=== PATIENT | male | born 1970 | race African-American/Black ===

== ENCOUNTER 2020-08-03 08:40 | Emergency (ER) | payer MEDICARE, SELFPAY ==
--- NOTE | 2020-08-03 09:01 | ED.GENADULT ---
HPI - General Adult General Chief complaint: Back Pain/Injury Stated complaint: sciatic nerve pain Time Seen by Provider: 08/03/20 09:01 Source: patient Mode of arrival: ambulatory Limitations: no limitations History of Present Illness HPI narrative: 50-year-old male patient presents to the [facility] with complaints of right-sided low back pain since late June. Patient states he has had multiple lumbar back surgeries before in the past and does have chronic issues with his sciatic nerve pain. Patient states that he was raking leaves late June and doing a lot of bending down and later on that day he developed some of the pain to the right side of the lower back that radiates down to the right leg. Patient denies any loss of bowel or bladder control and denies any falling. Patient states he is able to ambulate but does have increased pain when doing so. Patient denies any numbness or tingling down the legs at this time. Patient states he has been trying to treat this with [id number] Aleve and Tylenol which has not helped much. Patient states he does see a pain management doctor but has not been able to get in due to the holiday weekend. Patient states he has been given a Medrol dose pack and a steroid shot for this before in the past which has helped. Related Data Home Medications Medication Instructions Recorded Confirmed Fish Oil 08/03/20 amlodipine 08/03/20 ascorbate calcium (vitamin C) 08/03/20 cholecalciferol (vitamin D3) 08/03/20 omeprazole 08/03/20 Allergies Allergy/AdvReac Type Severity Reaction Status Date / Time No Known Allergies Allergy Verified 08/03/20 09:09 Review of Systems Review of Systems: Narrative: CONSTITUTIONAL: Denies fever, chills, or sweats. EYES: Denies visual changes, redness, or discharge. ENT: Denies rhinorrhea, congestion, sore throat, or otalgia. CARDIOVASCULAR: Denies chest pain, palpitations, or edema. RESPIRATORY: Denies cough or dyspnea. GASTROINTESTINAL: Denies abdominal pain, nausea, vomiting, or diarrhea. GENITOURINARY: Denies dysuria or hematuria. SKIN: Denies rash or itching. MUSCULOSKELETAL: Positive right-sided low back pain, denies joint pain, or myalgia. NEUROLOGIC: Denies headache, numbness, or weakness. PSYCHIATRIC: Denies anxiety or depression. PMFSH Surgical History Surgical History (Updated 08/03/20 @ 09:21 by RICHMOND Disla) Previous back surgery lumbar back surgery Social History Social History Gender identity (if verbalized by the patient): Male Comments At the time of my signature I agree with nursing past medical history, surgical, social, and family history. There is no relevant family history pertinent to the presenting complaint. Exam Narrative: Exam Narrative: GENERAL: Well-appearing, well-nourished, and in no acute distress. HEAD: Normocephalic, atraumatic. EYES: PERRLA and EOMI. ENT: Nares clear, no rhinorrhea or epistaxis. Mucous membranes moist. NECK: Supple. No lymphadenopathy CHEST: Clear to auscultation. No respiratory distress. HEART: Regular rate and rhythm. No murmur heard. Normal peripheral pulses. ABDOMEN: Soft, nontender, nondistended, normal active bowel sounds. EXTREMITIES: Normal range of motion. No edema. BACK: Patient is able to ambulated without assistance. Pt is seated on the stretcher in no obvouis distress. No surface trauma noted. muscle tenderness to Palpation to the right lateral lumbar spine area. Patient does have some pain to the center of the right buttock when pressure is applied and does radiate down the right leg when this is done. No spasm or mass. No step-offs or deformity noted to the cervical, thoracic or lumbar spine to firm Palpation at the midline. No CVA tenderness to percussion. No saddle anesthesia. ROM: able to stand erect. Decrease flexion, extension due to pain, normal lateral bending and rotation without limitation or comp
[2020-08-03 09:02] VITALS: BP 135/90; PULSE 93; RESP 16; TEMP 36.4; O2SAT 99
== END 2020-08-03 09:25 | disposition home or self-care (01) ==
PROVIDERS: Emergency Provider Nurse Practitioner Family
DX: M54.31 Sciatica, right side (principal); I10 Essential (primary) hypertension
CPT/HCPCS: 99203; G0463

== ENCOUNTER 2024-05-22 15:00 | Outpatient (RCR) | payer MEDICAID, SELFPAY ==
--- NOTE | 2024-02-29 14:14 | OPREHPOC ---
Outpatient Therapy Plan of Care This is a Multidisciplinary Plan of Care that may contain components documented by all disciplines (PT, OT, and ST.) PT Problem 1 PT Problem #1 Knowledge Deficit PT Goal 1 Goal *indep with HEP Target Visit 10 PT Problem 2 PT Problem #2 Impaired Strength PT Goal 1 Goal increase strength of R LE to improve walking and balance skills 1* single leg standing R x 10 seconds 2* sitting R ankle circles x 20 reps with good control Target Visit 8 PT Problem 3 PT Problem #3 Impaired Functional Mobil PT Goal 1 Goal 1* 2 minute walking test distance of 400' 2* with 2 minute walking test, no R toe drag 3* Robin balance score of 56/56 4* pt transfer sitting/floor with use of UE on mat , modified indep 5* up/down 12 steps with one hand railing, modified indep Target Visit 8
--- NOTE | 2024-02-29 14:14 | PTOPEVAL1 ---
Assessment and note entered by Joan Putnam, PT Evaluation Information Assessment Status Evaluation Diagnosis hemiparesis s/p CVA Onset Jul 2023 Subjective Information has completed in pt and [facility] therapy services; R hand dominant; taking baclofen for tone; R arm had botox injection; prior to CVA, lived alone, now live with sister Edna; indep with bathing, with tub seat and indep with dressing; sister assist with home tasks due to decrease use of L arm--laundry, cooking; have driven around the block only; 6 steps to enter home with bilateral hand rails. 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 Reported Pain Level Pain Score 0: Self Report Assessment PT Clinical Summary Govind has the diagnosis of R hemiparesis s/p CVA in July. He has completed in pt, [facility] therapy services. 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 His sister Edna was present during the eval. He currently is living with her. And is motivated to get stronger and return to work. With the evaluation: he has increased tone in R LE with foot drop with walking; indep with sit/ stand with use of 1 UE; 5 reps sit/stand time of 16 seconds with 1 UE; 2 minute walking test distance of 275'; single leg standing R 2 sec/ L 9 seconds and Robin balance score of 47/56. Skilled PT services are indicated to increase LE strength, balance, gait and mobility skills, to be more indep and return to active lifestyle. Plan of Care Interventions Gait Training,Neuro Re-education,Patient Education,Therapeutic Activities,Therapeutic Exercise PT Services Indicated Yes Treatment Frequency and 2x/wk for 8 visits Duration These treatments will address the objective and functional deficits as defined above. The patient will be advanced safely and appropriately in order for the patient to
--- NOTE | 2024-02-29 14:25 | PCPTNOTE ---
faxed request to medical provider for OT eval/treat; during eval, pt wants to have more therapy for his arm and hand.
--- NOTE | 2024-02-29 14:26 | PCPTNOTE ---
during the evaluation, pt reported he will not be able to attend therapy next week, March 03- due to not have transportation.
--- NOTE | 2024-03-27 10:12 | OTOPEVAL1 ---
Assessment and note entered by Yobany Toledo, JERRY/Scot, CHT Evaluation Information Assessment Status Evaluation Diagnosis Hemiparesis s/p CVA Onset 07/19/2023 Subjective Information Patient is s/p inpatient rehab and HH therapy. He is right handed and reports he takes baclofen for tone and he receives Botox injections to the arm. He reports he is unable to use the right arm for any tasks. Unable to use the arm to wash his face or feed himself. Unable to fold his clothes using the right. He states he functions 1-handed at this time. 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 Currently, he is living with sister, Edna. He is currently independent with bathing, with tub seat and independent with dressing and toileting. Sister assist with home tasks due to decrease use of right arm: laundry, cooking. His goal is to be able to help out in the kitchen by Thanksgiving/[place] time. Reported Pain Level Pain Score 0: Self Report Assessment OT Clinical Summary Patient referred to OT with right sided weakness, tone, and tightness following CVA ~9 months ago. Functionally he is severely limited with right UE use for ADLs. Skilled OT indicated to maximize functional strength, flexibility, and use of his right, dominant UE. Plan of Care Interventions Therapeutic Exercise,Manual Therapy,Neuro Re- education,Therapeutic Activities,Hot Pack/Cold Pack,Electrical Stimulation OT Services Indicated Yes Treatment Frequency and 2x/week for 8 visits Duration These treatments will address the objective and functional deficits as defined above. The patient will be advanced safely and appropriately in order for the patient to progress towards his/her prior level of function. Additional exercises will be introduced and as well as a comprehensive home exercise program upon discharge, if needed, ?to ensure carryover of functional gains achieved in the clinic. This treatment plan has been reviewed and agreement upon by the patient.
--- NOTE | 2024-03-27 10:12 | OPREHPOC ---
Outpatient Therapy Plan of Care This is a Multidisciplinary Plan of Care that may contain components documented by all disciplines (PT, OT, and ST.) PT Problem 1 PT Problem #1 Knowledge Deficit PT Goal 1 Goal *indep with HEP Target Visit 10 PT Problem 2 PT Problem #2 Impaired Strength PT Goal 1 Goal increase strength of R LE to improve walking and balance skills 1* single leg standing R x 10 seconds 2* sitting R ankle circles x 20 reps with good control Target Visit 8 PT Problem 3 PT Problem #3 Impaired Functional Mobil PT Goal 1 Goal 1* 2 minute walking test distance of 400' 2* with 2 minute walking test, no R toe drag 3* Robin balance score of 56/56 4* pt transfer sitting/floor with use of UE on mat , modified indep 5* up/down 12 steps with one hand railing, modified indep Target Visit 8 OT Problem 1 OT Problem #1 Knowledge Deficit OT Goal 1 Goal 1. Patient to be independent with instructed materials. Target Visit 8 OT Problem 2 OT Problem #2 Impaired Strength OT Goal 1 Goal Increase functional strength of the right shoulder as demonstrated by: 1. Patient being able to flex the shoulder to 90 degrees actively. 2. Patient being able to externally rotate the shoulder to touch his hand to the back of his head . 3. Patient being able to extend the shoulder 60 degrees. 4. Patient being able to internally rotate the shoulder to touch his hand to his low back. Target Visit 8 OT Problem 3 OT Problem #3 Impaired Flexibility OT Goal 1 Goal Increase functional flexibility as demonstrated by : 1. Patient able to extend the right elbow actively to -20 deg. of extension. Target Visit 8 OT Problem 4 OT Problem #4 Impaired Coordination
--- NOTE | 2024-04-01 13:08 | PCPTNOTE ---
pt canceled due to illness
--- NOTE | 2024-04-25 10:30 | OTOPPROG ---
Assessment and note entered by Yobany Toledo, JERRY/Scot, CHT Progress Update 04/25/24 Assessment Status Progress Diagnosis Hemiparesis s/p CVA Onset 07/19/2023 Subjective Information Patient reports progress in the right UE since the start of care. He reports he is able to reach and grasp items now. He is unable to carry items just yet. He is able to reach up and turn lights on/ off, now. He has been practicing reaching his face in prep for practicing self feeding, he reports when he grabs a food item his hand crushes it due to the tone. In the kitchen he is trying to use the right arm to open the fridge, but he is currently unable to do so. Assessment OT Clinical Summary Patient referred to OT with right sided weakness, tone, and tightness following CVA. He is progressing with functional ROM, strength, and use of the right UE. He is very motivated and compliant with all materials. Today he progressed to being able to complete more complex fine and gross motor activities. Continued skilled OT indicated to maximize functional strength, flexibility, and use of his right, dominant UE. Plan of Care Interventions Therapeutic Exercise,Manual Therapy,Neuro Re- education,Therapeutic Activities,Hot Pack/Cold Pack,Electrical Stimulation OT Services Indicated Yes Treatment Frequency and 2x/week for 10 visits Duration These treatments will address the objective and functional deficits as defined above. The patient will be advanced safely and appropriately in order for the patient to progress towards his/her prior level of function. Additional exercises will be introduced and as well as a comprehensive home exercise program upon discharge, if needed, ?to ensure carryover of functional gains achieved in the clinic. This treatment plan has been reviewed and agreement upon by the patient.
--- NOTE | 2024-04-25 10:30 | OPREHPOC ---
Outpatient Therapy Plan of Care This is a Multidisciplinary Plan of Care that may contain components documented by all disciplines (PT, OT, and ST.) PT Problem 1 PT Problem #1 Knowledge Deficit PT Goal 1 Goal / Goal Update *indep with HEP Target Visit 10 PT Problem 2 PT Problem #2 Impaired Strength PT Goal 1 Goal / Goal Update increase strength of R LE to improve walking and balance skills 1* single leg standing R x 10 seconds 2* sitting R ankle circles x 20 reps with good control Target Visit 8 PT Problem 3 PT Problem #3 Impaired Functional Mobil PT Goal 1 Goal / Goal Update 1* 2 minute walking test distance of 400' 2* with 2 minute walking test, no R toe drag 3* Robin balance score of 56/56 4* pt transfer sitting/floor with use of UE on mat , modified indep 5* up/down 12 steps with one hand railing, modified indep Target Visit 8 OT Problem 1 OT Problem #1 Knowledge Deficit OT Goal 1 Goal / Goal Update 1. Patient to be independent with instructed materials. ---OT POC UPDATE 04/25/24--- 1. Met, continue as HEP is progressed Target Visit 18 OT Problem 2 OT Problem #2 Impaired Strength OT Goal 1 Goal / Goal Update Increase functional strength of the right shoulder as demonstrated by: 1. Patient being able to flex the shoulder to 90 degrees actively. 2. Patient being able to externally rotate the shoulder to touch his hand to the back of his head . 3. Patient being able to extend the shoulder 60 degrees. 4. Patient being able to internally rotate the shoulder to touch his hand to his low back. ---OT POC UPDATE 04/25/24--- 1. Met, progress to 120 degrees 2. Not met, continue 3. Not met, continue 4. Not met, continue Target Visit 18 OT Problem 3 OT Problem #3 Im
--- NOTE | 2024-05-08 14:24 | OPREHPOC ---
Outpatient Therapy Plan of Care This is a Multidisciplinary Plan of Care that may contain components documented by all disciplines (PT, OT, and ST.) PT Problem 1 PT Problem #1 Knowledge Deficit PT Goal 1 Goal / Goal Update *indep with HEP Target Visit 10 Progress Met PT Problem 2 PT Problem #2 Impaired Strength PT Goal 1 Goal / Goal Update increase strength of R LE to improve walking and balance skills 1* single leg standing R x 10 seconds 2* sitting R ankle circles x 20 reps with good control Target Visit 8 Progress Met PT Problem 3 PT Problem #3 Impaired Functional Mobil PT Goal 1 Goal / Goal Update 1* 2 minute walking test distance of 400' 2* with 2 minute walking test, no R toe drag 3* Robin balance score of 56/56 4* pt transfer sitting/floor with use of UE on mat , modified indep 5* up/down 12 steps with one hand railing, modified indep Target Visit 8 Progress Partially Met OT Problem 1 OT Problem #1 Knowledge Deficit OT Goal 1 Goal / Goal Update 1. Patient to be independent with instructed materials. ---OT POC UPDATE 04/25/24--- 1. Met, continue as HEP is progressed Target Visit 18 OT Problem 2 OT Problem #2 Impaired Strength OT Goal 1 Goal / Goal Update Increase functional strength of the right shoulder as demonstrated by: 1. Patient being able to flex the shoulder to 90 degrees actively. 2. Patient being able to externally rotate the shoulder to touch his hand to the back of his head . 3. Patient being able to extend the shoulder 60 degrees. 4. Patient being able to internally rotate the shoulder to touch his hand to his low back. ---OT POC UPDATE 04/25/24--- 1. Met, progress to 120 degrees 2. Not met, continue 3. Not met, continue
--- NOTE | 2024-05-08 14:25 | PTOPPROG ---
Assessment and note entered by Kwasi Rutherford, PT Evaluation Information Assessment Status Progress Diagnosis Hemiparesis s/p CVA Onset Jul 2023 Subjective Information Reports that he feels he is seeing consistent progress at this time. Leg feels it is getting stronger. He has been working with OT as well and feels that hand is coming along well. Feels he can continue to work on his balance and leg control and would like to continue therapy to address these deficits. Assessment PT Clinical Summary Patient has seen slow but positive progress to this point in therapy, Strength is improved and we saw an improvement in balance measures and walk testing. Still below baseline prior to CVA and shows continued potential to reach listed goals. Patient will benefit from skilled therapy to address deficits for custodial improvement. Plan of Care Interventions Gait Training,Neuro Re-education,Patient/Caregiver Educati,Therapeutic Activities,Therapeutic Exercise PT Services Indicated Yes Treatment Frequency and 2x/week for 8 visits Duration These treatments will address the objective and functional deficits as defined above. The patient will be advanced safely and appropriately in order for the patient to progress towards his/her prior level of function. Additional exercises will be introduced and as well as a comprehensive home exercise program upon discharge, if needed, ?to ensure carryover of functional gains achieved in the clinic. This treatment plan has been reviewed and agreement upon by the patient.
--- NOTE | 2024-05-20 14:19 | PCOTNOTE ---
Patient did not show up for scheduled appointment this date.
--- NOTE | 2024-05-27 15:08 | PCOTNOTE ---
Patient did not show up for scheduled appointment this date. Called and got ahold of the patient's Sister. She is at work and stated he was supposed to call and cancel. Patient's Sister is his ride and was reminded of upcoming appointment on the .
--- NOTE | 2024-05-29 10:31 | PCPTNOTE ---
Pt arrived for his appointment this AM, but then decided he didn't want to be seen today as his sciatica is very severe, and the steroid dose pack he was prescribed hasn't kicked in yet
--- NOTE | 2024-05-29 11:25 | PCOTNOTE ---
Pt. arrived for treatment sessions, left due to illness. Treatment cancelled.
--- NOTE | 2024-06-23 09:39 | PCPTNOTE ---
This treatment is being continued on visit number [id number] Please see documentation on both accounts to view progress. Completed interventions, outcomes, and problems have been marked as Inactive to facilitate the copying of the Care plan routine for recurring accounts.
== END 2024-05-29 23:59 | disposition home or self-care (01) ==
LOC: ANHOT 15:00
PROVIDERS: PCP Physician Assistant; Visit Provider Physician Assistant
DX: G81.90 Hemiplegia, unspecified affecting unspecified side (principal)
CPT/HCPCS: 97110; 97112; 97116; 97161; 97165; 97530

== ENCOUNTER 2024-08-14 15:00 | Outpatient (RCR) | payer MEDICAID, SELFPAY ==
--- NOTE | 2024-06-05 11:15 | PCPTNOTE ---
No call no show. Pt read schedule wrong. YSABELS
--- NOTE | 2024-06-19 15:51 | OPREHPOC ---
Outpatient Therapy Plan of Care This is a Multidisciplinary Plan of Care that may contain components documented by all disciplines (PT, OT, and ST.) PT Problem 1 PT Problem #1 Knowledge Deficit PT Goal 1 Goal / Goal Update *indep with HEP Target Visit 10 Progress Met PT Problem 2 PT Problem #2 Impaired Strength PT Goal 1 Goal / Goal Update increase strength of R LE to improve walking and balance skills 1* single leg standing R x 10 seconds 2* sitting R ankle circles x 20 reps with good control Target Visit 8 Progress Not Met PT Goal 2 Goal / Goal Update 06-19-24 progress goals not met continue towards Target Visit 19 PT Problem 3 PT Problem #3 Impaired Functional Mobil PT Goal 1 Goal / Goal Update 1* 2 minute walking test distance of 400' 2* with 2 minute walking test, no R toe drag 3* Robin balance score of 56/56 4* pt transfer sitting/floor with use of UE on mat , modified indep 5* up/down 12 steps with one hand railing, modified indep Target Visit 8 Progress Not Met PT Goal 2 Goal / Goal Update 06-19-24 progress goal 5 achieved; #3 Robin improved to 51/56 continue towards goals Target Visit 19 OT Problem 1 OT Problem #1 Knowledge Deficit OT Goal 1 Goal / Goal Update 1. Patient to be independent with instructed materials. ---OT POC UPDATE 04/25/24--- 1. Met, continue as HEP is progressed Target Visit 18 OT Problem 2 OT Problem #2 Impaired Strength OT Goal 1 Goal / Goal Update Increase functional strength of the right shoulder as demonstrated by: 1. Patient being able to flex the shoulder to 90 degrees actively. 2. Patient being able to externally rotate the shoulder to touch his hand to the back of his head . 3. Patient being able to extend the shoulder 60 degrees. 4. Patient being able to internally rotate the shoulder to touch his hand to his low back. ---OT POC UPDATE 04/25/24--- 1. Met, progress to 120 degrees 2. Not met, continue 3. Not met, continue 4. Not met, continue Target Visit 18 OT Problem 3 OT Problem #3 Impaired Flexibility OT Goal 1 Goal / Goal Update Increase functional flexibility as demonstrated by : 1. Patient able to extend the right elbow actively to -20 deg. of extension. ---OT POC UPDATE 04/25/24--- 1. Not met, continue Target Visit 18 OT Problem 4 OT Problem #4 Impaired Coordination OT Goal 1 Goal / Goal Update Increase functional coordination of the (R) UE as demonstrated by: 1. Patient able to reach, grab, and release a cone from table and counter height. 2. Patient able to complete the 9-hole peg test with the right hand. ---OT POC UPDATE 04/25/24--- 1. Met, progress to being able to place cone on upper shelf and actively release 2. Not met, continue [facility] Target Visit 18
--- NOTE | 2024-06-19 15:52 | PTOPPROG ---
Assessment and note entered by Joan Putnam, PT Progress report Assessment Status Progress Diagnosis Hemiparesis s/p CVA Onset Jul 2023 Subjective Information getting stronger and balance is better-- able to stand up from toliet and the chair better; am walking about 2 blocks, 2x/wk for exercise; around the house, doing everything myself; still use the shower chair for safety; doing OK the stairs at home, have not had any falls; need to work more on my walking balance, still feel like knee marleen and weak sometimes; Need to have surgery on his neck--trying to hold off until after the holidays. going to have botox injection into R leg Jul 11. Assessment PT Clinical Summary Govind has received a total of 11 PT sessions. He recently has been having back pain and neck pain. Compared to the last progress report: improved with Robin balance score to 51/56- has problems with small base of support, single leg standing and alternate toe tap activities; he has not had any falls; is doing more home activities and increase activity level; 2 minute walking test distance is the same at 375'; decreased R ankle DF causes gait pattern of flat foot pattern with some circumduction of lower leg and foot drag with fatigue. With the leg press for 15 reps: R 80# and L 100#. Education has been provided with updated HEP as he improves and gait training. The goals were partially achieved. Continue PT to further increase LE strength, gait and balance skills, to return to previous activity level. Plan of Care Interventions Gait Training,Neuro Re-education,Patient/Caregiver Education,Therapeutic Activities,Therapeutic Exercise PT Services Indicated Yes Treatment Frequency and 2x/wk for 8 visits Duration These treatments will address the objective and functional deficits as defined above. The patient will be advanced safely and appropriately in order for the patient to progress towards his/her prior level of function. Additional exercises will be introduced and as well as a comprehensive home exercise program upon discharge, if needed, ?to ensure carryover of functional gains achieved in the clinic. This treatment plan has been reviewed and agreement upon by the patient.
--- NOTE | 2024-06-23 09:38 | PCPTNOTE ---
This treatment is being continued from visit number [id number] Please see documentation on both accounts to view progress. Completed interventions, outcomes, and problems have been marked as Inactive to facilitate the copying of the Care plan routine for recurring accounts.
--- NOTE | 2024-06-30 15:54 | OTOPPROG ---
Assessment and note entered by Yobany Toledo, JERRY/Scot, CHT OT Progress Update 06/30/24 Diagnosis Hemiparesis s/p CVA Onset 07/19/2023 Subjective Information Patient reports continued progress in the right UE . Reports his hand is getting stronger. He has been reaching, grasping, and carrying items now. He has been able to open the fridge now. He continues to be unable to use a fork to feed himself with this hand. Shoulder flexion improved from 90 to 110 deg. Elbow flexion decreased from 130 to 120 deg. Elbow extension remained at -20 deg. Forearm pronation is WFL Forearm supination improved from neutral to 20 deg . Wrist flexion remained at 45 deg. Wrist extension improved from 45 to 60 deg. Finger flexion is WFL Finger extension abilities fluctuate due to tone. He continues to have difficulties releasing objects. 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 Assessment OT Clinical Summary Patient referred to OT with right sided weakness, tone, and tightness following CVA. He is progressing with functional ROM, strength, and use of the right UE. He is very motivated and compliant with all materials. Continued skilled OT indicated to maximize functional strength, flexibility, and use of his right, dominant UE. Plan of Care Interventions Therapeutic Exercise,Manual Therapy,Neuro Re- education,Therapeutic Activities,Hot Pack/Cold Pack,Electrical Stimulation OT Services Indicated Yes Treatment Frequency and 2x/week for 8 visits Duration These treatments will address the objective and functional deficits as defined above. The patient will be advanced safely and appropriately in order for the patient to progress towards his/her prior level of function. Additional exercises will be introduced and as well as a comprehensive home exercise program upon discharge, if needed, ?to ensure carryover of functional gains achieved in the clinic. This treatment plan has been reviewed and agreement upon by the patient.
--- NOTE | 2024-06-30 15:54 | OPREHPOC ---
Outpatient Therapy Plan of Care This is a Multidisciplinary Plan of Care that may contain components documented by all disciplines (PT, OT, and ST.) PT Problem 1 PT Problem #1 Knowledge Deficit PT Goal 1 Goal / Goal Update *indep with HEP Target Visit 10 Progress Met PT Problem 2 PT Problem #2 Impaired Strength PT Goal 1 Goal / Goal Update increase strength of R LE to improve walking and balance skills 1* single leg standing R x 10 seconds 2* sitting R ankle circles x 20 reps with good control Target Visit 8 Progress Not Met PT Goal 2 Goal / Goal Update 06-19-24 progress goals not met continue towards Target Visit 19 PT Problem 3 PT Problem #3 Impaired Functional Mobil PT Goal 1 Goal / Goal Update 1* 2 minute walking test distance of 400' 2* with 2 minute walking test, no R toe drag 3* Robin balance score of 56/56 4* pt transfer sitting/floor with use of UE on mat , modified indep 5* up/down 12 steps with one hand railing, modified indep Target Visit 8 Progress Not Met PT Goal 2 Goal / Goal Update 06-19-24 progress goal 5 achieved; #3 Robin improved to 51/56 continue towards goals Target Visit 19 OT Problem 1 OT Problem #1 Knowledge Deficit OT Goal 1 Goal / Goal Update 1. Patient to be independent with instructed materials. ---OT POC UPDATE 04/25/24--- 1. Met, continue as HEP is progressed ---OT POC UPDATE 06/30/24--- 1. Met, continue as HEP is progressed Target Visit 20 OT Problem 2 OT Problem #2 Impaired Strength OT Goal 1 Goal / Goal Update Increase functional strength of the right shoulder as demonstrated by: 1. Patient being able to flex the shoulder to 90 degrees actively. 2. Patient being able to externally rotate the shoulder to touch his hand to the back of his head . 3. Patient being able to extend the shoulder 60 degrees. 4. Patient being able to internally rotate the shoulder to touch his hand to his low back. ---OT POC UPDATE 04/25/24--- 1. Met, progress to 120 degrees 2. Not met, continue 3. Not met, continue 4. Not met, continue ---OT POC UPDATE 06/30/24--- 1. Progressed to 110, continue 2. Not met, continue 3. Not met, continue 4. Not met, continue Target Visit 20 OT Problem 3 OT Problem #3 Impaired Flexibility OT Goal 1 Goal / Goal Update Increase functional flexibility as demonstrated by : 1. Patient able to extend the right elbow actively to -20 deg. of extension. ---OT POC UPDATE 04/25/24--- 1. Not met, continue ---OT POC UPDATE 06/30/24--- 1. Met Target Visit 20 OT Problem 4 OT Problem #4 Impaired Coordination OT Goal 1 Goal / Goal Update Increase functional coordination of the (R) UE as demonstrated by: 1. Patient able to reach, grab, and release a cone from table and counter height. 2. Patient able to complete the 9-hole peg test with the right hand. ---OT POC UPDATE 04/25/24--- 1. Met, progress to being able to place cone on upper shelf and actively release 2. Not met, continue [facility] [place] ---OT POC UPDATE 06/30/24--- 1. Not met 2. Not met Target Visit 20
--- NOTE | 2024-07-17 13:16 | PCOTNOTE ---
Pt. canceled OP OT appointment today due to inability to acquire transportation to appointment
--- NOTE | 2024-07-17 15:17 | PCPTNOTE ---
Pt cancelled due to illness.
--- NOTE | 2024-07-24 12:04 | PCPTNOTE ---
Pt canceled due to absessed tooth pain.
--- NOTE | 2024-07-29 15:52 | PCPTNOTE ---
Pt canceled due to havig 4 teeth pulled earlier today and is in 9/10 pain.
--- NOTE | 2024-08-11 15:58 | OTOPDC ---
Assessment and note entered by Yobany Toledo, OTChase/Scot, CECE OT D/C Report 08/11/24 Diagnosis Hemiparesis s/p CVA Onset 07/19/2023 Subjective Information Patient reports continued progress in the right UE . Reports his hand is getting stronger. He has been reaching, grasping, and carrying items now. He has been able to open the fridge now. He continues to be unable to use a fork to feed himself with this hand. Shoulder flexion improved from 90 to 110 deg. Elbow flexion decreased from 130 to 120 deg. Elbow extension remained at -20 deg. Forearm pronation is WFL Forearm supination improved from neutral to 20 deg Wrist flexion remained at 45 deg. Wrist extension improved from 45 to 60 deg. Finger flexion is WFL Finger extension abilities fluctuate due to tone. He continues to have difficulties releasing objects. 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 Assessment OT Clinical Summary Patient referred to OT with right sided weakness, tone, and tightness following CVA. Patient demonstrates no progress with shoulder, elbow, or wrist ROM. 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 We reviewed ROM and strengthening HEP today and discussed how he can continue to work on his fine motor coordination. At this time we are discharging with a progress plateau. Plan of Care OT Services Indicated No
--- NOTE | 2024-08-14 15:40 | PTOPDC ---
Assessment and note entered by Joan Putnam, PT Assessment Status Discharge Diagnosis Hemiparesis s/p CVA Onset Jul 2023 Subjective Information have been doing the exercises at home; been going out and shopping; doing OK on stairs; is doing everything with legs and walking; am able to drive again; Reported Pain Level Pain Score 0: Self Report Assessment PT Clinical Summary Govind has received a total of 15 PT sessions, from February 28 to today. He has not had any falls. Compared to the last progress report: improved with activity --doing all home and self care tasks , driving and shopping; increase Robin balance score to 55/56; 2 minute walking test distance is less, but he is walking slower, to control R LE and improved placement of R LE; 12 steps with one hand railing modified indep; continues to have decrease motor control of R LE and ankle numbness; indep with HEP; The goals were partially met. Discharge PT. He is to continue with his HEP and increase activity as tolerated. Plan of Care PT Services Indicated No
== END 2024-08-15 10:53 | disposition home or self-care (01) ==
LOC: ANHPT 15:00
PROVIDERS: PCP Physician Assistant; Visit Provider Physician Assistant
DX: I69.351 Hemiplegia and hemiparesis following cerebral infarction affecting right dominant side (principal)
CPT/HCPCS: 97110; 97112; 97140; 97530

== ENCOUNTER 2024-10-15 04:08 | Emergency (ER) | payer MEDICAID, SELFPAY ==
--- NOTE | ~2024-10-15 | CT_ITS ---
Noncontrast CT scan of the lumbar spine CLINICAL HISTORY: Back pain, sciatica TECHNIQUE: Axial noncontrast imaging of the lumbar spine was performed. Sagittal and coronal reformat king images were constructed. Dose reduction technique was used on this scan by utilizing automated ex posure control and iterative reconstruction technique. The dose-length product (DLP) was 1572.80 mGy- cm. FINDINGS: There is no acute fracture or subluxation of the lumbar spine. Vertebral bodies maintain no rmal height and alignment. At L1-L2, there is mild degenerative disc narrowing. There is minimal disc bulge with moderate facet arthropathy. There is mild central canal stenosis. There is moderate bilateral neural foraminal narro wing. At L2-L3, there is moderate degenerative disc narrowing. There is disc bulge and moderate facet arthr opathy, with moderate central canal stenosis. There is advanced right neural foraminal narrowing, and mild to moderate left neural foraminal narrowing. At L3-L4, there is moderate degenerative distended. There is mild disc bulge with moderate facet arth ropathy. There is mild central canal stenosis. There is moderate left neural foraminal narrowing, and moderate to advanced right neural foraminal narrowing. At L4-L5, there is diffuse disc bulge and possible left paracentral disc protrusion or extrusion. The re is mild facet arthropathy. There is moderate to severe spinal canal stenosis. There is advanced bi lateral neural foraminal narrowing. L5-S1, there is no disc bulge or herniation. No definite spinal canal stenosis. There is moderate rig ht neural foraminal narrowing. Paravertebral soft tissues are unremarkable. Impression: No acute abnormality evident. Probable advanced degenerative spondylosis, as above. Consider follow-up nonemergent MR to further ev aluate, as indicated. Reviewed, dictated and finalized at location M. EAR FUEL ENRICHMENT TECHNICIAN Impression: No acute abnormality evident. Probable advanced degenerative spondylosis, as above. Consider follow-up noneme rgent MR to further evaluate, as indicated.
[2024-10-15 04:09] VITALS: BP 147/92; PULSE 89; RESP 20; TEMP 36.8; O2SAT 100
--- NOTE | 2024-10-15 04:29 | ED_ITS ---
HPI - Back Pain/Injury General Chief Complaint: Back Pain/Injury Stated Complaint: Leg pain/hx of sciatica Time Seen by Provider: 10/15/24 04:11 Source: patient and family Mode of arrival: EMS Limitations: no limitations History of Present Illness HPI Narrative: Patient has a history of stroke. He receives botox injections but was at that appointment and advised to go to the ER due to low back pain. He was in the [facility] waiting room for many hours and reports being given Tylenol and Flexeril but ultimately left due to the wait and someone in the waiting room walking around telling everyone he had covid. Has been taking ibuprofen 600mg or 800mg doses. History of sciatica with ride sided pain. He fell at 0400 yesterday which made pain worse. States he fell becaues his right leg gave out since it is still somewhat weak after stroke. Pain radiates to foot. Has had paresthesias throughout the entire R leg. Says he has been incontinent of urine, when asked if it is because he hasn't been able to sense himself go versus in too much pain to get to the bathroom in time, he states both. He has also had difficulty having a bowel movement as sitting down on the toilet hurts. No saddle anesthesia. Has had spinal surery before. Related Data Home Medications ?Medication ?Instructions ?Recorded ?Confirmed ?Last Taken ?Type aspirin 81 mg chewable tablet 81 mg PO DAILY 07/24/23 07/24/23 07/24/23 08:37 History (Aspirin Childrens) atorvastatin 40 mg tablet 40 mg PO HS 07/24/23 07/24/23 07/23/23 21:40 History carvedilol 12.5 mg tablet 12.5 mg PO BIDWM 07/24/23 07/24/23 07/24/23 08:37 History empagliflozin 10 mg tablet 10 mg PO DAILY 07/24/23 07/24/23 07/24/23 08:37 History (Jardiance) fluoxetine 20 mg capsule 20 mg PO DAILY 07/24/23 07/24/23 07/24/23 08:38 History furosemide 20 mg tablet 20 mg PO DAILY 07/24/23 07/24/23 07/24/23 08:38 History insulin aspart U-100 100 unit/mL 1 sliding scale dose subcut 07/24/23 07/24/23 Unknown History subcutaneous solution USEASDIRECTD lidocaine 5 % topical patch 1 patch topical DAILY 07/24/23 07/24/23 Unknown History (Lidoderm) polyethylene glycol 3350 17 gram 17 g PO DAILY PRN Constipation 07/24/23 07/24/23 Unknown History oral powder packet (Miralax) sennosides 8.6 mg-docusate sodium 1 tab-cap PO HS PRN Constipation 07/24/23 07/24/23 Unknown History 50 mg tablet (Senna with Docusate Sodium) spironolactone 25 mg tablet 25 mg PO DAILY 07/24/23 07/24/23 07/24/23 08:37 History Allergies Allergy/AdvReac Type Severity Reaction Status Date / Time No Known Allergies Allergy Verified 08/03/20 09:09 [facility] Past Medical History Medical History (Updated 10/16/24 @ 22:34 by Kelly Cancino MD) Sciatica, right side CVA (cerebral vascular accident) R sided deficits are improving Surgical History Surgical History Previous back surgery lumbar back surgery Social History Social History Smoking status: Former smoker Gender identity (if verbalized by the patient): Male Exam Narrative: GENERAL: Well-appearing, well-nourished, and in no acute distress. HEAD: Normocephalic, atraumatic. EYES: Non injected, non icteric ENT: Nares clear, no rhinorrhea or epistaxis. NECK: Supple. CHEST: Speaking in full sentences. No respiratory distress. HEART: Regular rate and rhythm. . ABDOMEN/ROSA: Obese. Soft, nondistended. Normal rectal tone. No palpable ball of stool in rectal vault. BACK/EXTREMITIES: Normal range of motion. Able to flex and extend at lumbar spine. 5/5 strength with bilateral knee flexion/extension, ankle dorsiflexion/plantarflexion, hip flexion/abduction/adduction. No lower extrem ity edema. Well healed lumbar surgical scar w/o overlying erythema or abscess. No midine TTP, bones w/o step offs or obvious deformiteis. SKIN: Warm, dry, no rash. NEURO: No focal deficits. Alert and oriented x3. Sensation intact throughout bilateral lower extremities. PSYCH: Normal mood and affect. Course Vital Signs Vital signs: Vital Signs Temperature 98.2 F 10/15/24 04:09 Pulse Rate 89 10/15/24 04:09 Respiratory Rate 20 10/15/24 04:09 Blood Pressure 147/92 H 10/15/24 04:09 Pulse Oximetry 100 10/15/24 04:09 Temperature 98.2 F 10/15/24 04:09 Pulse Rate 89 10/15/24 04:09 Respiratory Rate 20 10/15/24 04:09 Blood Pressure 147/92 H 10/15/24 04:09 Pulse Oximetry 100 10/15/24 04:09 MDM - Back Pain/Injury MDM Narrative Medical decision making narrative: Patient presents with low back pain radiating into R leg. History of sciatica on this side. Fell yesterday which made it worse. In the emergency department he is afebrile with vital signs notable for hypertension. Received morphine EN route by EMS. Because of the preceding trauma, will obtain CT imaging. Patient was in significant pain on initial assessment thus unable to complete full physical exam. Given Dilaudid. Back has no deformities, external skin changes, or signs of trauma. Curvature is within normal limits. No tenderness is noted on palpation of the spinous processes which are midline. Patient demonstrates flexion, extension. Sensation to the lower extremities is normal bilaterally. Dorsi/plantar flexion is normal bilaterally. CT was obtained prior to patient voiding. Patient gave urine sample and his postvoid residual was 400mL per RN. This is concerning on its own but his physical exam is without any neurological deficits to suggest epidural compression syndrome. Patient reassessed at approximately 6:35 a.m. and he is feeling improved. Discharged in stable condition but encouraged to follow up with PCP and pain doctor and given strict ED return precautions. Prescribed multimodal pain strategy including steroids as he states these had previously helped tremendously. Evidence of stool and urine on CT; advised fiber diet as I suspect that may be the cause of/contributing to pyura. Differential Diagnosis Differential diagnosis: Likely lumbar radiculopathy, sciatica, strain of lumbar region and other (compression/cauda equina) Lab Data Attestation: I reviewed the patient's lab results. Labs: Lab Results 10/15/24 Range/Units 05:34 Urine Color Yellow (Yellow) Urine Appearance Clear (Clear) Urine pH 7.0 (5.0-9.0) Ur Specific [place] 1.015 (1.001-1.035) Urine Protein Negative (Negative) mg/dL Urine Glucose (UA) Negative (Negative) mg/dL Urine Ketones Negative (Negative) mg/dL Ur Blood (Man) Negative (Negative) Urine Nitrate Negative (Negative) Urine Bilirubin Negative (Negative) Urine Urobilinogen 1.0 (<2.0) mg/dL Leukocyte Esterase Rfl Trace H (Negative) GINA/UL Urine RBC 0-2 (0-2) /hpf Urine WBC 6-10 H (0-3) /hpf Ur Squamous Epith Cells None seen (Few) /hpf Urine Bacteria None seen /hpf Urine Casts 0-2 Imaging Data Radiologist's impression: CT L Spine Stat Rad: No evidence of acutely displaced fracture or dislocation in the lumbar spine. Degenerative changes. Consider MRI if there is further concern. Findings suspicious for right L3-L4 hemilaminectomy changes. Cholecystectomy changes. Rectal vault distension measuring up to 8.7 cm. Consider disimpaction. Distention of the urinary bladder. Consider decompression. Discharge Plan Discharge Clinical Impression: Pyuria, Low back pain with right-sided sciatica Patient Disposition: Home, Self-Care Condition: Stable Instructions: Antibiotic Form, High Fiber Diet (ED), Sciatica (ED), Lower Back Exercises (ED) Additional Instructions: As we discussed, a multimodal pain approach can help balance rest with maintaining movement and activity. Acetaminophen/Tylenol (maximum 4000 mg per day) is safe to take with NSAIDs (ibuprofen/Motrin) for pain relief. Follow-up with primary care physician. Return to the ER if you have increased pain in your back, you develop lower extremity weakness/numbness/paralysis, you have numbness or tingling in your private parts, or you are unable to control your ability to urinate/stool. Patient Language: Mac[place] Prescriptions: New lidocaine 4 % adhesive patch,medicated 1 patch topical DAILY PRN (Reason: pain) Qty: 5 0RF methocarbamol 750 mg tablet 1,500 mg PO HS Qty: 14 0RF ibuprofen 600 mg tablet 600 mg PO TID PRN (Reason: pain) Qty: 30 0RF acetaminophen 500 mg capsule 1,000 mg PO Q6H PRN (Reason: pain) Qty: 30 0RF prednisone 20 mg tablet 40 mg PO DAILY 4 Days Qty: 8 0RF Rx Instructions: Start 10/16/2024; received 1st dose in ER 10/15 No Action atorvastatin 40 mg Tablet 40 mg PO HS carvedilol 12.5 mg Tablet 12.5 mg PO BIDWM Rx Instructions: must administer with a meal/food polyethylene glycol 3350 [Miralax] 17 gram Powder In Packet 17 g PO DAILY PRN (Reason: Constipation) Rx Instructions: Clarify 1st line vs 2nd line sennosides-docusate sodium [Senna with Docusate Sodium] 8.6-50 mg Tablet 1 tab-cap PO HS PRN (Reason: Constipation) Rx Instructions: Clarify 1st line vs 2nd line spironolactone 25 mg Tablet 25 mg PO DAILY insulin aspart U-100 100 unit/mL Solution 1 sliding scale dose SUBCUT USEASDIRECTD lidocaine [Lidoderm] 5 % Adhesive Patch,Medicated 1 patch TOPICAL DAILY Rx Instructions: leave on most painful area for up to 12 hrs aspirin [Aspirin Childrens] 81 mg Tablet,Chewable 81 mg PO DAILY furosemide 20 mg Tablet 20 mg PO DAILY fluoxetine 20 mg Capsule 20 mg PO DAILY Jardiance 10 mg Tablet 10 mg PO DAILY hydrocodone-acetaminophen 5-325 mg Tablet 1 tablet PO Q6H PRN (Reason: Pain Rated 4-10) Qty: 12 0RF melatonin 3 mg Tablet 6 mg PO HS Qty: 30 0RF amlodipine [Norvasc] 5 mg Tablet 10 mg PO DAILY Qty: 30 0RF pantoprazole 40 mg Tablet,Delayed Release (Dr/Ec) 40 mg PO QAM PRN (Reason: heartburn) Qty: 30 0RF losartan 25 mg Tablet 25 mg PO BID Qty: 30 0RF Follow-up/Referrals: Rosa,VAIBHAV James [Primary Care Provider] - Stand Alone Forms: Work/School Release IP Time of Disposition: 06:47
--- OUTSIDE RECORDS SUMMARY | 2024-10-15 05:16 | XMS_ITS | Patient Health Summary ---
Author Organization [facility] Address [address] [place] [address] Care Team Providers Care Supervisor International Reservations Name Role Phone Erika Kimble Primary Care Pr ovider Note from [facility],non-owned Affiliates and Associated Physician Practices is amultiple site organization consisting of ambulatory clinics and hospital sitesin [place], [place], [place] and [place]. This disclosure is being madepursuant to the Care Everywhere program and may not contain all information available regarding this patient. Last updated 18.[facility] Allergies No known active allergies Medications * Be aware that medications may not be up to date on this document. Alwaysverify current medications with the patient. * aspirin (Aspirin) 81 MG chew tablet(Started 08/15/2023) Take 1 (one) tablet by mouth once daily 11 refills by 08/14/2024 * atorvastatin (Lipitor) 40 MG tablet(Started 08/15/2023) Take 1 (one) tablet by mouth at bedtime 11 refills by 08/14/2024 * FLUoxetine (PROzac) 20 MG capsule(Started 09/11/2023) Take 1 (one) capsule by mouth once daily 2 refills by 09/10/2024 * metFORMIN (Glucophage) 500 MG tablet(Started 09/11/2023) Take 1 (one) tablet by mouth 2 times daily with morning and evening meal 2 refills by 09/10/2024 * amLODIPine (Norvasc) 10 MG tablet(Started 10/11/2023) Take 1 (one) tablet by mouth once daily 3 refills by 10/10/2024 * furosemide (Lasix) 20 MG tablet(Started 10/11/2023) Take 1 (one) tablet by mouth once daily 3 refills by 10/10/2024 * spironolactone (Aldactone) 25 MG tablet(Started 10/11/2023) Take 1 (one) tablet by mouth once daily 3 refills by 10/10/2024 * valsartan (Diovan) 40 MG tablet(Started 10/11/2023) Take 1 (one) tablet by mouth 2 times daily 3 refills by 10/10/2024 * baclofen (Lioresal) 10 MG tablet(Started 11/07/2023) Take 0.5 (one-half) tablet by mouth 3 times daily May cause drowsiness. 5 refills by 11/06/2024 * carvedilol (Coreg) 6.25 MG tablet(Started 10/10/2024) TAKE 1 TABLET BY MOUTH TWICE DAILY WITH MORNING MEAL AND WITH EVENING MEAL * clindamycin (Cleocin) 300 MG capsule TAKE 1 CAPSULE BY MOUTH EVERY 6 HOURS * botulinum toxin type A 100 units/1 ml (Botox) 100 UNIT injection(Started 10/14/2024) Inject 5 mL into muscle Every 90 days for 90 days Reasons: Muscle Spasticity 3 refills by 10/14/2025 Ended Medications* carvedilol (Coreg) 12.5 MG tablet(Started 02/20/2024) (Discontinued) Take 1 tablet twice a day by oral route. * botulinum toxin type A 100 units/1 ml (Botox) 100 UNIT injection(Started 07/11/2024)(Discontinued) Inject 5 mL into muscle Every 90 days for 90 days Reasons: Muscle Spasticity 3 refills by 07/11/2025 Active Problems Problem Noted Date Diagnosed Date Depression 07/22/2023 HFrEF (heart failure with reduced ejection fract ion) 07/22/2023 Dysarthria 07/19/2023 Facial droop 07/19/2023 Hypoxia 07/19/2023 Right sided weakness 07/19/2023 Essential hypertension 07/19/2023 Closed dislocation of elbow 11/14/2009 Resolved Problems Problem Noted Date Diagnosed Date Resolved Date Cardiomyopathy, idiopathic 10/26/2023 0 04/01/2024 Social History Tobacco Use Types Packs/Day Years Used Date Smoking Tobacco: Light Smoker Cigarettes Smokeless Tobacco: Never Tobacco Cessation:Ready to Q uit: Not Asked; Counseling Given: Not Answered Alcohol Use Standard Drinks/Week Comments Not Currently 0 (1 standard drink = 0.6 oz pur e alcohol) AUDIT-C Answer Date Recorded Q1: How often do you have a drink containing alcohol? 4 or more times a week 07/19/2023 Q2: How many drinks containi ng alcohol do you have on a typical day when you are drinking? 10 or more Q3: How often do you have si x or more drinks on one occasion? Daily or almost daily 07/19/2023 Overall Financial Resource Strain (CARDIA) Answe r Date Recorded How hard is it for you to pa y for the very basics like food, housing, medical care, and heating? Not hard at all 07/20/2023 PHQ-2 Answer Date Recorded Patient Health Questionnaire-2 Score 1 07/22/2023 [facility] - Occupational Stress Questionnaire Answer Date Recorded Do you feel stress - tense, restless, nervous, or anxious, or unable to sleep at night because your mind is troubled all the time - these days? Very much 07/20/2023 Hunger Vital Sign Answer Date Recorded Within the past 12 months, y ou worried that your food would run out before you got the money to buy more. Never true 07/20/20 23 Within the past 12 months, t he food you bought just didn't last and you didn't have money to get more. Never true 07/20/2023 PRAPARE - Transportation Answer Date Re corded In the past 12 months, has l ack of transportation kept you from medical appointments or from getting medications? No 07/04 In the past 12 months, has l ack of transportation kept you from meetings, work, or from getting things needed for daily living? No 07/20/2023 Housing Stability Vital Sign Answer Kain e Recorded In the last 12 months, was t here a time when you were not able to pay the mortgage or rent on time? Yes 07/20/2023 In the last 12 months, how many places have you lived? 1 07/20/2023 In the last 12 months, was t here a time when you did not have a steady place to sleep or slept in a correction (including now)? No 07/20/2023 Sex and Gender Information Value Date Recorded Sex Assigned at Not on file Gender Identity Not on file Sexual Orientation Not on file Last Filed Vital Signs Vital Sign Reading Time Taken Comments Blood Pressure 179/77 10/14/2024 3:08 PM ELECTRICIAN UNDERGROUND Pulse 69 10/14/2024 3:08 PM ELECTRICIAN UNDERGROUND Temperature 36.8 C (98.2 F) 10/14/2024 11:39 AM ELECTRICIAN UNDERGROUND Respiratory Rate 18 10/14/2024 3:08 PM ELECTRICIAN UNDERGROUND Oxygen Saturation 98% 10/14/2024 3:08 PM ELECTRICIAN UNDERGROUND Inhaled Oxygen Concentration - - Weight 128.4 kg (283 lb 1.1 oz) 025 11:39 AM ELECTRICIAN UNDERGROUND Height 190.5 cm (6' 3 ) 10/14/2024 11:3 9 AM ELECTRICIAN UNDERGROUND Body Mass Index 35.38 10/14/2024 11:39 AM ELECTRICIAN UNDERGROUND Procedures * CT LUMBAR SPINE WO CONTRAST(Performed 10/14/2024) Performed for Fall, initial encounter * CT THORACIC SPINE WO CONTRAST(Performed 10/14/2024) Performed for Fall, initial encounter * CT CERVICAL SPINE WO CONTRAST(Performed 10/14/2024) Performed for Fall, initial encounter * URINALYSIS W/MICROSCOPIC NO CULTURE(Performed 10/14/2024) * MO CHEMODENERV 1 EXTREM 5/> MUS(Performed 10/14/2024) Performed for Muscle spasticity * MO NDL EMG GDN CONJUNCT CHEMODNRVTJ(Performed 10/14/2024) Performed for Muscle spasticity * MO CHEMODENERV 1 EXTREM 5/> MUS(Performed 07/11/2024) Performed for Muscle spasticity * MO NDL EMG GDN CONJUNCT CHEMODNRVTJ(Performed 07/11/2024) Performed for Muscle spasticity * MO CHEMODENERV 1 EXTREM 5/> MUS(Performed 04/01/2024) Performed for Muscle spasticity * MO NDL EMG GDN CONJUNCT CHEMODNRVTJ(Performed 04/01/2024) Performed for Muscle spasticity * XR CERVICAL SPINE 4 OR 5VW(Performed 03/14/2024) Performed for Cervical spinal stenosis * MRI CERVICAL SPINE WWO CONT(Performed 03/12/2024) Performed for Cervical stenosis of spine * CT CHEST W CONTRAST(Performed 03/12/2024) Performed for Lymph node enlargement * CREATININE - POCT INTERFACED(Performed 03/12/2024) * MO NDL EMG GDN CONJUNCT CHEMODNRVTJ(Performed 01/01/2024) Performed for Muscle spasticity * MO CHEMODENERV 1 EXTREM 5/> MUS(Performed 01/01/2024) Performed for Muscle spasticity * CORONARY ANGIOGRAPHY(Performed 10/26/2023) Performed for HFrEF (heart failure with reduced ejection fraction) ([facility]) * CCL LEFT HEART CATH(Performed 10/26/2023) Performed for HFrEF (heart failure with reduced ejection fraction) ([facility]) * BASIC METABOLIC PANEL (CALCIUM TOTAL)(Performed 10/24/2023) * CBC W AUTO DIFFERENTIAL(Performed 10/24/2023) * BASIC METABOLIC PANEL (CALCIUM TOTAL)(Performed 08/15/2023) Performed for Primary hypertension * GLUCOSE - POINT OF CARE(Performed 07/24/2023) * PHOSPHORUS BLOOD(Performed 07/24/2023) * MAGNESIUM BLOOD(Performed 07/24/2023) * CBC W AUTO DIFFERENTIAL(Performed 07/24/2023) * BASIC METABOLIC PANEL (CALCIUM TOTAL)(Performed 07/24/2023) * GLUCOSE - POINT OF CARE(Performed 07/23/2023) * GLUCOSE - POINT OF CARE(Performed 07/23/2023) * GLUCOSE - POINT OF CARE(Performed 07/23/2023) * GLUCOSE - POINT OF CARE(Performed 07/23/2023) * PHOSPHORUS BLOOD(Performed 07/23/2023) * MAGNESIUM BLOOD(Performed 07/23/2023) * CBC W AUTO DIFFERENTIAL(Performed 07/23/2023) * BASIC METABOLIC PANEL (CALCIUM TOTAL)(Performed 07/23/2023) * GLUCOSE - POINT OF CARE(Performed 07/22/2023) * HEPATITIS C AB SCREEN RFLX NAAT QUANT(Performed 07/22/2023) * HIV-1 HIV-2 ANTIBODY + HIV P24 AG PANEL(Performed 07/22/2023) * TSH REFLEX FREE T4(Performed 07/22/2023) * B-TYPE NATRIURETIC PEPTIDE(Performed 07/22/2023) * PHOSPHORUS BLOOD(Performed 07/22/2023) * MAGNESIUM BLOOD(Performed 07/22/2023) * CBC W AUTO DIFFERENTIAL(Performed 07/22/2023) * BASIC METABOLIC PANEL (CALCIUM TOTAL)(Performed 07/22/2023) * GLUCOSE - POINT OF CARE(Performed 07/21/2023) * GLUCOSE - POINT OF CARE(Performed 07/21/2023) * GLUCOSE - POINT OF CARE(Performed 07/21/2023) * IRON + TRANSFERRIN PANEL(Performed 07/21/2023) * FERRITIN(Performed 07/21/2023) * GLUCOSE - POINT OF CARE(Performed 07/21/2023) * PHOSPHORUS BLOOD(Performed 07/21/2023) * MAGNESIUM BLOOD(Performed 07/21/2023) * CBC W AUTO DIFFERENTIAL(Performed 07/21/2023) * BASIC METABOLIC PANEL (CALCIUM TOTAL)(Performed 07/21/2023) * GLUCOSE - POINT OF CARE(Performed 07/20/2023) * ECHO COMPLETE W CONTRAST W BUBBLE STUDY(Performed 07/20/2023) Performed for Ischemic stroke (HCC) * CARDIAC EKG ORDER(Performed 07/20/2023) * CT HEAD WO CONTRAST(Performed 07/20/2023) Performed for Right sided weakness * PHOSPHORUS BLOOD(Performed 07/20/2023) * GLUCOSE - POINT OF CARE(Performed 07/20/2023) * GLUCOSE - POINT OF CARE(Performed 07/20/2023) * PHOSPHORUS BLOOD(Performed 07/19/2023) * MAGNESIUM BLOOD(Performed 07/19/2023) * CBC W AUTO DIFFERENTIAL(Performed 07/19/2023) * BASIC METABOLIC PANEL (CALCIUM TOTAL)(Performed 07/19/2023) * MRI BRAIN WO CONTRAST(Performed 07/19/2023) Performed for Right sided weakness * GLUCOSE - POINT OF CARE(Performed 07/19/2023) * TROPONIN-I HIGH SENSITIVE(Performed 07/19/2023) * TROPONIN-I HIGH SENSITIVE(Performed 07/19/2023) * GLUCOSE - POINT OF CARE(Performed 07/19/2023) * TROPONIN-I HIGH SENSITIVE(Performed 07/19/2023) * HEMOGLOBIN A1C(Performed 07/19/2023) * BLOOD TYPE VERIFICATION(Performed 07/19/2023) * URINE MICROSCOPIC ONLY REFLEX TO CULTURE(Performed 07/19/2023) * LIPID PROFILE(Performed 07/19/2023) * TROPONIN-I HIGH SENSITIVE BASELINE + 1HR(Performed 07/19/2023) * URINALYSIS REFLEX MICROSCOPIC REFLEX CULTURE(Performed 07/19/2023) * URINE DRUG SCREEN IMMUNOASSAY(Performed 07/19/2023) * CULTURE URINE(Performed 07/19/2023) * TYPE + SCREEN PANEL(Performed 07/19/2023) * ALCOHOL ETHYL BLOOD(Performed 07/19/2023) * PT-INR [facility](Performed 07/19/2023) * COMPREHENSIVE METABOLIC PANEL(Performed 07/19/2023) * CBC W AUTO DIFFERENTIAL(Performed 07/19/2023) * PHOSPHORUS BLOOD(Performed 07/19/2023) * MAGNESIUM BLOOD(Performed 07/19/2023) * XR CHEST 1VW PORTABLE(Performed 07/19/2023) Performed for Hypoxia * EKG 12-LEAD(Performed 07/19/2023) Performed for Right sided weakness * GLUCOSE - POINT OF CARE(Performed 07/19/2023) * INR WHOLE BLOOD - POINT OF CARE (IP) STROKE(Performed 07/19/2023) * CT ANGIO BRAIN NECK STROKE(Performed 07/19/2023) Performed for Right sided weakness * CREATININE - POCT INTERFACED(Performed 07/19/2023) * CT BRAIN STROKE(Performed 07/19/2023) Performed for Right sided weakness * XR ELBOW RIGHT 3VW OR MORE(Performed 11/14/2009) Performed for Closed Unspecified Dislocation of Elbow Results * CT Lumbar Spine Wo Contrast (10/14/2024 2:28 PM ELECTRICIAN UNDERGROUND) Anatomical Region Laterality Modality Spine Computed Tomogra phy 10/14/2024 3:12 PM [employer]LECTRICIAN UNDERGROUND Impressions 10/14/2024 4:00 PM [employer]LECTRICIAN UNDERGROUND IMPRESSION: Motion degraded study, worst at the mid cervical spine. 1.No CT evidence of acute fracture in the cervical, thoracic, or lumbar spine. 2.Severe cervical spinal canal stenosis, worst at C5-6. 3.Moderate lumbar spinal canal stenosis. > Dictated by Tomi Cheney D.O. - Diagnostic Nursing Admin. I, Mk Wellington MD have personally reviewed and interpreted this examination/study. > Interpreting Provider: Mk Wellington MD on 10/14/2024 4:00 PM Narrative 10/14/2024 4:00 PM [employer] PROCEDURE: CT CERVICAL SPINE WO CONTRAST, CT THORACIC SPINE WO CONTRAST, CT LUMBAR SPINE WO CONTRAST, DATE/TIME OF EXAM: 10/14/2024 2:37 PM, LOCATION [facility] INDICATION: W19.XXXA: Fall, initial encounter EXAMINATION: 1.CT of the cervical spine without contrast 2.CT of the thoracic spine without contrast 3.CT of the lumbar spine without contrast ADDITIONAL CLINICAL INFORMATION: Ordering Provider Reason For Exam: r/o worsening stenosis, fx, misalignment (accession [id number]), r/o fx, stenosis, misalignment (accession [id number]), r/o fx, misalignment, stenosis, ddd, other (accession [id number]) Technologist Note: Additional: TECHNIQUE: CT of the head and cervical spine was performed without contrast according to standard protocol. Reformatted axial, sagittal, and coronal images of the thoracic and lumbar spine were obtained by the technologist from a concurrently performed body CT and sent to the workstation for review. CT dose reduction technique was used, including Automated Exposure Control. COMPARISON: No prior study is available for comparison at the time of this dictation. FINDINGS: Cervical spine: Motion degraded study, worst at the mid cervical spine. The alignment is normal. Vertebral bodies are normal in height without evidence of acute fracture. Other than middle atlantoaxial joint osteoarthritis, the craniocervical junction appears normal. There is moderate degenerative disc disease. Spinal canal stenosis is present at multiple levels, worst at the of C5-6 with up to severe spinal canal stenosis at this level related to asymmetric left-sided posterior disc bulge and posterior vertebral body osteophyte complex formation. Similar severe spinal canal stenosis is also present at C4-5 and C6-7. There are varying degrees of mild facet osteoarthritis. There are varying degrees of mild uncovertebral joint osteoarthritis with the same degree of neural foraminal stenosis at these levels. . Thoracic spine: The alignment is normal. Flowing anterior vertebral body osteophytes with osseous fusion from T6 through T10 with pseudoarthrosis of T10-11. Mild (less than 20%), chronic height loss of the T11 vertebral body. Vertebral bodies are otherwise normal in height without evidence of acute fracture. There is mild degenerative disc disease. No high-grade spinal canal stenosis is seen. There are varying degrees of moderate facet osteoarthritis. There are varying degrees of neural foraminal stenosis at multiple levels. No soft tissue abnormality is identified. Lumbar spine: The alignment is normal. Vertebral bodies are normal in height without evidence of acute fracture. There is diffuse disc bulge at multiple levels. Moderate spinal canal stenosis is present at L2-3, L3-4 and L4-5 related to diffuse posterior disc bulge and ligamentum flavum hypertrophy at these levels. There are varying degrees of mild to moderate facet osteoarthritis. There are varying degrees of neural foraminal stenosis at multiple levels. No soft tissue abnormality is identified. Left-sided sacralization. Procedure Note Mk Wellington MD - 10/14/2024 PROCEDURE: CT CERVICAL SPINE WO CONTRAST, CT THORACIC SPINE WOCONTRAST, CT LUMBAR SPINE WO CONTRAST, DATE/TIME OF EXAM: 10/14/2024 2:37 PM, LOCATION [facility] INDICATION: W19.XXXA: Fall, initial encounter EXAMINATION: 1.CT of the cervical spine without contrast 2.CT of the thoracic spine without contrast 3.CT of the lumbar spine without contrast ADDITIONAL CLINICAL INFORMATION: Ordering Provider Reason For Exam: r/o worsening stenosis, fx, misalignment (accession [id number]), r/o fx, stenosis, misalignment (accession [id number]), r/o fx, misalignment, stenosis, ddd, other (accession [id number]) Technologist Note: Additional: TECHNIQUE: CT of the head and cervical spine was performed withoutcontrast according to standard protocol. Reformatted axial, sagittal, and coronal images of the thoracic and lumbar spine were obtained by thetechnologist from a concurrently performed body CT and sent to the workstation for review. CT dose reduction technique was used, including AutomatedExposure Control. COMPARISON: No prior study is available for comparison at the time ofthis dictation. FINDINGS: Cervical spine: Motion degraded study, worst at the mid cervical spine. The alignment is normal. Vertebral bodies are normal in height without evidence of acute fracture. Other than middle atlantoaxial joint osteoarthritis, the craniocervical junction appears normal. There is moderate degenerative disc disease. Spinal canal stenosis is present at multiple levels, worst at the of C5-6 with up to severe spinal canal stenosis at this level related to asymmetric left-sided posterior disc bulge and posterior vertebral body osteophyte complex formation. Similar severe spinal canal stenosis is also present at C4-5 and C6-7. There are varying degrees of mild facet osteoarthritis. There are varying degreesof mild uncovertebral joint osteoarthritis with the same degree of neural foraminal stenosis at these levels. . Thoracic spine: The alignment is normal. Flowing anterior vertebral body osteophyteswith osseous fusion from T6 through T10 with pseudoarthrosis of T10-11. Mild (less than 20%), chronic height loss of the T11 vertebral body.Vertebral bodies are otherwise normal in height without evidence of acutefracture. There is mild degenerative disc disease. No high-grade spinal canal stenosis is seen. There are varying degrees of moderate facet osteoarthritis. There are varying degrees of neural foraminal stenosisat multiple levels. No soft tissue abnormality is identified. Lumbar spine: The alignment is normal. Vertebral bodies are normal in height without evidence of acute fracture. There is diffuse disc bulge at multiplelevels. Moderate spinal canal stenosis is present at L2-3, L3-4 and L4-5 relatedto diffuse posterior disc bulge and ligamentum flavum hypertrophy at these levels. There are varying degrees of mild to moderate facet osteoarthritis. There are varying degrees of neural foraminal stenosisat multiple levels. No soft tissue abnormality is identified. Left-sided sacralization. IMPRESSION: Motion degraded study, worst at the mid cervical spine. 1.No CT evidence of acute fracture in the cervical, thoracic, or lumbar spine. 2.Severe cervical spinal canal stenosis, worst at C5-6. 3.Moderate lumbar spinal canal stenosis. > Dictated by Tomi Cheney D.O. - Diagnostic Nursing Admin. Mk French MD have personally reviewed and interpreted this examination/study. > Interpreting Provider: Mk Wellington MD on 10/14/2024 4:00 PM Domonique Matthews TRAINING INSTRUCTOR-ASSEMBLER [facility] CT ORDERABLE S * CT Thoracic Spine Wo Contrast (10/14/2024 2:28 PM ELECTRICIAN UNDERGROUND) Anatomical Region Laterality Modality Spine Computed Tomogra phy 10/14/2024 3:12 PM [employer]LECTRICIAN UNDERGROUND Impressions 10/14/2024 4:00 PM [employer]LECTRICIAN UNDERGROUND IMPRESSION: Motion degraded study, worst at the mid cervical spine. 1.No CT evidence of acute fracture in the cervical, thoracic, or lumbar spine. 2.Severe cervical spinal canal stenosis, worst at C5-6. 3.Moderate lumbar spinal canal stenosis. > Dictated by Tomi Cheney D.O. - Diagnostic Nursing Admin. Mk French MD have personally reviewed and interpreted this examination/study. > Interpreting Provider: Mk Wellington MD on 10/14/2024 4:00 PM Narrative 10/14/2024 4:00 PM [employer] PROCEDURE: CT CERVICAL SPINE WO CONTRAST, CT THORACIC SPINE WO CONTRAST, CT LUMBAR SPINE WO CONTRAST, DATE/TIME OF EXAM: 10/14/2024 2:37 PM, LOCATION [facility] INDICATION: W19.XXXA: Fall, initial encounter EXAMINATION: 1.CT of the cervical spine without contrast 2.CT of the thoracic spine without contrast 3.CT of the lumbar spine without contrast ADDITIONAL CLINICAL INFORMATION: Ordering Provider Reason For Exam: r/o worsening stenosis, fx, misalignment (accession [id number]), r/o fx, stenosis, misalignment (accession [id number]), r/o fx, misalignment, stenosis, ddd, other (accession [id number]) Technologist Note: Additional: TECHNIQUE: CT of the head and cervical spine was performed without contrast according to standard protocol. Reformatted axial, sagittal, and coronal images of the thoracic and lumbar spine were obtained by the technologist from a concurrently performed body CT and sent to the workstation for review. CT dose reduction technique was used, including Automated Exposure Control. COMPARISON: No prior study is available for comparison at the time of this dictation. FINDINGS: Cervical spine: Motion degraded study, worst at the mid cervical spine. The alignment is normal. Vertebral bodies are normal in height without evidence of acute fracture. Other than middle atlantoaxial joint osteoarthritis, the craniocervical junction appears normal. There is moderate degenerative disc disease. Spinal canal stenosis is present at multiple levels, worst at the of C5-6 with up to severe spinal canal stenosis at this level related to asymmetric left-sided posterior disc bulge and posterior vertebral body osteophyte complex formation. Similar severe spinal canal stenosis is also present at C4-5 and C6-7. There are varying degrees of mild facet osteoarthritis. There are varying degrees of mild uncovertebral joint osteoarthritis with the same degree of neural foraminal stenosis at these levels. . Thoracic spine: The alignment is normal. Flowing anterior vertebral body osteophytes with osseous fusion from T6 through T10 with pseudoarthrosis of T10-11. Mild (less than 20%), chronic height loss of the T11 vertebral body. Vertebral bodies are otherwise normal in height without evidence of acute fracture. There is mild degenerative disc disease. No high-grade spinal canal stenosis is seen. There are varying degrees of moderate facet osteoarthritis. There are varying degrees of neural foraminal stenosis at multiple levels. No soft tissue abnormality is identified. Lumbar spine: The alignment is normal. Vertebral bodies are normal in height without evidence of acute fracture. There is diffuse disc bulge at multiple levels. Moderate spinal canal stenosis is present at L2-3, L3-4 and L4-5 related to diffuse posterior disc bulge and ligamentum flavum hypertrophy at these levels. There are varying degrees of mild to moderate facet osteoarthritis. There are varying degrees of neural foraminal stenosis at multiple levels. No soft tissue abnormality is identified. Left-sided sacralization. Procedure Note Mk Wellington MD - 10/14/2024 PROCEDURE: CT CERVICAL SPINE WO CONTRAST, CT THORACIC SPINE WOCONTRAST, CT LUMBAR SPINE WO CONTRAST, DATE/TIME OF EXAM: 10/14/2024 2:37 PM, LOCATION [facility] INDICATION: W19.XXXA: Fall, initial encounter EXAMINATION: 1.CT of the cervical spine without contrast 2.CT of the thoracic spine without contrast 3.CT of the lumbar spine without contrast ADDITIONAL CLINICAL INFORMATION: Ordering Provider Reason For Exam: r/o worsening stenosis, fx, misalignment (accession [id number]), r/o fx, stenosis, misalignment (accession [id number]), r/o fx, misalignment, stenosis, ddd, other (accession [id number]) Technologist Note: Additional: TECHNIQUE: CT of the head and cervical spine was performed withoutcontrast according to standard protocol. Reformatted axial, sagittal, and coronal images of the thoracic and lumbar spine were obtained by thetechnologist from a concurrently performed body CT and sent to the workstation for review. CT dose reduction technique was used, including AutomatedExposure Control. COMPARISON: No prior study is available for comparison at the time ofthis dictation. FINDINGS: Cervical spine: Motion degraded study, worst at the mid cervical spine. The alignment is normal. Vertebral bodies are normal in height without evidence of acute fracture. Other than middle atlantoaxial joint osteoarthritis, the craniocervical junction appears normal. There is moderate degenerative disc disease. Spinal canal stenosis is present at multiple levels, worst at the of C5-6 with up to severe spinal canal stenosis at this level related to asymmetric left-sided posterior disc bulge and posterior vertebral body osteophyte complex formation. Similar severe spinal canal stenosis is also present at C4-5 and C6-7. There are varying degrees of mild facet osteoarthritis. There are varying degreesof mild uncovertebral joint osteoarthritis with the same degree of neural foraminal stenosis at these levels. . Thoracic spine: The alignment is normal. Flowing anterior vertebral body osteophyteswith osseous fusion from T6 through T10 with pseudoarthrosis of T10-11. Mild (less than 20%), chronic height loss of the T11 vertebral body.Vertebral bodies are otherwise normal in height without evidence of acutefracture. There is mild degenerative disc disease. No high-grade spinal canal stenosis is seen. There are varying degrees of moderate facet osteoarthritis. There are varying degrees of neural foraminal stenosisat multiple levels. No soft tissue abnormality is identified. Lumbar spine: The alignment is normal. Vertebral bodies are normal in height without evidence of acute fracture. There is diffuse disc bulge at multiplelevels. Moderate spinal canal stenosis is present at L2-3, L3-4 and L4-5 relatedto diffuse posterior disc bulge and ligamentum flavum hypertrophy at these levels. There are varying degrees of mild to moderate facet osteoarthritis. There are varying degrees of neural foraminal stenosisat multiple levels. No soft tissue abnormality is identified. Left-sided sacralization. IMPRESSION: Motion degraded study, worst at the mid cervical spine. 1.No CT evidence of acute fracture in the cervical, thoracic, or lumbar spine. 2.Severe cervical spinal canal stenosis, worst at C5-6. 3.Moderate lumbar spinal canal stenosis. > Dictated by Tomi Cheney D.O. - Diagnostic Nursing Admin. I, Mk Wellington MD have personally reviewed and interpreted this examination/study. > Interpreting Provider: Mk Wellington MD on 10/14/2024 4:00 PM Domonique Matthews TRAINING INSTRUCTOR-ASSEMBLER [facility] CT ORDERABLE S * CT Cervical Spine Wo Contrast (10/14/2024 2:28 PM [employer]ER[employer]) Anatomical Region Laterality Modality Spine Computed Tomogra phy 10/14/2024 3:12 PM [employer] Impressions 10/14/2024 4:00 PM [employer] IMPRESSION: Motion degraded study, worst at the mid cervical spine. 1.No CT evidence of acute fracture in the cervical, thoracic, or lumbar spine. 2.Severe cervical spinal canal stenosis, worst at C5-6. 3.Moderate lumbar spinal canal stenosis. > Dictated by Tomi Cheney D.O. - Diagnostic Nursing Admin. I, Mk Wellington MD have personally reviewed and interpreted this examination/study. > Interpreting Provider: Mk Wellington MD on 10/14/2024 4:00 PM Narrative 10/14/2024 4:00 PM [employer] PROCEDURE: CT CERVICAL SPINE WO CONTRAST, CT THORACIC SPINE WO CONTRAST, CT LUMBAR SPINE WO CONTRAST, DATE/TIME OF EXAM: 10/14/2024 2:37 PM, LOCATION [facility] INDICATION: W19.XXXA: Fall, initial encounter EXAMINATION: 1.CT of the cervical spine without contrast 2.CT of the thoracic spine without contrast 3.CT of the lumbar spine without contrast ADDITIONAL CLINICAL INFORMATION: Ordering Provider Reason For Exam: r/o worsening stenosis, fx, misalignment (accession [id number]), r/o fx, stenosis, misalignment (accession [id number]), r/o fx, misalignment, stenosis, ddd, other (accession [id number]) Technologist Note: Additional: TECHNIQUE: CT of the head and cervical spine was performed without contrast according to standard protocol. Reformatted axial, sagittal, and coronal images of the thoracic and lumbar spine were obtained by the technologist from a concurrently performed body CT and sent to the workstation for review. CT dose reduction technique was used, including Automated Exposure Control. COMPARISON: No prior study is available for comparison at the time of this dictation. FINDINGS: Cervical spine: Motion degraded study, worst at the mid cervical spine. The alignment is normal. Vertebral bodies are normal in height without evidence of acute fracture. Other than middle atlantoaxial joint osteoarthritis, the craniocervical junction appears normal. There is moderate degenerative disc disease. Spinal canal stenosis is present at multiple levels, worst at the of C5-6 with up to severe spinal canal stenosis at this level related to asymmetric left-sided posterior disc bulge and posterior vertebral body osteophyte complex formation. Similar severe spinal canal stenosis is also present at C4-5 and C6-7. There are varying degrees of mild facet osteoarthritis. There are varying degrees of mild uncovertebral joint osteoarthritis with the same degree of neural foraminal stenosis at these levels. . Thoracic spine: The alignment is normal. Flowing anterior vertebral body osteophytes with osseous fusion from T6 through T10 with pseudoarthrosis of T10-11. Mild (less than 20%), chronic height loss of the T11 vertebral body. Vertebral bodies are otherwise normal in height without evidence of acute fracture. There is mild degenerative disc disease. No high-grade spinal canal stenosis is seen. There are varying degrees of moderate facet osteoarthritis. There are varying degrees of neural foraminal stenosis at multiple levels. No soft tissue abnormality is identified. Lumbar spine: The alignment is normal. Vertebral bodies are normal in height without evidence of acute fracture. There is diffuse disc bulge at multiple levels. Moderate spinal canal stenosis is present at L2-3, L3-4 and L4-5 related to diffuse posterior disc bulge and ligamentum flavum hypertrophy at these levels. There are varying degrees of mild to moderate facet osteoarthritis. There are varying degrees of neural foraminal stenosis at multiple levels. No soft tissue abnormality is identified. Left-sided sacralization. Procedure Note Mk Wellington MD - 10/14/2024 PROCEDURE: CT CERVICAL SPINE WO CONTRAST, CT THORACIC SPINE WOCONTRAST, CT LUMBAR SPINE WO CONTRAST, DATE/TIME OF EXAM: 10/14/2024 2:37 PM, LOCATION [facility] INDICATION: W19.XXXA: Fall, initial encounter EXAMINATION: 1.CT of the cervical spine without contrast 2.CT of the thoracic spine without contrast 3.CT of the lumbar spine without contrast ADDITIONAL CLINICAL INFORMATION: Ordering Provider Reason For Exam: r/o worsening stenosis, fx, misalignment (accession [id number]), r/o fx, stenosis, misalignment (accession [id number]), r/o fx, misalignment, stenosis, ddd, other (accession [id number]) Technologist Note: Additional: TECHNIQUE: CT of the head and cervical spine was performed withoutcontrast according to standard protocol. Reformatted axial, sagittal, and coronal images of the thoracic and lumbar spine were obtained by thetechnologist from a concurrently performed body CT and sent to the workstation for review. CT dose reduction technique was used, including AutomatedExposure Control. COMPARISON: No prior study is available for comparison at the time ofthis dictation. FINDINGS: Cervical spine: Motion degraded study, worst at the mid cervical spine. The alignment is normal. Vertebral bodies are normal in height without evidence of acute fracture. Other than middle atlantoaxial joint osteoarthritis, the craniocervical junction appears normal. There is moderate degenerative disc disease. Spinal canal stenosis is present at multiple levels, worst at the of C5-6 with up to severe spinal canal stenosis at this level related to asymmetric left-sided posterior disc bulge and posterior vertebral body osteophyte complex formation. Similar severe spinal canal stenosis is also present at C4-5 and C6-7. There are varying degrees of mild facet osteoarthritis. There are varying degreesof mild uncovertebral joint osteoarthritis with the same degree of neural foraminal stenosis at these levels. . Thoracic spine: The alignment is normal. Flowing anterior vertebral body osteophyteswith osseous fusion from T6 through T10 with pseudoarthrosis of T10-11. Mild (less than 20%), chronic height loss of the T11 vertebral body.Vertebral bodies are otherwise normal in height without evidence of acutefracture. There is mild degenerative disc disease. No high-grade spinal canal stenosis is seen. There are varying degrees of moderate facet osteoarthritis. There are varying degrees of neural foraminal stenosisat multiple levels. No soft tissue abnormality is identified. Lumbar spine: The alignment is normal. Vertebral bodies are normal in height without evidence of acute fracture. There is diffuse disc bulge at multiplelevels. Moderate spinal canal stenosis is present at L2-3, L3-4 and L4-5 relatedto diffuse posterior disc bulge and ligamentum flavum hypertrophy at these levels. There are varying degrees of mild to moderate facet osteoarthritis. There are varying degrees of neural foraminal stenosisat multiple levels. No soft tissue abnormality is identified. Left-sided sacralization. IMPRESSION: Motion degraded study, worst at the mid cervical spine. 1.No CT evidence of acute fracture in the cervical, thoracic, or lumbar spine. 2.Severe cervical spinal canal stenosis, worst at C5-6. 3.Moderate lumbar spinal canal stenosis. > Dictated by Tomi Cheney D.O. - Diagnostic Nursing Admin. I, Mk Wellington MD have personally reviewed and interpreted this examination/study. > Interpreting Provider: Mk Wellington MD on 10/14/2024 4:00 PM Domonique Matthews TRAINING INSTRUCTOR-ASSEMBLER [facility] CT ORDERABLE S * (ABNORMAL) URINALYSIS W/MICROSCOPIC NO CULTURE (10/14/2024 1:50 PM [employer] UNDER[employer]) Color UA Yellow Straw, Yellow 10/14/2024 2:17 PM [facility] Clarity UA Clear Clear 10/14/2024 2:17 PM [facility] Specific [place] UA 1.011 1.005 - 1.030 10/14/2024 2:17 PM [facility] pH UA 6.0 5.0 - 8.0 pH 10/14/2024 2:17 PM [facility] Protein UA Negative Negative 10/14/2024 2:17 PM [facility] Glucose UA Negative Negative 10/14/2024 2:17 PM [facility] Ketone UA Negative Negative 10/14/2024 2:17 PM [facility] Bilirubin UA Negative Negative 10/14/2024 2:17 PM [facility] Blood UA Negative Negative 10/14/2024 2:17 PM [facility] Nitrite UA Negative Negative 10/14/2024 2:17 PM [facility] Leukocyte Esterase Trace(A) Negative 10/14/2024 2:17 PM [facility] Urobilinogen UA Negative Negative mg/dL 10/14/2024 2:17 PM [facility] RBC UA 3-5 None Seen, 0-2, 3-5 /HPF 10/14/2024 2:17 PM [facility] WBC UA 0-5 None Seen, 0-5 /HPF 10/14/2024 2:17 PM [facility] Squamous Epithelial Cells UA None Seen None Seen, 0-2, 3-5 /HPF 10/14/2024 2:17 PM [facility] Urine URINE SPECIMEN OBTAINED BY CLEAN CATCH PROCEDURE / Unknown Collection / Unknown 10/14/2024 1:50 PM [employer] 10/14/2024 1:59 PM [facility] - 10/14/2024 2:17 PM [employer] UNDER[employer] Emre Moore MD LAB - URINALYSIS ORD ERABLES [facility] [address] [place] [id number], [facility] [phone] * MO NDL EMG GDN CONJUNCT CHEMODNRVTJ, MO CHEMODENERV 1 EXTREM 5/> MUS (10/14/2024 12:18 PM [employer] UNDER[employer]) Narrative Sukh Michaud MD - 10/14/2024 12:18 PM [employer] Sukh Michaud MD 10/14/2024 12:19 PM See procedure note for documentation. Sukh Michaud MD PROCEDURE/MINOR SURG ICAL ORDERABLES * MO NDL EMG GDN CONJUNCT CHEMODNRVTJ, MO CHEMODENERV 1 EXTREM 5/> MUS (07/11/2024 3:33 PM [employer] UNDER[employer]) Narrative Sukh Michaud MD - 07/11/2024 3:33 PM [employer] UNDER[employer] Sukh Michaud MD 07/11/2024 3:34 PM See procedure note for documentation. Sukh Michaud MD PROCEDURE/MINOR SURG ICAL ORDERABLES * MO NDL EMG GDN CONJUNCT CHEMODNRVTJ, MO CHEMODENERV 1 EXTREM 5/> MUS (04/01/2024 10:59 AM CDT) Narrative Sukh Michaud MD - 04/01/2024 10:59 AM CDT Sukh Michaud MD 04/01/2024 11:00 AM See procedure note for documentation. Sukh Michaud MD PROCEDURE/MINOR SURG ICAL ORDERABLES * XR CERVICAL SPINE 4 OR 5VW (03/14/2024 9:47 AM CDT) Anatomical Region Laterality Modality Spine Radiographic Safia ging 03/14/2024 4:54 PM CDT Impressions 03/14/2024 5:00 PM CDT IMPRESSION: Multilevel degenerative changes. No instability with flexion or extension. > Interpreting Provider: Maryam Vergara MD on 03/14/2024 5:00 PM Narrative 03/14/2024 5:00 PM CDT PROCEDURE: XR CERVICAL SPINE 4 OR 5VW DATE/TIME OF EXAM: 03/14/2024 9:47 AM CLINICAL INFORMATION: None relevant/not provided if blank. Indication: M48.02: Cervical spinal stenosis Additional History: COMPARISON: None. FINDINGS: There is incomplete visualization of C6 in lateral projection and nonvisualization of C7 in lateral projection. Alignment is normal. Normal alignment is maintained with flexion and extension. Predental interval is normal. There is no fracture or compression deformity. Disc spaces are preserved. There are endplate osteophytes and calcification of anterior longitudinal ligament. There is mild facet arthropathy. Prevertebral soft tissues are normal. Procedure Note Maryam Vergara MD - 03/14/2024 PROCEDURE: XR CERVICAL SPINE 4 OR 5VW DATE/TIME OF EXAM: 03/14/2024 9:47 AM CLINICAL INFORMATION: None relevant/not provided if blank. Indication: M48.02: Cervical spinal stenosis Additional History: COMPARISON: None. FINDINGS: There is incomplete visualization of C6 in lateral projection and nonvisualization of C7 in lateral projection. Alignment is normal. Normal alignment is maintained with flexion and extension. Predental interval is normal. There is no fracture or compression deformity. Disc spaces are preserved. There are endplate osteophytes and calcification of anterior longitudinal ligament. Thereis mild facet arthropathy. Prevertebral soft tissues are normal. IMPRESSION: Multilevel degenerative changes. No instability with flexion or extension. > Interpreting Provider: Maryam Vergara MD on 03/14/2024 5:00 PM Edd Sheffield MD DIAGNOSTIC IMAGING O RDERABLES * MRI CERVICAL SPINE WWO CONT (03/12/2024 3:59 PM CDT) Anatomical Region Laterality Modality Spine Magnetic Resonan ce 03/19/2024 11:2 8 AM CDT Impressions 03/19/2024 11:36 AM CDT IMPRESSION: 1. Mild to moderate multilevel degenerative disc and joint disease in the cervical spine, together with congenital shortening of pedicles, causing up to severe central canal and moderate neuroforamina stenosis as detailed above, most pronounced at C5-C6. > Interpreting Provider: Magnolia Mei MD on 03/19/2024 11:36 AM Narrative 03/19/2024 11:36 AM CDT PROCEDURE: MRI CERVICAL SPINE WWO CONT, DATE/TIME OF EXAM: 03/12/2024 4:11 PM, LOCATION [facility] INDICATION: M48.02: Cervical stenosis of spine ADDITIONAL CLINICAL INFORMATION: Ordering Provider Reason For Exam: Technologist Note: Additional: EXAMINATION: Magnetic resonance imaging (MRI) of the cervical spine without and with contrast TECHNIQUE: MRI of the cervical spine was performed prior to and following the uneventful administration of 10 mL Gadavist intravenous contrast according to standard protocol. FINDINGS: The alignment is normal. Vertebral bodies are normal in height without evidence of compression fractures. Other than moderate degenerative endplate changes at multiple levels, the bone marrow signal is normal. Other than moderate middle atlantoaxial joint osteoarthritis, the craniocervical junction appears normal. The spinal cord appears normal, although evaluation of the spinal cord is somewhat degraded by motion artifacts. No abnormal enhancement is identified. Multilevel degenerative disc and joint disease in the cervical spine as detailed below. 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 No soft tissue abnormality is identified. Normal flow voids are identified in the vertebral arteries. C2-3: There is no disc bulge. There is no central canal stenosis. There is mild bilateral facet osteoarthritis. There is mild bilateral uncovertebral joint osteoarthritis. There is no neural foraminal stenosis. C3-4: There is mild disc bulge. There is mild central canal stenosis. There is mild bilateral facet osteoarthritis. There is mild bilateral uncovertebral joint osteoarthritis. There is no neural foraminal stenosis. C4-5: There is mild disc bulge. There is mild to moderate central canal stenosis. There is mild bilateral facet osteoarthritis. There is mild bilateral uncovertebral joint osteoarthritis. There is no neural foraminal stenosis. C5-6: There is mild disc bulge and a broad-based left paracentral disc protrusion. There is severe central canal stenosis. There is moderate right and mild left facet osteoarthritis. There is mild right and moderate left uncovertebral joint osteoarthritis. There is mild right and moderate left neural foraminal stenosis. C6-7: There is mild disc bulge. There is moderate central canal stenosis. There is mild bilateral facet osteoarthritis. There is moderate bilateral uncovertebral joint osteoarthritis. There is mild left neural foraminal stenosis. C7-T1: There is no disc bulge. There is no central canal stenosis. There is no facet osteoarthritis. There is no uncovertebral joint osteoarthritis. There is no neural foraminal stenosis. Procedure Note Magnolia Mei MD - 03/19/2024 PROCEDURE: MRI CERVICAL SPINE WWO CONT, DATE/TIME OF EXAM: :11 PM, LOCATION [facility] INDICATION: M48.02: Cervical stenosis of spine ADDITIONAL CLINICAL INFORMATION: Ordering Provider Reason For Exam: Technologist Note: Additional: EXAMINATION: Magnetic resonance imaging (MRI) of the cervical spinewithout and with contrast TECHNIQUE: MRI of the cervical spine was performed prior to andfollowing the uneventful administration of 10 mL Gadavist intravenous contrast according to standard protocol. FINDINGS: The alignment is normal. Vertebral bodies are normal in height without evidence of compression fractures. Other than moderate degenerative endplate changes at multiple levels, the bone marrow signal is normal. Other than moderate middle atlantoaxial joint osteoarthritis, the craniocervical junction appears normal. The spinal cord appears normal, although evaluation of the spinal cord is somewhat degraded by motion artifacts. No abnormal enhancement is identified. Multileveldegenerative disc and joint disease in the cervical spine as detailed below.Congenital shortening of the pedicles contributes to cause central canal stenosis. No soft tissue abnormality is identified. Normal flow voids areidentified in the vertebral arteries. C2-3: There is no disc bulge. There is no central canal stenosis. Thereis mild bilateral facet osteoarthritis. There is mild bilateraluncovertebral joint osteoarthritis. There is no neural foraminal stenosis. C3-4: There is mild disc bulge. There is mild central canal stenosis.There is mild bilateral facet osteoarthritis. There is mild bilateral uncovertebral joint osteoarthritis. There is no neural foraminalstenosis. C4-5: There is mild disc bulge. There is mild to moderate central canal stenosis. There is mild bilateral facet osteoarthritis. There is mild bilateral uncovertebral joint osteoarthritis. There is no neuralforaminal stenosis. C5-6: There is mild disc bulge and a broad-based left paracentral disc protrusion. There is severe central canal stenosis. There is moderateright and mild left facet osteoarthritis. There is mild right and moderateleft uncovertebral joint osteoarthritis. There is mild right and moderateleft neural foraminal stenosis. C6-7: There is mild disc bulge. There is moderate central canalstenosis. There is mild bilateral facet osteoarthritis. There is moderatebilateral uncovertebral joint osteoarthritis. There is mild left neural foraminal stenosis. C7-T1: There is no disc bulge. There is no central canal stenosis. Thereis no facet osteoarthritis. There is no uncovertebral joint osteoarthritis. There is no neural foraminal stenosis. IMPRESSION: 1. Mild to moderate multilevel degenerative disc and joint disease inthe cervical spine, together with congenital shortening of pedicles, causingup to severe central canal and moderate neuroforamina stenosis as detailed above, most pronounced at C5-C6. > Interpreting Provider: Magnolia Mei MD on 03/19/2024 11:36 AM Sue Maloneyagapito THORNTON-Marco A MR ORDERABLES * CT CHEST W CONTRAST (03/12/2024 3:29 PM CDT) Anatomical Region Laterality Modality Chest Computed Tomogra phy 03/13/2024 8:45 AM CDT Impressions 03/13/2024 12:15 PM CDT Impression: 1.Unchanged enlarged mediastinal lymph nodes. > Dictated by Rohith Montoya MD, MD (residential green building designer). I, Jed Mcdowell MD have personally reviewed and interpreted this examination/study. > Interpreting Provider: Jed Mcdowell MD on 03/13/2024 12:15 PM Narrative 03/13/2024 12:15 PM CDT PROCEDURE: CT CHEST W CONTRAST, DATE/TIME OF EXAM: 03/12/2024 3:31 PM, LOCATION [facility] INDICATION: R59.9: Lymph node enlargement COMPARISON: CT angio brain neck stroke 07/19/2023 TECHNIQUE: CT of the chest was performed following the uneventful administration of 100 mL of Isovue 370 intravenous contrast according to standard protocol. Findings: Lower Neck and Axillae: Thyroid gland is normal in attenuation. No axillary or supraclavicular lymphadenopathy. Heart and Pericardium: The cardiac chambers are normal in size. No pericardial fluid or thickening is present. Mediastinum and Stephanie: There is an enlarged right paratracheal lymph node measuring 1.4 cm short axis (series 3 image 41), unchanged compared to prior CT neck 07/19/2023. There is an enlarged subcarinal node measuring approximately 15 x 15 mm (series 3 image 53). Additional subcentimeter periaortic node measuring approximately 8 x 15 mm (series 3 image 44) Lungs: No pulmonary parenchymal or airway process is present. No suspicious pulmonary nodules are identified. No pleural fluid or pneumothorax is present. Minimal biapical emphysematous changes. Thoracic Vasculature: No vascular abnormality is present. Bones and Chest Wall: Bone windows demonstrate no suspicious lytic or blastic lesions. Degenerative changes seen throughout the thoracic spine. There is flowing anterior osteophyte sites over contiguous thoracic vertebrae suggestive of diffuse idiopathic skeletal hyperostosis. Upper Abdomen: The visible portions of the upper abdominal organs are normal. Gallbladder is absent. Procedure Note Jed Mcdowell MD - 03/13/2024 PROCEDURE: CT CHEST W CONTRAST, DATE/TIME OF EXAM: 03/12/2024 3:31 PM, LOCATION [facility] INDICATION: R59.9: Lymph node enlargement COMPARISON: CT angio brain neck stroke 07/19/2023 TECHNIQUE: CT of the chest was performed following the uneventful administration of 100 mL of Isovue 370 intravenous contrast according to standard protocol. Findings: Lower Neck and Axillae: Thyroid gland is normal in attenuation. No axillary or supraclavicular lymphadenopathy. Heart and Pericardium: The cardiac chambers are normal in size. No pericardial fluid orthickening is present. Mediastinum and Stephanie: There is an enlarged right paratracheal lymph node measuring 1.4 cmshort axis (series 3 image 41), unchanged compared to prior CT neck07/19/2023. There is an enlarged subcarinal node measuring approximately 15 x 15 mm (series 3 image 53). Additional subcentimeter periaortic node measuring approximately 8 x 15 mm (series 3 image 44) Lungs: No pulmonary parenchymal or airway process is present. No suspicious pulmonary nodules are identified. No pleural fluid or pneumothorax is present. Minimal biapical emphysematous changes. Thoracic Vasculature: No vascular abnormality is present. Bones and Chest Wall: Bone windows demonstrate no suspicious lytic or blastic lesions. Degenerative changes seen throughout the thoracic spine. There isflowing anterior osteophyte sites over contiguous thoracic vertebrae suggestiveof diffuse idiopathic skeletal hyperostosis. Upper Abdomen: The visible portions of the upper abdominal organs are normal.Gallbladder is absent. Impression: 1.Unchanged enlarged mediastinal lymph nodes. > Dictated by Rohith Montoya MD, MD (residential green building designer). I, Jed Mcdowell MD have personally reviewed and interpreted this examination/study. > Interpreting Provider: Jed Mcdowell MD on 03/13/2024 12:15 PM Sue Garcia PA-C CT ORDERABLES * (ABNORMAL) CREATININE - POCT INTERFACED (03/12/2024 3:17 PM CDT) Only the most recent of2 resultswithin the time period is included. Creatinine POCT 1.00 0.30 - 1.30 mg/dL 03/12/2024 3:23 PM CDT [facility] eGFR 89(L) >=90 mL/min/1.7 3 m2 03/12/2024 3:23 PM CDT [facility] Blood BLOOD SPECIMEN / Unknown 03/12/2024 3:17 PM CDT 03/12/2024 3:23 PM CDT Sue Garcia PA-C LAB - POINT OF CA RE ORDERABLES [facility] [address] [place] [address], [facility] [phone] * [place] CHEMODENERV 1 EXTREM 5/> MUS, [place] NDL EMG GDN CONJUNCT CHEMODNRVTJ (01/01/2024 10:27 AM CDT) Narrative Sukh Michaud MD - 01/01/2024 10:27 AM CDT Sukh Michaud MD 01/01/2024 10:27 AM See procedure note for documentation. Sukh Michaud MD PROCEDURE/MINOR SURG ICAL ORDERABLES * CCL LEFT HEART CATH, CORONARY ANGIOGRAPHY (10/26/2023 12:36 PM ELECTRICIAN UNDERGROUND) Anatomical Region Laterality Modality X-Ray Angiograph y Narrative 10/26/2023 1:17 PM ELECTRICIAN UNDERGROUND Nonobstructive coronary arteries LVEDP: 13 mmHg. Right radial artery access; hemostasis by TR band. Reason for Procedure 53 year old male with a PMH significant for hypertension, dyslipidemia, CVA 07/2023 and type 2 diabetes mellitus. He had an echo 07/2023 with ejection fraction 38%. Likely due to ETOH and untreated hypertension. He presents today for Left Heart Catheterization for ischemic evaluation of cardiomyopathy. Procedure Details Estimated Blood Loss: 10 mL Coronary Findings Diagnostic Dominance: Right Left Main: The vessel was visualized by selective angiography and is moderate in size. The vessel exhibits minimal luminal irregularities. Left Anterior Descending: The vessel was visualized by selective angiography and is moderate in size. The vessel exhibits minimal luminal irregularities. Ramus Intermedius: The vessel was visualized by selective angiography and is moderate in size. The vessel exhibits minimal luminal irregularities. Left Circumflex: The vessel was visualized by selective angiography and is moderate in size. The vessel exhibits minimal luminal irregularities. Right Coronary Artery: The vessel was visualized by selective angiography and is moderate in size. The vessel exhibits minimal luminal irregularities. Intervention No interventions have been documented. Left Ventricle LVEDP: 13 mmHg. Recommendations - Follow maximal guideline directed medical therapy for dilated cardiomyopathy. - Consult cardiac rehab. - Plan for lifestyle intervention with diet, exercise, and weight loss. Janessa THORNTON CV CARDIAC CATH CUPI D PROCS * CBC WITH DIFFERENTIAL (10/24/2023 8:00 AM ELECTRICIAN UNDERGROUND) Only the most recent of7 resultswithin the time period is included. WBC 6.9 3.4 - 10.8 x10E3/uL [facility] INSURANCE BILL RBC 4.93 4.14 - 5.80 x10E6/uL [facility] INSURANCE BILL Hemoglobin 13.8 13.0 - 17.7 g/dL [facility] INSURANCE BILL Hematocrit 42.7 37.5 - 51.0 % [facility] INSURANCE BILL MCV 87 79 - 97 fL [facility] INSURANCE BILL MCH 28.0 26.6 - 33.0 pg [facility] INSURANCE BILL MCHC 32.3 31.5 - 35.7 g/dL [facility] INSURANCE BILL RDW 12.3 11.6 - 15.4 % [facility] INSURANCE BILL Platelet Count 206 150 - 450 x10E3/uL [facility] INSURANCE BILL Granulocytes % 69 Not Estab. % [facility] INSURANCE BILL Lymphocytes % 24 Not Estab. % [facility] INSURANCE BILL Monocytes % 4 Not Estab. % [facility] INSURANCE BILL Eosinophils % 3 Not Estab. % [facility] INSURANCE BILL Basophils % 0 Not Estab. % [facility] INSURANCE BILL Immature Cells NOT AVAILABLE [facility] INSURANCE BILL Comment:Result cannot be obt ained for this observation. Granulocytes Absolute 4.6 1.4 - 7.0 x10E3/uL [facility] INSURANCE BILL Lymphocytes Absolute 1.7 0.7 - 3.1 x10E3/uL [facility] INSURANCE BILL Monocytes Absolute 0.3 0.1 - 0.9 x10E3/uL [facility] INSURANCE BILL Eosinophils Absolute 0.2 0.0 - 0.4 x10E3/uL [facility] INSURANCE BILL Basophils Absolute 0.0 0.0 - 0.2 x10E3/uL [facility] INSURANCE BILL Immature Granulocytes 0 Not Estab. % [facility] INSURANCE BILL Immature Granulocytes Absolute 0.0 0.0 - 0.1 x10E3/uL [facility] INSURANCE BILL nRBC NOT AVAILABLE [facility] INSURANCE BILL Comment:Result cannot be obt ained for this observation. Comment Hematology NOT AVAILABLE [facility] INSURANCE BILL Comment: FASTING Result cannot be obtained for this observation. 10/24/2023 8:00 AM ELECTRICIAN UNDERGROUND 10/24/2023 Narrative [facility] INSURANCE BILL - 10/25/2023 3:08 AM ELECTRICIAN UNDERGROUND A courtesy copy of this report has been sent to [phone] Resulting Agency Comment Lab Testing performed at: [facility] [address] [facility] [id number] Janessa THORNTON LAB - HEMATOLOGY ORD ERABLES [facility] INSURANCE BILL [address] [place] [address] * (ABNORMAL) BASIC METABOLIC PANEL (CALCIUM TOTAL) (10/24/2023 8:00 AM ELECTRICIAN UNDERGROUND) Only the most recent of7 resultswithin the time period is included. Glucose 135(H) 70 - 99 mg/dL [facility] INSURANCE BILL BUN 13 6 - 24 mg/dL [facility] INSURANCE BILL Creatinine 0.94 0.76 - 1.27 mg/dL [facility] INSURANCE BILL eGFR by CKD-EPI 96 >59 mL/min/1.7 3 [facility] INSURANCE BILL BUN/Creatinine Ratio 14 9 - 20 [facility] INSURANCE BILL Sodium 137 134 - 144 mmol/L [facility] INSURANCE BILL Potassium 4.5 3.5 - 5.2 mmol/L [facility] INSURANCE BILL Chloride 100 96 - 106 mmol/L [facility] INSURANCE BILL CO2 24 20 - 29 mmol/L [facility] INSURANCE BILL Calcium 9.3 8.7 - 10.2 mg/dL [facility] INSURANCE BILL Comment:FASTING 10/24/2023 8:00 AM ELECTRICIAN UNDERGROUND 10/24/2023 Narrative [facility] INSURANCE BILL - 10/25/2023 3:08 AM ELECTRICIAN UNDERGROUND A courtesy copy of this report has been sent to [phone] Resulting Agency Comment Lab Testing performed at: [facility] [address] [facility] [id number] Janessa THORNTON LAB - CHEMISTRY ORDMaria Luz SUN [facility] INSURANCE BILL [address] [place] [address] * GLUCOSE - POINT OF CARE (07/24/2023 8:05 AM ELECTRICIAN UNDERGROUND) Only the most recent of16 resultswithin the time period is included. Glucose WB/POC 108 70 - 115 mg/dL 07/24/2023 8:09 AM ELECTRICIAN UNDERGROUND [facility] Specimen Type Cap Fingerstick 2022 8:09 AM ELECTRICIAN UNDERGROUND [facility] Blood BLOOD SPECIMEN / Unknown 07/24/2023 8:05 AM ELECTRICIAN UNDERGROUND 07/24/2023 8:09 AM ELECTRICIAN UNDERGROUND Johann Fernando MD LAB - POINT OF CARE ORDERABLES Performing Organization Address City/[facility]/ZIP Co de Phone Number [address] [address], [facility] [phone] * PHOSPHORUS BLOOD (07/24/2023 1:49 AM ELECTRICIAN UNDERGROUND) Only the most recent of7 resultswithin the time period is included. Phosphorus 3.9 2.8 - 5.1 mg/dL 07/24/2023 2:39 AM ELECTRICIAN UNDERGROUND [facility] Blood BLOOD SPECIMEN / Unknown Lab Venipuncture / Unknown 07/24/2023 1:49 AM ELECTRICIAN UNDERGROUND 07/24/2023 2:02 AM ELECTRICIAN UNDERGROUND Andreas Patel MD LAB - CHEMISTRY ORD ERABLES [address] [address], [facility] [phone] * MAGNESIUM BLOOD (07/24/2023 1:49 AM ELECTRICIAN UNDERGROUND) Only the most recent of6 resultswithin the time period is included. [facility] Magnesium 1.8 1.6 - 2.6 mg/dL 07/24/2023 2:39 AM ELECTRICIAN UNDERGROUND [facility] Blood BLOOD SPECIMEN / Unknown Lab Venipuncture / Unknown 07/24/2023 1:49 AM ELECTRICIAN UNDERGROUND 07/24/2023 2:02 AM ELECTRICIAN UNDERGROUND Andreas Patel MD LAB - CHEMISTRY ORD BHARATI Performing Organization Address [facility]/ZIP Co de Phone Number [address] [address], [facility] [phone] * HEPATITIS C AB SCREEN RFLX NAAT QUANT (07/22/2023 7:10 AM ELECTRICIAN UNDERGROUND) [facility] Hepatitis C Antibody Non-react jonelle Non-reac tive 07/22/2023 8:31 AM ELECTRICIAN UNDERGROUND [facility] Comment:Hepatitis C Antibody screen indicates no serologic evidence of past or current infection with Hepatitis C Virus. Patients with unexplained liver disease who are immunocompromised or suspected of having acute Hepatitis C infection may benefit from Nucleic Acid Test (BARRY) for Hepatitis C Viral RNA to confirm Hepatitis C status. Blood BLOOD SPECIMEN / Unknown Lab Venipuncture / Unknown 07/22/2023 7:10 AM ELECTRICIAN UNDERGROUND 07/22/2023 7:51 AM ELECTRICIAN UNDERGROUND Landry Rivera MD LAB - CHEMISTRY ORDE DINO Performing Organization Address City/[facility]/ZIP Co de Phone Number [address] [address], [place] [phone] * HIV-1 HIV-2 ANTIBODY + HIV P24 AG PANEL (07/22/2023 7:10 AM ELECTRICIAN UNDERGROUND) [facility] HIV Antigen/Antibod y 1 & 2 Non-reacti ve Non-react jonelle 07/22/2023 8:31 AM ELECTRICIAN UNDERGROUND [facility] Comment:No Laboratory eviden ce of HIV infection. Blood BLOOD SPECIMEN / Unknown Lab Venipuncture / Unknown 07/22/2023 7:10 AM ELECTRICIAN UNDERGROUND 07/22/2023 7:51 AM ELECTRICIAN UNDERGROUND Landry Rivera MD LAB - CHEMISTRY RAMEZ SUN Performing Organization Address City/[facility]/ZIP Co de Phone Number [address] [address], [facility] [phone] * TSH REFLEX FREE T4 (07/22/2023 7:10 AM ELECTRICIAN UNDERGROUND) TSH 1.805 0.350 - 4.940 uIU/mL 07/22/2023 8:41 AM ELECTRICIAN UNDERGROUND [facility] Blood BLOOD SPECIMEN / Unknown Lab Venipuncture / Unknown 07/22/2023 7:10 AM ELECTRICIAN UNDERGROUND 07/22/2023 7:55 AM ELECTRICIAN UNDERGROUND Landry Rivera MD LAB - CHEMISTRY RAMEZ SUN Performing Organization Address [facility] Co de Phone Number [address] [address], [facility] [phone] * B-TYPE NATRIURETIC PEPTIDE (07/22/2023 7:10 AM ELECTRICIAN UNDERGROUND) BNP 11 <100 pg/mL 07/22/2023 8:27 AM ELECTRICIAN UNDERGROUND [facility] Comment: A decision threshold of 100 pg/mL has been demonstrated to provide the maximal combination of sensitivity, specificity and predictive value for the diagnosis of congestive heart failure (CHF). Virtually all patients with no evidence of CHF have BNP values less than 100 pg/mL. A BNP value greater than 100 pg/mL is consistent with the diagnosis of CHF in the appropriate clinical setting. In a study of 693 patients (male and female) with diagnosed CHF, the following values were determined based on the NYHA functional classification system: NYHA Functional Class Mean Valule (pg/mL) % >100 pg/mL I 320 58.1 II 432 73.0 III 656 79.0 IV 1635 98.3 Blood BLOOD SPECIMEN / Unknown Lab Venipuncture / Unknown 07/22/2023 7:10 AM ELECTRICIAN UNDERGROUND 07/22/2023 7:55 AM ELECTRICIAN UNDERGROUND Landry Rivera MD LAB - CHEMISTRY ORDMaria Luz SUN Performing Organization Address City/[facility]/ZIP Co de Phone Number [facility] [address] [place] [address], [place] [phone] * IRON + TRANSFERRIN PANEL (07/21/2023 10:11 AM ELECTRICIAN UNDERGROUND) Iron 60 50 - 175 ug/dL 07/21/2023 11:36 AM [facility] Transferrin 207 174 - 382 mg/dL 07/21/2023 11:36 AM [facility] Transferrin Saturation % 23 16 - 50 % 07/21/2023 11:36 AM [facility] TIBC Calculated 259 240 - 450 ug/dL 07/21/2023 11:36 AM [facility] Blood BLOOD SPECIMEN / Unknown Lab Venipuncture / Unknown 07/21/2023 10:11 AM ELECTRICIAN UNDERGROUND 07/21/2023 10:54 AM ELECTRICIAN UNDERGROUND Andreas Patel MD LAB - CHEMISTRY ORD BHARATI Performing Organization Address City/[facility]/ZIP Co de Phone Number [facility] [address] [place] [phone], [place] [phone] * FERRITIN (07/21/2023 10:11 AM ELECTRICIAN UNDERGROUND) Pathologist [facility] Ferritin 204 22 - 275 ng/mL 07/21/2023 11:53 AM [facility] Blood BLOOD SPECIMEN / Unknown Lab Venipuncture / Unknown 07/21/2023 10:11 AM ELECTRICIAN UNDERGROUND 07/21/2023 10:54 AM ELECTRICIAN UNDERGROUND Andreas Patel MD LAB - CHEMISTRY ORD ERABLES [facility] [address] [place] [address], [place] [phone] * ECHO COMPLETE W CONTRAST W BUBBLE STUDY (07/20/2023 3:32 PM ELECTRICIAN UNDERGROUND) BSA 2.0363407 m2 [facility] FUJ I PACS LV biplane EF 38 52 - 72 % [facility] CV FUJI PACS LV A2C EF 13 48 - 76 % [facility] CV FUJ I PACS LV A4C EF 60 46 - 74 % [facility] CV FUJ I PACS LV stroke vol BP 42.5 mL SSM CV FUJI PACS LV stroke vol BP index 16.8 mL/m2 [facility] CV FUJI PACS LVOT stroke vol 96.83 mL SSM CV FUJI PACS LVOT stroke vol index 38.22 mL/m2 [facility] CV FUJI PACS LV stroke vol 2D teich 47.264 ml SSM CV FUJI PACS LV Stroke Index 2D Teich 18.65 mL/m2 [facility] CV FUJI PACS LV stroke vol index A4C MOD 91.844 ml/m2 [facility] CV FUJI PACS LVIDd 4.25 4.2 - 5.8 cm SSM CV FUJI PACS LVIDs 2.95 2.5 - 4.0 cm SSM CV FUJI PACS IVSd 2D 1.158 0.6 - 1 cm SSM CV FUJI PACS LVPWd 1.29 0.6 - 1 cm SSM CV FUJI PACS Fractional Shortening 2D 31 28 - 44 % [facility] CV FUJI PACS LV ESV BP 68.703 21 - 61 mL SSM CV FUJI PACS LV ESV index BP 27.1 11 - 31 mL/m2 [facility] CV FUJI PACS LV ESV A2C 60.312 15 - 75 mL SSM CV FUJI PACS LV ESV index A2C 23.80 9 - 37 mL/m2 [facility]SM CV FUJI PACS LV EDV BP 111.18 62 - 150 mL SSM CV FUJI PACS LV ESV A4C 76.696 22 - 78 mL SSM CV FUJI PACS LV ESV index A4C 30.27 12 - 40 mL/m2 SSM CV FUJI PACS LV EDV index BP 43.9 34 - 74 mL/m2 SSM CV FUJI PACS LV EDV A2C 88.107 59 - 175 mL SSM CV FUJI PACS LV EDV index A2C 34.77 31 - 87 mL/m2 SSM CV FUJI PACS LV EDV A4C 152.157 mL SSM CV FU JI PACS LV ESV 2D 33.541 21 - 61 mL SSM CV FUJI PACS LV EDV index A4C 60.05 37 - 93 mL/m2 SSM CV FUJI PACS LV ESV index 2D 13.24 11 - 31 mL/m2 SSM CV FUJI PACS LV EDV 2D 80.805 62 - 150 mL SSM CV FUJI PACS LV EDV index 2D 31.89 34 - 74 mL/m2 SSM CV FUJI PACS LVOT diam 2.4 cm SSM CV FUJ I PACS LVOT area 4.55 cm2 SSM CV FUJ I PACS LV RWT 0.608 SSM CV FUJ I PACS LV Valencia A2C 8.103 cm SSM CV F UJI PACS LV Valencia A4C 8.776 cm SSM CV F UJI PACS IVS/LVPW 0.896 SSM CV FUJ I PACS LV mass 2D 142.659 96 - 200 g SSM CV FUJI PACS LV mass index 2D 56.30 50 - 102 g/m2 SSM CV FUJI PACS MV E pk tana 62.082 cm/s SSM CV F UJI PACS MV avg E/e' ratio 12.04 SS M CV FUJI PACS MV A pk tana 88.914 cm/s SSM CV F UJI PACS MV E A ratio 0.70 SSM CV FUJI PACS MV E' lateral tana 6.405 cm/s SS M CV FUJI PACS MV DT 268 ms SSM CV [facility] I PACS MV E' septal tana 4.315 cm/s SSM CV FUJI PACS MV A duration 114 ms SSM CV FUJI PACS MV E/e' septal 14.389 SSM C V FUJI PACS MV E/e' lateral 9.693 SSM CV FUJI PACS LA vol BP 43.36 mL SSM CV FUJ I PACS TR pk tana 216.4 cm/s SSM CV [facility] I PACS LVOT pk tana 1.02 m/s SSM CV F UJI PACS LVOT mn tana 0.72 m/s SSM CV F UJI PACS LVOT mn grad 2.3 mmHg SSM CV FUJI PACS LVOT Cardiac Output 19.76 l/min SSM CV FUJI PACS LVOT Cardiac Index 7.80 l/min/m2 SSM CV FUJI PACS Qp:Qs 0.50 SSM CV FUJ I PACS LA vol index 17.1 16 - 34 mL/m2 SSM CV FUJI PACS LA size 4.321 3.0 - 4.0 cm SSM CV FUJI PACS LA vol BP A-L 45.65 mL SSM CV FUJI PACS RV-valencia basal diam 3.1 2.5 - 4.1 cm SSM CV FUJI PACS RV-valencia longitudinal diam 5.6 5.9 - 8.3 cm SSM CV FUJI PACS RVIDd 3.9 cm SSM CV FUJ I PACS RVOT diam Doppler 2.355 cm SS M CV FUJI PACS RVOT area Doppler 4.36 10 - 24 cm2 SSM CV FUJI PACS RVOT stroke vol 48.48 cm3 SSM CV FUJI PACS RVOT VTI 11.125 cm SSM CV FUJ I PACS TV S' tana 8.654 cm/s SSM CV FUJ I PACS TAPSE 1.774 1.7 cm SSM CV FUJ I PACS RVOT pk tana 0.67 m/s SSM CV F UJI PACS RA area 12.972 cm2 SSM CV FUJ I PACS AV mn grad 3 mmHg SSM CV FU JI PACS AV pk grad 7 mmHg SSM CV FU JI PACS AV mn tana 0.85 m/s SSM CV FUJ I PACS AV pk tana 1.29 m/s SSM CV FUJ I PACS AV VTI 22.296 cm SSM CV FUJ I PACS LVOT pk grad 4.189 mmHg SSM CV FUJI PACS LVOT VTI 21.276 cm SSM CV FUJ I PACS AV area cont VTI 4.3 cm2 SSM CV FUJI PACS AV area pk tana 3.6 cm2 SSM C V FUJI PACS AV Doppler tana index pk tana 0.792 SSM CV FUJI PACS Dimensionless Index 0.954 SSM CV FUJI PACS MV mn grad 1 mmHg SSM CV FU JI PACS MV pk grad 4 mmHg SSM CV FU JI PACS MV mn tana 0.54 m/s SSM CV FUJ I PACS MV pk tana 102.688 cm/s SSM CV FUJ I PACS MV area cont eq 5.15 cm2 SSM CV FUJI PACS MV VTI 18.818 cm SSM CV FUJ I PACS MV decel slope 231.256 cm/s2 SSM C V FUJI PACS TR pk grad 19 mmHg SSM CV FU JI PACS RVOT mn grad 1 mmHg SSM CV FUJI PACS RVOT pk grad 2 mmHg SSM CV FUJI PACS PV area cont eq 4.0 cm2 SSM CV FUJI PACS PV mn grad 1 mmHg SSM CV FU JI PACS PV pk tana 79.308 cm/s SSM CV FUJ I PACS PV pk grad 3 mmHg SSM CV FU JI PACS PV VTI 12.09 cm SSM CV FUJ I PACS PV mn tana 49.83 cm/s SSM CV FUJ I PACS Ascending aorta 4.00 cm SSM CV FUJI PACS IVC size 1.3 cm SSM CV FUJ I PACS RV stroke vol 48.45 mL SSM CV FUJI PACS LA ESV A4C MOD Index 16 ml/m2 SSM CV FUJI PACS LA ESV A2C MOD Index 17 ml/m2 SSM CV FUJI PACS [id number] 7.26 cm SSM CV FUJ I PACS [id number] 6.831 cm SSM CV FUJ I PACS Prox Asc Ao Diameter Index 1.577 cm SSM CV FUJI PACS LVIDs index 1.16 1.3 - 2.1 cm/m2 SSM CV FUJI PACS LV LVIDd index 1.68 2.2 - 3.0 cm/m2 SSM CV FUJI PACS Sinus of Valsalva 3.70 cm SS M CV FUJI PACS Sinus of valsalva index 1.46 cm/m2 SSM CV FUJI PACS LV EDV A/L A4C 159.049 mL SSM C V FUJI PACS LV EDV index A/L A4C 62.77 mL/m2 SSM CV FUJI PACS LV Area Valencia A4C 40.522 cm2 SSM CV FUJI PACS RVSP 22.0 mmHg SSM CV FUJ I PACS RAP 3.0 mmHg SSM CV FUJ I PACS Anatomical Region Laterality Modality Ultrasound Narrative 07/20/2023 8:29 PM ELECTRICIAN UNDERGROUND Left Ventricle: Left ventricle is mildly dilated. Normal wall thickness. Moderately reduced systolic function. EF by 2D Watson biplane is 38%. Regional wall motion abnormalities present. Grade I diastolic dysfunction with normal left atrial pressure. Right Ventricle: Right ventricle size is normal. Normal systolic function. Left Atrium: No right to left intracardiac or extracardiac shunt present viewable with agitated saline and color Doppler. Tricuspid Valve: Trace regurgitation. The pulmonary artery systolic pressure is normal (under 35 mmHg). Estimated RVSP is 22.0 mmHg. Aorta: Normal sized sinus of Valsalva (aortic root). Mildly enlarged ascending aorta. Sinus of Valsalva is 3.70 cm. Ascending Aorta is 4.00 cm. Sinus of Valsalva indexed to BSA is 1.46 cm/m2. Left Ventricle Left ventricle is mildly dilated. Normal wall thickness. Moderately reduced systolic function. EF by 2D Watson biplane is 38%. Regional wall motion abnormalities present. Grade I diastolic dysfunction with normal left atrial pressure. Right Ventricle Right ventricle size is normal. Normal systolic function. Left Atrium Left atrium size is normal. Left atrium volume index is 17.1 mL/m2. No right to left intracardiac or extracardiac shunt present viewable with agitated saline and color Doppler. Right Atrium Right atrium size is normal. IVC/SVC IVC diameter is less than or equal to 21 mm and decreases greater than 50% during inspiration; therefore the estimated right atrial pressure is normal (~3 mmHg). Mitral Valve Valve structure is normal. No restricted motion. Trace regurgitation. No stenosis. Tricuspid Valve Not well visualized. No restricted motion. Trace regurgitation. The pulmonary artery systolic pressure is normal (under 35 mmHg). Estimated RVSP is 22.0 mmHg. No stenosis. Aortic Valve Valve structure is trileaflet. No restricted motion. No regurgitation. No stenosis. AV mean gradient is 3 mmHg. AV peak velocity is 1.29 m/s. AV area by continuity VTI is 4.3 cm2. Pulmonic Valve Not well visualized, but appears grossly normal. Trace regurgitation. No stenosis. Ascending Aorta Normal sized sinus of Valsalva (aortic root). Mildly enlarged ascending aorta. Sinus of Valsalva is 3.70 cm. Ascending Aorta is 4.00 cm. Sinus of Valsalva indexed to BSA is 1.46 cm/m2. Pericardium No pericardial effusion. Study Details Study quality was adequate. A complete color Doppler, spectral Doppler and M- mode echocardiogram was performed. The apical, parasternal and subcostal views were obtained. Definity and saline ultrasound enhancing agent used. Patient exhibited sinus rhythm. Technical difficulties due to uncooperative patient, patient's body habitus, patient supine position and patient positioning. Wall Scoring Baseline Score Index: 2.12 The following segments are akinetic: mid anterolateral and apical lateral. The following segments are hypokinetic: basal anterior, basal anteroseptal, basal inferoseptal, basal inferior, basal inferolateral, basal anterolateral, mid anterior, mid anteroseptal, mid inferoseptal, mid inferior, mid inferolateral, apical anterior, apical septal, apical inferior and apex. Procedure Note Ena Cevallos MD - 07/20/2023 Left Ventricle: Left ventricle is mildly dilated. Normal wallthickness. Moderately reduced systolic function. EF by 2D Watson biplaneis 38%. Regional wall motion abnormalities present. Grade I diastolicdysfunction with normal left atrial pressure. Right Ventricle: Right ventricle size is normal. Normal systolicfunction. Left Atrium: No right to left intracardiac or extracardiac shuntpresent viewable with agitated saline and color Doppler. Tricuspid Valve: Trace regurgitation. The pulmonary artery systolicpressure is normal (under 35 mmHg). Estimated RVSP is 22.0 mmHg. Aorta: Normal sized sinus of Valsalva (aortic root). Mildly enlargedascending aorta. Sinus of Valsalva is 3.70 cm. Ascending Aorta is 4.00 cm.Sinus of Valsalva indexed to BSA is 1.46 cm/m2. Jarocho Escobedo MD ECHO CUPID * CARDIAC EKG ORDER (07/20/2023 2:47 PM ELECTRICIAN UNDERGROUND) Narrative 07/20/2023 2:47 PM ELECTRICIAN UNDERGROUND Ordered by an unspecified provider. Scanned Document CARDIAC SERVICES ORD ERABLES * CT HEAD WO CONTRAST (07/20/2023 1:27 PM ELECTRICIAN UNDERGROUND) Anatomical Region Laterality Modality Head Computed Tomogra phy 07/20/2023 2:53 PM ELECTRICIAN UNDERGROUND Impressions 07/20/2023 3:00 PM ELECTRICIAN UNDERGROUND IMPRESSION: No evidence of acute intracranial hemorrhage. Findings consistent with a small, acute infarct in the posterior limb of the left internal capsule appears stable relative previous brain MR. Clinical correlation recommended. Findings consistent with small vessel disease. > Interpreting Provider: Jarett Nicholson MD on 07/20/2023 3:00 PM Narrative 07/20/2023 3:00 PM ELECTRICIAN UNDERGROUND PROCEDURE: CT HEAD WO CONTRAST DATE/TIME OF EXAM: 07/20/2023 1:28 PM CLINICAL INFORMATION: None relevant/not provided if blank. Indication: R53.1: Right sided weakness Additional History: COMPARISON: MRI brain 19 July 2023. TECHNIQUE: Noncontrast CT brain was performed utilizing standard protocol. CT dose reduction technique was used, including Automated Exposure Control. FINDINGS: There is no evidence of acute intracranial hemorrhage, mass effect, or midline shift. The ventricles and sulci are normal in size. Lee-white matter differentiation is preserved. There is an oval area of decreased attenuation consistent with an acute infarct in the posterior limb of the left internal capsule measuring approximately 17 mm in AP, 5 mm in transverse, and 9 mm in craniocaudal dimensions. Patchy decreased attenuation is present within the white matter of the cerebral hemispheres likely related to small vessel disease in a patient of this age. There is mild enlargement of the sella turcica with pituitary parenchyma and its inferior aspect consistent with a partially empty sella. Bone window images are negative for depressed skull fracture. Minimal mucous membrane thickening is present in both ethmoid sinuses. Minimal mucous membrane thickening/fluid is present in the inferior mastoid air cells. There is some soft tissue thickening in the posterior nasopharynx consistent with prominent adenoids. When today's study is compared to the MR brain of 19 July 2023, there has been no definite interval change. Procedure Note Jarett Nicholson MD - 07/20/2023 PROCEDURE: CT HEAD WO CONTRAST DATE/TIME OF EXAM: 07/20/2023 1:28 PM CLINICAL INFORMATION: None relevant/not provided if blank. Indication: R53.1: Right sided weakness Additional History: COMPARISON: MRI brain 19 July 2023. TECHNIQUE: Noncontrast CT brain was performed utilizing standard protocol. CT dose reduction technique was used, including Automated ExposureControl. FINDINGS: There is no evidence of acute intracranial hemorrhage, mass effect, or midline shift. The ventricles and sulci are normal in size. Lee-white matter differentiation is preserved. There is an oval area of decreased attenuation consistent with an acute infarct in the posterior limb of the left internal capsule measuring approximately 17 mm in AP, 5mm in transverse, and 9 mm in craniocaudal dimensions. Patchy decreased attenuation is present within the white matter of the cerebralhemispheres likely related to small vessel disease in a patient of this age. Thereis mild enlargement of the sella turcica with pituitary parenchyma and its inferior aspect consistent with a partially empty sella. Bone window images are negative for depressed skull fracture. Minimal mucous membrane thickening is present in both ethmoid sinuses. Minimal mucous membrane thickening/fluid is present in the inferior mastoid air cells. There is some soft tissue thickening in the posterior nasopharynx consistent with prominent adenoids. When today's study is compared to the MR brain of 19 July 2023,there has been no definite interval change. IMPRESSION: No evidence of acute intracranial hemorrhage. Findings consistent with a small, acute infarct in the posterior limb of the left internal capsule appears stable relative previous brain MR. Clinical correlation recommended. Findings consistent with small vessel disease. > Interpreting Provider: Jarett Nicholson MD on 07/20/2023 3:00 PM Andreas Patel MD CT ORDERABLES * MRI BRAIN WO CONTRAST (07/19/2023 11:15 PM ELECTRICIAN UNDERGROUND) Anatomical Region Laterality Modality Head Magnetic Resonan ce 07/19/2023 11:3 7 PM [facility] UNDERGROUND Impressions 07/19/2023 11:44 PM [facility] UNDERGROUND IMPRESSION: 1. 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 No acute intracranial hemorrhage. 2. Presumed chronic small vessel ischemic disease of the brain. These findings were discussed in detail with the patient's care provider, Dr. Peña by Dr. Mei via telephone at 11:43 PM on 07/19/2023 fall with readback comprehension and verification. > Interpreting Provider: Magnolia Mei MD on 07/19/2023 11:44 PM Narrative 07/19/2023 11:44 PM [facility] PROCEDURE: MRI BRAIN WO CONTRAST, DATE/TIME OF EXAM: 07/19/2023 11:26 PM, LOCATION [facility] INDICATION: R53.1: Right sided weakness ADDITIONAL CLINICAL INFORMATION: Ordering Provider Reason For Exam: cva Technologist Note: Additional: EXAMINATION: Magnetic resonance imaging (MRI) of the brain without contrast TECHNIQUE: MRI of the brain was performed without intravenous contrast according to standard protocol. COMPARISON: Comparison is made with a study from earlier today. FINDINGS: There is an acute infarct in the posterior limb of the left internal capsule measuring approximately 6 x 20 mm in axial dimension. No evidence of acute or chronic hemorrhage is identified. The ventricles are of normal size, shape, and morphology. No mass effect or midline shift is seen. Mild periventricular and subcortical white matter FLAIR hyperintensities are nonspecific, but can be seen in the setting of chronic small vessel ischemic disease. Other than a partially empty sella, the corpus callosum and sella appear normal. The posterior fossa, brainstem, and craniocervical junction appear normal. Other than opacification of some mastoid air cells, the visualized portions of the orbits, paranasal sinuses, and mastoids appear normal. Normal flow voids are demonstrated in the carotid arteries and basilar artery. The calvarium and visualized cervical spine appear normal. Procedure Note Magnolia Mei MD - 07/19/2023 PROCEDURE: MRI BRAIN WO CONTRAST, DATE/TIME OF EXAM: 07/19/2023 11:26PM, LOCATION [facility] INDICATION: R53.1: Right sided weakness ADDITIONAL CLINICAL INFORMATION: Ordering Provider Reason For Exam: cva Technologist Note: Additional: EXAMINATION: Magnetic resonance imaging (MRI) of the brain withoutcontrast TECHNIQUE: MRI of the brain was performed without intravenous contrast according to standard protocol. COMPARISON: Comparison is made with a study from earlier today. FINDINGS: There is an acute infarct in the posterior limb of the left internal capsule measuring approximately 6 x 20 mm in axial dimension. Noevidence of acute or chronic hemorrhage is identified. The ventricles are ofnormal size, shape, and morphology. No mass effect or midline shift is seen.Mild periventricular and subcortical white matter FLAIR hyperintensities are nonspecific, but can be seen in the setting of chronic small vessel ischemic disease. Other than a partially empty sella, the corpuscallosum and sella appear normal. The posterior fossa, brainstem, andcraniocervical junction appear normal. Other than opacification of some mastoid air cells, the visualizedportions of the orbits, paranasal sinuses, and mastoids appear normal. Normalflow voids are demonstrated in the carotid arteries and basilar artery. The calvarium and visualized cervical spine appear normal. IMPRESSION: 1. 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 No acute intracranial hemorrhage. 2. Presumed chronic small vessel ischemic disease of the brain. These findings were discussed in detail with the patient's careprovider, Dr. Peña by Dr. Mei via telephone at 11:43 PM on 07/19/2023 fallwith readback comprehension and verification. > Interpreting Provider: Magnolia Mei MD on 07/19/2023 11:44 PM Jarocho Escobedo MD MR ORDERABLES * TROPONIN-I HIGH SENSITIVE (07/19/2023 10:03 PM [facility] UNDER[facility]) Only the most recent of3 resultswithin the time period is included. Troponin I High Sensitive 6 <=35 ng/L 07/19/2023 10:44 PM [facility] Blood BLOOD SPECIMEN / Unknown Venipuncture / Unknown 07/19/2023 10:03 PM [facility]IAN [facility]ER[facility] 07/19/2023 10:12 PM [facility]IAN UNDERGROUND Jarocho Escobedo [facility] Organization Address City/State/ZIP Co de Phone Number [facility] [address] [place] [phone], [facility] [phone] * (ABNORMAL) HEMOGLOBIN A1C (07/19/2023 5:47 PM [facility]RICIAN UNDERGROUND) Pathologist [facility] [place] Hemoglobin A1c 6.8(H) <=5.6 % 07/20/2023 9:11 AM [facility] Estimated Average Glucose 148 mg/dL 07/20/2023 9:11 AM [facility] Comment: HbA1c Interpretation: Normal : < 5.7% Pre-diabetes: 5.7-6.4% Diabetes: Equal to or greater than 6.5% Test results diagnostic of diabetes should be repeated for confirmation. Treatment target values recommended by ADA and other clinical organizations should be used to evaluate metabolic control in patients. Reference: [place] [employer], Standards of Care in Diabetes -2020 In patients 70 years and older consider HbA1c target range of 7.0-7.5% (Reference: Jozef Caldwell et al. JAMDA. 2012) The Sebia assay for the measurement of HbA1c is a National Glycohemoglobin Standardization Program (NGSP) certified method. Blood BLOOD SPECIMEN / Unknown Venipuncture / Unknown 07/19/2023 5:47 PM [facility] UNDER[facility] 07/19/2023 5:57 PM [facility] UNDER[facility] Jarocho Escobedo MD LAB - CHEMISTRY RAMEZ SUN Performing Organization Address City/[facility]/ZIP Co de Phone Number [facility] [address] [place] [phone], [place] [phone] * (ABNORMAL) URINE MICROSCOPIC ONLY REFLEX TO CULTURE (07/19/2023 3:26 PM [facility]ER[facility]) Reflex Status Culture to follow 07/19/2023 4:07 PM [facility] UNDERGROUND [facility] RBC UA 11-20(A) None Seen, 0-2, 3-5 /HPF 07/19/2023 4:07 PM [facility] WBC UA 21-50(A) None Seen, 0-5 /HPF 07/19/2023 4:07 PM [facility] Bacteria UA Trace(A) None /HPF 07/19/2023 4:07 PM [facility] Squamous Epithelial Cells UA 0-2 None Seen, 0-2, 3-5 /HPF 07/19/2023 4:07 PM [facility] Mucus UA 1+ /LPF 07/19/2023 4:07 PM [facility] Urine URINE SPECIMEN OBTAINED BY CLEAN CATCH PROCEDURE / Unknown Collection / Unknown 07/19/2023 3:26 PM [facility]ER[facility] 07/19/2023 3:29 PM [facility] UNDER[facility] Narrative [facility] - 07/19/2023 4:07 PM [facility] UNDERGROUND Jarocho Escobedo MD LAB - URINALYSIS ORD BHARATI [facility] [address] [place] [address], [place] [phone] * TROPONIN-I HIGH SENSITIVE BASELINE + 1HR (07/19/2023 3:26 PM [facility] UNDER[facility]) Troponin I High Sensitive 3 <=35 ng/L 07/19/2023 4:09 PM [facility] UNDERGROUND [facility] Blood BLOOD SPECIMEN / Unknown Venipuncture / Unknown 07/19/2023 3:26 PM [facility]ICIAN UNDERGROUND 07/19/2023 3:34 PM [facility] UNDERGROUND Jarocho Escobedo MD LAB - CHEMISTRY ORDE DINO [address] [address], [facility] [phone] * (ABNORMAL) URINALYSIS REFLEX MICROSCOPIC REFLEX CULTURE (07/19/2023 3:26 PM [facility] UNDER[facility]) Color UA Yellow Straw, Yellow 07/19/2023 3:41 PM [facility] UNDERGROUND [facility] Clarity UA Clear Clear 07/19/2023 3:41 PM [facility] Specific [place] UA 1.018 1.005 - 1.030 07/19/2023 3:41 PM [facility] pH UA 7.0 5.0 - 8.0 pH 07/19/2023 3:41 PM [facility] Protein UA 1+(A) Negative 07/19/2023 3:41 PM [facility]IAN UNDERGROUND [facility] Glucose UA 3+(A) Negative 07/19/2023 3:41 PM [facility] UNDERGROUND [facility] Ketone UA Negative Negative 07/19/2023 3:41 PM [facility] UNDER[facility] Bilirubin UA Negative Negative 07/19/2023 3:41 PM [facility] Blood UA 1+(A) Negative 07/19/2023 3:41 PM [facility] UNDERGROUND [facility] Nitrite UA Negative Negative 07/19/2023 3:41 PM [facility] Leukocyte Esterase 2+(A) Negative 07/19/2023 3:41 PM [facility] UNDER[facility] Urobilinogen UA Negative Negative mg/dL 07/19/2023 3:41 PM [facility] UNDERGROUND [facility] Urine URINE SPECIMEN OBTAINED BY CLEAN CATCH PROCEDURE / Unknown Collection / Unknown 07/19/2023 3:26 PM [facility]RICIAN UNDERGROUND 07/19/2023 3:29 PM [facility]IAN UNDERGROUND Narrative [facility] - 07/19/2023 3:41 PM [facility]IAN UNDERGROUND Jarocho Escobedo MD LAB - URINALYSIS ORD BHARATI [address] [place] [address], [place] [phone] * BLOOD TYPE VERIFICATION (07/19/2023 3:26 PM ELECTRICIAN UNDERGROUND) ABO Rh O POS 07/19/2023 4:0 2 PM ELECTRICIAN UNDERGROUND [facility] BLOOD B[facility] LAB Blood Bank BLOOD SPECIMEN / Unknown Venipuncture / Unknown 07/19/2023 3:26 PM ELECTRICIAN UNDERGROUND 07/19/2023 3:33 PM ELECTRICIAN UNDERGROUND Emre Moore MD LAB - BLOOD BANK ORD ERABLES [facility] BLOOD [facility] LAB [address] [place] [address], [place] [phone] * CULTURE URINE (07/19/2023 3:26 PM ELECTRICIAN UNDERGROUND) Pathologist [facility] [place] Culture Urine >100,000 CFU/mL urogenital flaca 07/20/2023 10:37 PM ELECTRICIAN UNDERGROUND [facility] MICROBIOLOG[facility] Urine URINE SPECIMEN OBTAINED BY CLEAN CATCH PROCEDURE / Unknown Collection / Unknown 07/19/2023 3:26 PM ELECTRICIAN UNDERGROUND 07/19/2023 4:07 PM ELECTRICIAN UNDERGROUND Jarocho Escobedo MD LAB - MICROBIOLOGY O RDERABLES [facility] [address] [place] [address], [facility] [phone] * URINE DRUG SCREEN IMMUNOASSAY (07/19/2023 3:26 PM [facility]RICIAN UNDERGROUND) Pathologist [facility] [place] Amphetamines Screen Urine Negative Negative: < 1000 ng/mL 07/19/2023 4:22 PM [facility] Barbiturates Screen Urine Negative Negative: < 200 ng/mL 07/19/2023 4:22 PM [facility] Benzodiazepine Screen Urine Negative Negative: < 200 ng/mL 07/19/2023 4:22 PM [facility] Opiates Urine Negative Negative: < 300 ng/mL 07/19/2023 4:22 PM [facility] Cocaine Metabolites Urine Negative Negative: < 300 ng/mL 07/19/2023 4:22 PM [facility] Phencyclidine Screen Urine Negative Negative: < 25 ng/ml 07/19/2023 4:22 PM [facility] Cannabinoids Screen Urine Negative Negative: <50 ng/mL 07/19/2023 4:22 PM [facility] Methadone Screen Urine Negative Negative: < 300 ng/mL 07/19/2023 4:22 PM [facility] Fentanyl Screen Urine Negative Negative: <1.5 ng/mL 07/19/2023 4:22 PM [facility] Urine URINE / Unknown Collection / Unknown 07/19/2023 3:26 PM [facility] 07/19/2023 3:29 PM [facility] - 07/19/2023 4:22 PM [facility] The Urine Toxicology Screening Panel does not screen for Propoxyphene, Meprobamate, Carisoprodol, Trazodone, [id number] medications and/or volatiles (Acetone, Isopropanol, Methanol or Ethylene Glycol). Ethanol, Salicylate, Acetaminophen, Tricyclic Antidepressants and several therapeutic drugs may be individually assayed in serum or plasma specimen. Toxicology testing by the [facility] is an aid to medical diagnosis and treatment of patients. No documented chain of custody was maintained. Results are intended to be used for clinical purposes only. Jarocho Escobedo MD LAB - URINE CHEMISTR Y ORDERABLES [facility] [address] [place] [address], [facility] [phone] * (ABNORMAL) LIPID PROFILE (07/19/2023 3:26 PM [facility]) Cholesterol Total 108 <200 mg/dL 07/19/2023 4:04 PM [facility] HDL 38(L) >40 mg/dL 07/19/2023 4:04 PM [facility] Comment: ATP III Classification of HDL Cholesterol: <40 mg/dL: Considered a major risk factor. >60 mg/dL: Considered a negative risk factor. LDL Calculated 57 <100 mg/dL 07/19/2023 4:04 PM [facility] Comment: ATP III Classification of LDL Cholesterol: <100 mg/dL: Optimal 100 - 129 mg/dL: Near Optimal/Above Optimal 130 - 159 mg/dL: Borderline High 160 - 189 mg/dL: High >190 mg/dL: Very High Triglycerides 63 <150 mg/dL 07/19/2023 4:04 PM [facility] Comment: ATP III Classification of Triglycerides: <150 mg/dL: Normal 150 - 199 mg/dL: Borderline High 200 - 400 mg/dL: High >500 mg/dL: Very High Blood BLOOD SPECIMEN / Unknown Venipuncture / Unknown 07/19/2023 3:26 PM E[facility]RICIAN UNDERGROUND 07/19/2023 3:34 PM ELECTRICIAN UNDERGROUND Jarocho Escobedo MD LAB - CHEMISTRY RAMEZ SUN Performing Organization Address [facility]/ZIP Co de Phone Number [address] [address], [facility] [phone] * PT-INR [facility] (07/19/2023 2:20 PM ELECTRICIAN UNDERGROUND) Pathologist [facility] [place] PT 14.3 12.1 - 14.8 Seconds 07/19/2023 2:50 PM [facility] INR 1.1 See Comment 07/19/2023 2:50 PM [facility] Comment:The suggested therap eutic range for standard coumadin (warfarin) therapy is an INR of 2.0-3.0. For high-risk patients (Mechanical Mitral Valve Prosthesis, etc.), the suggested prophylactic therapeutic range is an INR of 2.5-3.5. Blood BLOOD SPECIMEN / Unknown Venipuncture / Unknown 07/19/2023 2:20 PM E[facility]RICIAN UNDERGROUND 07/19/2023 2:27 PM [facility]ICIAN UNDERGROUND Emre Moore MD LAB - COAGULATION OR DERABLES Performing Organization Address [facility]/ZIP Co de Phone Number [address] [address], [place] [phone] * TYPE + SCREEN PANEL (07/19/2023 2:20 PM ELECTRICIAN UNDERGROUND) Antibody Screen NEG 3:04 PM [facility] BLOOD [facility] LAB ABO Rh O POS 07/19/2023 3:04 PM ELECTRICIAN UNDERGROUND [facility] BLOOD [facility] LAB Blood Bank BLOOD SPECIMEN / Unknown Venipuncture / Unknown 07/19/2023 2:20 PM ELECTRICIAN UNDERGROUND 07/19/2023 2:26 PM ELECTRICIAN UNDERGROUND Emre Moore MD LAB - BLOOD BANK ORD ERABLES [facility] B[facility]OD [facility] [address] [place] [address], [facility] [phone] * (ABNORMAL) COMPREHENSIVE METABOLIC PANEL (07/19/2023 2:20 PM ELECTRICIAN UNDERGROUND) BUN 6(L) 7 - 26 mg/dL 07/19/2023 2:53 PM [facility] Creatinine 0.72 0.71 - 1.16 mg/dL 07/19/2023 2:53 PM [facility] Sodium 138 136 - 145 mmol/L 07/19/2023 2:53 PM [facility] Potassium 3.0(L) 3.5 - 4.5 mmol/L 07/19/2023 2:53 PM [facility] Chloride 101 98 - 107 mmol/L 07/19/2023 2:53 PM [facility] CO2 24 22 - 29 mmol/L 07/19/2023 2:53 PM [facility] Glucose 189(H) 70 - 115 mg/dL 07/19/2023 2:53 PM [facility] Calcium 8.9 8.4 - 10.2 mg/dL 07/19/2023 2:53 PM [facility] Protein Total 8.0 6.0 - 8.3 g/dL 07/19/2023 2:53 PM [facility] Albumin 3.4 3.4 - 5.0 g/dL 07/19/2023 2:53 PM [facility] Bilirubin Total 0.7 0.2 - 1.2 mg/dL 07/19/2023 2:53 PM [facility] Alkaline Phosphatase 79 40 - 150 U/L 07/19/2023 2:53 PM [facility] ALT 57(H) 5 - 55 U/L 07/19/2023 2:53 PM ELECTRICIAN UNDERGROUND [facility] AST 48(H) 5 - 34 U/L 07/19/2023 2:53 PM [facility] Anion Gap 13 6 - 16 07/19/2023 2:53 PM [facility] BUN/Creatinine Ratio 8 7 - 23 07/19/2023 2:53 PM [facility] Osmolality Calculated 289 275 - 295 mOsm/kg 07/19/2023 2:53 PM [facility] Albumin/Globulin Ratio 0.7(L) 1.1 - 2.3 07/19/2023 2:53 PM [facility] eGFR by CKD-EPI >90 >=90 mL/min/1.7 3 m2 07/19/2023 2:53 PM [facility] Blood BLOOD SPECIMEN / Unknown Venipuncture / Unknown 07/19/2023 2:20 PM E[facility]RICIAN UNDERGROUND 07/19/2023 2:27 PM E[employer]RICIAN UNDERGROUND Emre Moore MD LAB - CHEMISTRY RAMEZ SUN [facility] Organization Address City/State/[facility] Co de Phone Number [address] [address], [facility] [phone] * ALCOHOL ETHYL BLOOD (07/19/2023 2:20 PM ELECTRICIAN UNDERGROUND) Ethanol (mg/dL) <10 <=10 mg/dL 7:48 PM [facility] Ethanol Calculated (g/dL) <0.010 <0.010 g/dL 07/19/2023 7:48 PM [facility] Blood BLOOD SPECIMEN / Unknown Venipuncture / Unknown 07/19/2023 2:20 PM ELECTRICIAN UNDERGROUND 07/19/2023 7:39 PM ELECTRICIAN UNDERGROUND [facility] - 07/19/2023 7:48 PM ELECTRICIAN UNDERGROUND Ethanol Interp <10: None Detected. Depression of OTR TANKER TRUCK DRIVER: >100 mg/dl Potentially Critical: >250 mg/dl Potentially Fatal >400 mg/dl Ethanol in the patient's blood will contribute to the osmolar gap. Ethanol's contribution to the osmolar gap can be estimated by dividing the concentration of ethanol in mg/dL by 4.6. This test is for clinical use only and does not equal a HARRY for legal purposes. Jarocho Escobedo MD LAB - CHEMISTRY RAME[facility] [place] [address], [facility] [phone] * XR CHEST 1VW PORTABLE (07/19/2023 2:20 PM ELECTRICIAN UNDERGROUND) Anatomical Region Laterality Modality Chest Radiographic Safia ging 07/19/2023 2:36 PM ELECTRICIAN UNDERGROUND Narrative 07/19/2023 2:57 PM ELECTRICIAN UNDERGROUND PROCEDURE: XR CHEST 1VW PORTABLE, DATE/TIME OF EXAM: 07/19/2023 2:20 PM, LOCATION [facility] INDICATION: R09.02: Hypoxia ADDITIONAL CLINICAL INFORMATION: Ordering Provider Reason For Exam: hypoxia COMPARISON: None. TECHNIQUE: Frontal radiograph of the chest. FINDINGS/IMPRESSION: There is no focal consolidation, pleural effusion, or pneumothorax. The cardiomediastinal silhouette is normal. The visible bony thorax is intact. Report dictated by Sarmad Moon MD, MD (residential green building designer). Maryam French MD have personally reviewed and interpreted this examination/study. > Interpreting Provider: Maryam Vergara MD on 07/19/2023 2:57 PM Procedure Note Maryam Vergara MD - 07/19/2023 PROCEDURE: XR CHEST 1VW PORTABLE, DATE/TIME OF EXAM: 07/19/2023 2:20PM, LOCATION [facility] INDICATION: R09.02: Hypoxia ADDITIONAL CLINICAL INFORMATION: Ordering Provider Reason For Exam: hypoxia COMPARISON: None. TECHNIQUE: Frontal radiograph of the chest. FINDINGS/IMPRESSION: There is no focal consolidation, pleural effusion, or pneumothorax. The cardiomediastinal silhouette is normal. The visible bony thorax isintact. Report dictated by Sarmad Moon MD, MD (residential green building designer). Maryam French MD have personally reviewed and interpreted this examination/study. > Interpreting Provider: Maryam Vergara MD on 07/19/2023 2:57 PM Jarocho Escobedo MD DIAGNOSTIC IMAGING O RDERABLES * EKG 12-LEAD (07/19/2023 2:19 PM ELECTRICIAN UNDERGROUND) Ventricular Rate 96 BPM [facility] M[facility] Atrial Rate 96 BPM [facility] P-R Interval 164 ms [facility] QRS Duration ms 110 ms [facility] Q-T Interval ms 380 ms [facility] QTC Calculation (Bezet) 480 ms [facility] Calculated P [place] 41 degrees [facility] MUSE Calculated R [place] -22 degrees [facility] M[facility] Calculated T [place] 34 degrees [facility] Interpretation EKG NORMAL SINUS RHYTHM POSSIBLE LEFT ATRIAL ENLARGEMENT PROLONGED QT ABNORMAL ECG NO PREVIOUS ECGS AVAILABLE Confirmed by MD MICHELE, MIGUELINA ([id number]) on 07/19/2023 3:49:35 PM [facility] M[facility] 07/19/2023 2:19 PM E[facility]RICIAN UNDERGROUND 07/19/2023 3:49 PM ELECTRICIAN UNDERGROUND Emre Moore MD ECG ORDERABLES [facility] [place] * INR WHOLE BLOOD - POINT OF CARE (IP) STROKE (07/19/2023 2:06 PM ELECTRICIAN UNDERGROUND) [facility] INR 1.1 0.9 - 1.2 07/19/2023 2:26 PM ELECTRICIAN UNDERGROUND [facility] Device [id number] 07/19/2023 2:26 PM ELECTRICIAN UNDERGROUND [facility] Scrap Shear Operator ID [id number] 07/19/2023 2:26 PM ELECTRICIAN UNDERGROUND [facility] Blood BLOOD SPECIMEN / Unknown 07/19/2023 2:06 PM ELECTRICIAN UNDERGROUND 07/19/2023 2:26 PM ELECTRICIAN UNDERGROUND Jarocho Escobedo MD LAB - POINT OF CARE ORDERABLES [facility] [address] [place] [address], [facility] [phone] * CT ANGIO BRAIN NECK STROKE (07/19/2023 2:05 PM ELECTRICIAN UNDERGROUND) Anatomical Region Laterality Modality Head Computed Tomogra phy 07/19/2023 2:16 PM [facility]RICIAN UNDERGROUND Impressions 07/19/2023 2:43 PM [facility]RICIAN UNDERGROUND IMPRESSION: No significant stenosis in the cervical circulation. No significant stenosis or definite large vessel occlusion in the intracranial circulation. There is mild calcified plaquing in the cavernous internal carotid arteries bilaterally. 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 Enlarged mediastinal lymph node to the right of the trachea measuring 22 mm in long axis and 14 mm in short axis. Exact determination of the of lymph node enlargement enlargement cannot made on the basis of this study. Follow-up CT imaging of the chest is recommended for further evaluation. Degenerative changes in cervical spine with multilevel spondylosis and disc protrusions. Severe canal narrowing and likely cord impingement or produced at C5-6 with moderate canal narrowing at C3 at C4-5. Clinical correlation is recommended. Consider follow-up cervical MR imaging. Findings suggestive of prominent adenoids. Clinical correlation recommended. Dental caries. > Interpreting Provider: Jarett Nicholson MD on 07/19/2023 2:43 PM Narrative 07/19/2023 2:43 PM [facility]IAN [facility]ER[facility] PROCEDURE: CT ANGIO BRAIN NECK STROKE DATE/TIME OF EXAM: 07/19/2023 2:20 PM CLINICAL INFORMATION: None relevant/not provided if blank. Indication: R53.1: Right sided weakness Additional History: COMPARISON: None. TECHNIQUE: CT angiography of the brain and neck was performed without IV contrast followed by IV contrast, including 3D MIPS post processing CTA image reconstruction provided from an independent workstation. Stenosis measurements are based on NASCET criteria. CT dose reduction technique was used, including Automated Exposure Control. CONTRAST: 75 mL of Isovue-370 contrast IV.IOPAMIDOL 76 % IV SOLN:75 mL FINDINGS: CT angiography neck: There is no significant plaquing in the visualized aortic arch which is mildly ectatic. There is a classic orientation of the great vessels from the aortic arch. There are no significant stenoses in the innominate or proximal subclavian arteries. The cervical left carotid circulation is patent. There is no significant stenosis in the cervical left carotid circulation. The cervical right carotid circulation is patent. There is no significant stenosis in the cervical right carotid circulation. There are 2 vertebral arteries. The left vertebral artery is slightly larger than the right. There are no significant stenoses in the cervical vertebral arteries. There are some focal areas of mild narrowing in the V2 segment of the right vertebral artery in the regions of the foramina transversaria. CT angiography head: The intracranial carotid arteries are patent. There is mild calcified plaquing in the cavernous portions of both internal carotid arteries. There is no significant stenosis in the intracranial internal carotid arteries. There are no significant stenoses in the intracranial vertebral arteries. There is a small fenestration in the inferior aspect of the basilar artery. There are no significant stenoses in the basilar artery. There is enhancement of the anterior, middle, and posterior cerebral arteries without significant stenosis or definite large vessel occlusion. There is enhancement of the major dural venous sinuses. Non angiographic findings: The sella turcica is mildly enlarged with 2 enteric parenchyma its inferior aspect consistent with a partially empty sella. 5Minimal mucous membrane thickening is present in the ethmoid sinuses. Dental caries are present characterized by cavities and multiple periapical lucencies. There is some soft tissue thickening in the posterior nasopharynx suggestive of prominent adenoids. There are degenerative changes in the cervical spine there is spondylosis at all levels from C3 through C7. There are small associated central disc protrusions at C3-4 and C4-5 with moderate canal narrowing. At C5-6 there is a partially calcified central/left paracentral disc protrusion producing severe canal narrowing possibly cord impingement. At C6-7 there is an associated partially calcified central disc protrusion with mild canal narrowing. There are no confluent infiltrates in the upper lungs. There is an enlarged upper mediastinal lymph nodes to the right of the trachea measuring 22 mm in long axis and 14 mm in short axis. Procedure Note Jarett Nicholson MD - 07/19/2023 PROCEDURE: CT ANGIO BRAIN NECK STROKE DATE/TIME OF EXAM: 07/19/2023 2:20 PM CLINICAL INFORMATION: None relevant/not provided if blank. Indication: R53.1: Right sided weakness Additional History: COMPARISON: None. TECHNIQUE: CT angiography of the brain and neck was performed without IV contrast followed by IV contrast, including 3D MIPS post processing CTA image reconstruction provided from an independent workstation. Stenosis measurements are based on NASCET criteria. CT dose reduction technique was used, including Automated ExposureControl. CONTRAST: 75 mL of Isovue-370 contrast IV.IOPAMIDOL 76 % IV SOLN:75 mL FINDINGS: CT angiography neck: There is no significant plaquing in the visualized aortic arch which is mildly ectatic. There is a classic orientation of the great vessels from the aortic arch. There are no significant stenoses in the innominate or proximal subclavian arteries. The cervical left carotid circulation is patent. There is no significant stenosis in the cervical left carotid circulation. The cervical right carotid circulation is patent. There is nosignificant stenosis in the cervical right carotid circulation. There are 2 vertebral arteries. The left vertebral artery is slightly larger than the right. There are no significant stenoses in the cervical vertebral arteries. There are some focal areas of mild narrowing in theV2 segment of the right vertebral artery in the regions of the foramina transversaria. CT angiography head: The intracranial carotid arteries are patent. There is mild calcified plaquing in the cavernous portions of both internal carotid arteries.There is no significant stenosis in the intracranial internal carotidarteries. There are no significant stenoses in the intracranial vertebralarteries. There is a small fenestration in the inferior aspect of the basilarartery. There are no significant stenoses in the basilar artery. There is enhancement of the anterior, middle, and posterior cerebral arteries without significant stenosis or definite large vesselocclusion. There is enhancement of the major dural venous sinuses. Non angiographic findings: The sella turcica is mildly enlarged with 2 enteric parenchyma itsinferior aspect consistent with a partially empty sella. 5Minimal mucous membrane thickening is present in the ethmoid sinuses. Dental caries are present characterized by cavities and multiple periapical lucencies. There issome soft tissue thickening in the posterior nasopharynx suggestive ofprominent adenoids. There are degenerative changes in the cervical spine there is spondylosis at all levels from C3 through C7. There are small associated central disc protrusions at C3-4 and C4-5 with moderate canal narrowing.At C5-6 there is a partially calcified central/left paracentral disc protrusion producing severe canal narrowing possibly cord impingement.At C6-7 there is an associated partially calcified central disc protrusion with mild canal narrowing. There are no confluent infiltrates in theupper lungs. There is an enlarged upper mediastinal lymph nodes to the rightof the trachea measuring 22 mm in long axis and 14 mm in short axis. IMPRESSION: No significant stenosis in the cervical circulation. No significant stenosis or definite large vessel occlusion in the intracranial circulation. There is mild calcified plaquing in thecavernous internal carotid arteries bilaterally. 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 Enlarged mediastinal lymph node to the right of the trachea measuring 22mm in long axis and 14 mm in short axis. Exact determination of the oflymph node enlargement enlargement cannot made on the basis of this study. Follow-up CT imaging of the chest is recommended for further evaluation. Degenerative changes in cervical spine with multilevel spondylosis anddisc protrusions. Severe canal narrowing and likely cord impingement orproduced at C5-6 with moderate canal narrowing at C3 at C4-5. Clinicalcorrelation is recommended. Consider follow-up cervical MR imaging. Findings suggestive of prominent adenoids. Clinical correlation recommended. Dental caries. > Interpreting Provider: Jarett Nicholson MD on 07/19/2023 2:43 PM Andreas Patel MD CT ORDERABLES * CT BRAIN STROKE (07/19/2023 1:58 PM ELECTRICIAN UNDERGROUND) Anatomical Region Laterality Modality Head Computed Tomogra phy 07/19/2023 2:04 PM ELECTRICIAN UNDERGROUND Impressions 07/19/2023 2:12 PM ELECTRICIAN UNDERGROUND IMPRESSION: No intracranial hemorrhage or other acute abnormality by CT. Patchy decreased attenuation within the white matter of the cerebral hemispheres. This is nonspecific but may be seen in the setting of small vessel disease. Clinical correlation recommended. Results discussed with the stroke resident, Dr. Sujatha Woo, on 19 July 2023 approximately 1405 hours. > Interpreting Provider: Jarett Nicholson MD on 07/19/2023 2:12 PM Narrative 07/19/2023 2:12 PM ELECTRICIAN UNDERGROUND PROCEDURE: CT BRAIN STROKE DATE/TIME OF EXAM: 07/19/2023 1:56 PM CLINICAL INFORMATION: None relevant/not provided if blank. Indication: R53.1: Right sided weakness Additional History: COMPARISON: None. TECHNIQUE: Noncontrast CT brain was performed utilizing standard protocol. CT dose reduction technique was used, including Automated Exposure Control. FINDINGS: There is no evidence of acute intracranial hemorrhage, mass effect, or midline shift. The ventricles and sulci are within normal limits in size. Lee-white matter differentiation is preserved. There is some patchy decreased attenuation within the white matter of the cerebral hemispheres. Bone window images are negative for depressed skull fracture. Procedure Note Jarett Nicholson MD - 07/19/2023 PROCEDURE: CT BRAIN STROKE DATE/TIME OF EXAM: 07/19/2023 1:56 PM CLINICAL INFORMATION: None relevant/not provided if blank. Indication: R53.1: Right sided weakness Additional History: COMPARISON: None. TECHNIQUE: Noncontrast CT brain was performed utilizing standard protocol. CT dose reduction technique was used, including Automated ExposureControl. FINDINGS: There is no evidence of acute intracranial hemorrhage, mass effect, or midline shift. The ventricles and sulci are within normal limits in size. Lee-white matter differentiation is preserved. There is some patchy decreased attenuation within the white matter of the cerebralhemispheres. Bone window images are negative for depressed skull fracture. IMPRESSION: No intracranial hemorrhage or other acute abnormality by CT. Patchy decreased attenuation within the white matter of the cerebral hemispheres. This is nonspecific but may be seen in the setting of small vessel disease. Clinical correlation recommended. Results discussed with the stroke resident, Dr. Sujatha Woo, on 19 July 2023 approximately 1405 hours. > Interpreting Provider: Jarett Nicholson MD on 07/19/2023 2:12 PM Andreas Patel MD CT ORDERABLES * XR ELBOW 3+ VW RIGHT (11/14/2009 1:13 PM CDT) Anatomical Region Laterality Modality Upper Extremity Radiographic Safia ging 11/14/2009 2:17 PM CDT Impressions 11/14/2009 2:26 PM CDT 1. Joint effusion but no fracture. 2. Multiple spurs. Narrative 11/14/2009 2:26 PM CDT RIGHT ELBOW, THREE VIEWS DATE: 11/14/2009. INDICATION: Pain after injury. FINDINGS: The posterior fat pad is elevated indicating a joint effusion. However, there is no fracture or dislocation. A moderate traction osteophyte is noted at the olecranon and spurs also arise from the lateral epicondyle and proximal radius. Procedure Note Aidan Skinner MD - 11/14/2009 RIGHT ELBOW, THREE VIEWS DATE: 11/14/2009. INDICATION: Pain after injury. FINDINGS: The posterior fat pad is elevated indicating a joint effusion. However, there is no fracture or dislocation. A moderate traction osteophyte is noted at the olecranon and spurs also arise from the lateral epicondyle and proximal radius. IMPRESSION 1. Joint effusion but no fracture. 2. Multiple spurs. Michael Baires MD DIAGNOSTIC IMAGING O RDERABLES Care Teams Supervisor [employer] Relationship Specialty Start Date End Date Erika Kimble PA [address] [place] [id number] PCP - General Physician Blockmason 11/26/23
--- OUTSIDE RECORDS SUMMARY | 2024-10-15 05:16 | XMS_ITS | Referral Summary ---
Author Organization [facility] Address [address] [place] [address] Care Team Providers Care Dominatrix Name Role Phone Erika Kimble Primary Care Pr ovider Source Comments [facility],non-owned Affiliates and Associated Physician Practices is amultiple site organization consisting of ambulatory clinics and hospital sitesin [place], [place], [place] and [place]. This disclosure is being madepursuant to the Care Everywhere program and may not contain all information available regarding this patient. Last updated 18.[facility] Encounters Date Type Department Care Team Description 10/14/2024 10:07 PM ROLL PICKER - 10/14/2024 10:08 PM [facility] Emergency [facility] [address] [place] [id number] Fall, initial encounter Discharge Disposition: Left Against Medical Advice/Discontinued Care 10/14/2024 9:00 AM ROLL PICKER Procedure visit [facility] - Neurology [address] [facility], [place] [address] Sukh Michaud MD Muscle spasticity 10/01/2024 Refill [facility] - Cardiology [address] [facility], [facility] [address] [place] [address] Janessa Rivera PA Refill Request from Last 3 Months Allergies No known active allergies Medications * Be aware that medications may not be up to date on this document. Alwaysverify current medications with the patient. Medication Sig Dispensed Refills Start Date End Date Status aspirin (Aspirin) 81 MG chew tabletIndications: Cerebrovascular accident (CVA) due to other mechanism (HCC) Take 1 (one) tablet by mouth once daily 30 tablet 11 08/15/2023 Active atorvastatin (Lipitor) 40 MG tabletIndications: Cerebrovascular accident (CVA) due to other mechanism (HCC) Take 1 (one) tablet by mouth at bedtime 30 tablet 11 08/15/2023 Active FLUoxetine (PROzac) 20 MG capsuleIndications :Cerebrovascular accident (CVA) due to other mechanism (HCC) Take 1 (one) capsule by mouth once daily 30 capsule 2 09/11/2023 Active Additional Information Patient not taking.Reported on 07/11/2024 metFORMIN (Glucophage) 500 MG tabletIndications: Type 2 diabetes mellitus without complication, without long-term current use of insulin (HCC) Take 1 (one) tablet by mouth 2 times daily with morning and evening meal 60 tablet 2 09/11/2023 Active amLODIPine (Norvasc) 10 MG tabletIndications: Primary hypertension Take 1 (one) tablet by mouth once daily 90 tablet 3 10/11/2023 Active furosemide (Lasix) 20 MG tabletIndications: Primary hypertension Take 1 (one) tablet by mouth once daily 90 tablet 3 10/11/2023 Active spironolactone (Aldactone) 25 MG tabletIndications: Primary hypertension Take 1 (one) tablet by mouth once daily 90 tablet 3 10/11/2023 Active valsartan (Diovan) 40 MG tabletIndications: Primary hypertension Take 1 (one) tablet by mouth 2 times daily 180 tablet 3 10/11/2023 Active baclofen (Lioresal) 10 MG tablet Take 0.5 (one-half) tablet by mouth 3 times daily May cause drowsiness. 45 tablet 5 11/07/2023 Active carvedilol (Coreg) 6.25 MG tablet TAKE 1 TABLET BY MOUTH TWICE DAILY WITH MORNING MEAL AND WITH EVENING MEAL 180 tablet 10/10/2024 Active clindamycin (Cleocin) 300 MG capsule TAKE 1 CAPSULE BY MOUTH EVERY 6 HOURS Active botulinum toxin type A 100 units/1 ml (Botox) 100 UNIT injectionIndicatio ns:Muscle Spasticity Inject 5 mL into muscle Every 90 days for 90 days Reasons: Muscle Spasticity 5 mL 3 10/14/2024 Active carvedilol (Coreg) 12.5 MG tablet Take 1 tablet twice a day by oral route. 02/20/2024 5 Discontinue d(Clinical Decision) botulinum toxin type A 100 units/1 ml (Botox) 100 UNIT injectionIndicatio ns:Muscle Spasticity Inject 5 mL into muscle Every 90 days for 90 days Reasons: Muscle Spasticity 5 mL 3 07/11/2024 5 Discontinue d(Clinical Decision) Hospital, Clinic, or Other Facility Administered Medication Ordered Dose Route Frequency Start Date End Date Status onabotulinumtoxin A (BOTOX) injection 500 UnitsIndications:Muscle Spasticity 500 Units IM ONCE 10/14/2024 10/14/2024 Ended Active Problems Problem Noted Date Diagnosed Date Depression 07/22/2023 HFrEF (heart failure with reduced ejection fract ion) 07/22/2023 Dysarthria 07/19/2023 Facial droop 07/19/2023 Hypoxia 07/19/2023 Right sided weakness 07/19/2023 Essential hypertension 07/19/2023 Closed dislocation of elbow 11/14/2009 Overview (06/03/2015): Resolved Problems Problem Noted Date Diagnosed Date [...] Recorded Patient Health Questionnaire-2 Score 1 07/22/2023 [place] [employer] [facility] - Occupational Stress Questionnaire Answer Date Recorded [...] place to sleep or slept in a mcc (including now)? No 07/20/2023 Sex and Gender Information Value Date Recorded Sex Assigned at Not on file Gender Identity Not on file Sexual Orientation Not on file Last Filed Vital Signs Vital Sign Reading Time Taken Comments Blood Pressure 179/77 10/14/2024 3:08 PM ROLL PICKER Pulse 69 10/14/2024 3:08 PM ROLL PICKER Temperature 36.8 C (98.2 F) 10/14/2024 11:39 AM ROLL PICKER Respiratory Rate 18 10/14/2024 3:08 PM ROLL PICKER Oxygen Saturation 98% 10/14/2024 3:08 PM ROLL PICKER Inhaled Oxygen Concentration - - Weight 128.4 kg (283 lb 1.1 oz) 025 11:39 AM ROLL PICKER Height 190.5 cm (6' 3 ) 10/14/2024 11:3 9 AM ROLL PICKER Body Mass Index 35.38 10/14/2024 11:39 AM ROLL PICKER Functional Status Functional Status Response Date of Assess ment Is person deaf or have serious hearing difficult y? No 07/19/2023 Is person blind or have serious difficulty seein g? No 07/19/2023 Does person have serious dif ficulty walking/climbing stairs? No 07/19/2023 Does person have difficulty dressing/bathing? No 07/19/2023 Does person have difficulty doing errands alone? No 07/19/2023 Cognitive Status Response Date of Assessm ent Does person have difficulty concentrating/remembering/making decisions? No 07/19/2023 Plan of Treatment Upcoming Encounters Date Type Department Care Team (Late st Contact Info) Description 11/18/2024 3:30 PM CDT Office Visit [facility] - Cardiology [address] [facility], [facility] [address] [place] [address] Isidro Bellamy MD [address] [facility] CARDIOVASCULAR [place] [address] 01/13/2025 9:00 AM CDT Procedure visit [facility] - Neurology [address] [place] [address], [place] [address] Sukh Michaud MD [address] [facility] 1L [place] [address] 04/14/2025 9:00 AM CDT Procedure visit [facility] - Neurology [address] [place] [address] Sukh Michaud MD [address] [facility] [address] [place] [address] Procedures Procedure Name Priority Date/Time Associated Diagnosis Comments CT LUMBAR SPINE WO CONTRAST STAT 10/14/2024 2:28 PM ROLL PICKER Fall, initial encounter CT THORACIC SPINE WO CONTRAST STAT 10/14/2024 2:28 PM ROLL PICKER Fall, initial encounter CT CERVICAL SPINE WO CONTRAST STAT 10/14/2024 2:28 PM ROLL PICKER Fall, initial encounter URINALYSIS W/MICROSCOPIC NO CULTURE STAT 10/14/2024 1:50 PM ROLL PICKER LA CHEMODENERV 1 EXTREM 5/> MUS Routine 10/14/2024 12:18 PM ROLL PICKER Muscle spasticity LA NDL EMG GDN CONJUNCT CHEMODNRVTJ Routine 10/14/2024 12:18 PM ROLL PICKER Muscle spasticity BASIC METABOLIC PANEL (CALCIUM TOTAL) 10/24/2023 8:00 AM ROLL PICKER HEPATITIS C AB SCREEN RFLX NAAT QUANT Routine 07/22/2023 7:10 AM ROLL PICKER HIV-1 HIV-2 ANTIBODY + HIV P24 AG PANEL Routine 07/22/2023 7:10 AM ROLL PICKER from Last 3 Months or Most Recently Relevant to Health Maintenance Results * CT Lumbar Spine Wo Contrast (10/14/2024 2:28 PM ROLL PICKER) Anatomical Region Laterality Modality Spine Computed Tomogra phy 10/14/2024 3:12 PM ROLL PICKER Impressions 10/14/2024 4:00 PM ROLL PICKER IMPRESSION: Motion degraded study, worst at the mid cervical spine. 1.No CT evidence of acute fracture in the cervical, thoracic, or lumbar spine. 2.Severe cervical spinal canal stenosis, worst at C5-6. 3.Moderate lumbar spinal canal stenosis. > Dictated by Tomi Cheney D.O. - Diagnostic Sulfuric Acid Plant Supervisor. I, Mk Wellington MD have personally reviewed and interpreted this examination/study. > Interpreting Provider: Mk Wellington MD on 10/14/2024 4:00 PM Narrative 10/14/2024 4:00 PM ROLL PICKER PROCEDURE: CT CERVICAL SPINE WO CONTRAST, CT THORACIC SPINE WO CONTRAST, CT LUMBAR SPINE WO CONTRAST, DATE/TIME OF EXAM: 10/14/2024 2:37 PM, LOCATION [facility] INDICATION: W19.XXXA: Fall, initial encounter EXAMINATION: 1.CT of the cervical spine without contrast 2.CT of the thoracic spine without contrast 3.CT of the lumbar spine without contrast ADDITIONAL CLINICAL INFORMATION: Ordering Provider Reason For Exam: r/o worsening stenosis, fx, misalignment (accession [id number]), r/o fx, stenosis, misalignment (accession [id number]), r/o fx, misalignment, stenosis, ddd, other (accession [id number]) Technologist Note: Additional: TECHNIQUE: CT of the [...] DATE/TIME OF EXAM: 10/14/2024 2:37 PM, LOCATION [facility] INDICATION: W19.XXXA: Fall, initial encounter EXAMINATION: 1.CT of the cervical spine without contrast 2.CT of the thoracic spine without contrast 3.CT of the lumbar spine without contrast ADDITIONAL CLINICAL INFORMATION: Ordering Provider Reason For Exam: r/o worsening stenosis, fx, misalignment (accession [id number]), r/o fx, stenosis, misalignment (accession [id number]), r/o fx, misalignment, stenosis, ddd, other (accession [id number]) Technologist Note: Additional: TECHNIQUE: CT of the [...] Dictated by Tomi Cheney D.O. - Diagnostic Sulfuric Acid Plant Supervisor. Mk French MD have personally reviewed and interpreted this examination/study. > Interpreting Provider: Mk Wellington MD on 10/14/2024 4:00 PM Domonique Jenniferarturo Matthews FINE GRADE OPERATOR-TORCH SHEARER CT ORDERABLE S * CT Thoracic Spine Wo Contrast (10/14/2024 2:28 PM ROLL PICKER) Anatomical Region Laterality Modality Spine Computed Tomogra phy 10/14/2024 3:12 PM ROLL PICKER Impressions 10/14/2024 4:00 PM ROLL PICKER IMPRESSION: Motion degraded study, worst at the mid cervical spine. 1.No CT evidence of acute fracture in the cervical, thoracic, or lumbar spine. 2.Severe cervical spinal canal stenosis, worst at C5-6. 3.Moderate lumbar spinal canal stenosis. > Dictated by Tomi Cheney D.O. - Diagnostic Sulfuric Acid Plant Supervisor. Mk French MD have personally reviewed and interpreted this examination/study. > Interpreting Provider: Mk Wellington MD on 10/14/2024 4:00 PM Narrative 10/14/2024 4:00 PM ROLL PICKER PROCEDURE: CT CERVICAL SPINE WO CONTRAST, CT THORACIC SPINE WO CONTRAST, CT LUMBAR SPINE WO CONTRAST, DATE/TIME OF EXAM: 10/14/2024 2:37 PM, LOCATION [facility] INDICATION: W19.XXXA: Fall, initial encounter EXAMINATION: 1.CT of the cervical spine without contrast 2.CT of the thoracic spine without contrast 3.CT of the lumbar spine without contrast ADDITIONAL CLINICAL INFORMATION: Ordering Provider Reason For Exam: r/o worsening stenosis, fx, misalignment (accession [id number]), r/o fx, stenosis, misalignment (accession [id number]), r/o fx, misalignment, stenosis, ddd, other (accession [id number]) Technologist Note: Additional: TECHNIQUE: CT of the [...] DATE/TIME OF EXAM: 10/14/2024 2:37 PM, LOCATION [facility] INDICATION: W19.XXXA: Fall, initial encounter EXAMINATION: 1.CT of the cervical spine without contrast 2.CT of the thoracic spine without contrast 3.CT of the lumbar spine without contrast ADDITIONAL CLINICAL INFORMATION: Ordering Provider Reason For Exam: r/o worsening stenosis, fx, misalignment (accession [id number]), r/o fx, stenosis, misalignment (accession [id number]), r/o fx, misalignment, stenosis, ddd, other (accession [id number]) Technologist Note: Additional: TECHNIQUE: CT of the [...] Dictated by Tomi Cheney D.O. - Diagnostic Sulfuric Acid Plant Supervisor. I, Mk Wellington MD have personally reviewed and interpreted this examination/study. > Interpreting Provider: Mk Wellington MD on 10/14/2024 4:00 PM Domonique Matthews FINE GRADE OPERATOR-TORCH SHEARER CT ORDERABLE S * CT Cervical Spine Wo Contrast (10/14/2024 2:28 PM ROLL PICKER) Anatomical Region Laterality Modality Spine Computed Tomogra phy 10/14/2024 3:12 PM ROLL PICKER Impressions 10/14/2024 4:00 PM ROLL PICKER IMPRESSION: Motion degraded study, worst at the mid cervical spine. 1.No CT evidence of acute fracture in the cervical, thoracic, or lumbar spine. 2.Severe cervical spinal canal stenosis, worst at C5-6. 3.Moderate lumbar spinal canal stenosis. > Dictated by Tomi Cheney D.O. - Diagnostic Sulfuric Acid Plant Supervisor. I, Mk Wellington MD have personally reviewed and interpreted this examination/study. > Interpreting Provider: Mk Wellington MD on 10/14/2024 4:00 PM Narrative 10/14/2024 4:00 PM ROLL PICKER PROCEDURE: CT CERVICAL SPINE WO CONTRAST, CT THORACIC SPINE WO CONTRAST, CT LUMBAR SPINE WO CONTRAST, DATE/TIME OF EXAM: 10/14/2024 2:37 PM, LOCATION [facility] INDICATION: W19.XXXA: Fall, initial encounter EXAMINATION: 1.CT of the cervical spine without contrast 2.CT of the thoracic spine without contrast 3.CT of the lumbar spine without contrast ADDITIONAL CLINICAL INFORMATION: Ordering Provider Reason For Exam: r/o worsening stenosis, fx, misalignment (accession [id number]), r/o fx, stenosis, misalignment (accession [id number]), r/o fx, misalignment, stenosis, ddd, other (accession [id number]) Technologist Note: Additional: TECHNIQUE: CT of the [...] DATE/TIME OF EXAM: 10/14/2024 2:37 PM, LOCATION [facility] INDICATION: W19.XXXA: Fall, initial encounter EXAMINATION: 1.CT of the cervical spine without contrast 2.CT of the thoracic spine without contrast 3.CT of the lumbar spine without contrast ADDITIONAL CLINICAL INFORMATION: Ordering Provider Reason For Exam: r/o worsening stenosis, fx, misalignment (accession [id number]), r/o fx, stenosis, misalignment (accession [id number]), r/o fx, misalignment, stenosis, ddd, other (accession [id number]) Technologist Note: Additional: TECHNIQUE: CT of the [...] Dictated by Tomi Cheney D.O. - Diagnostic Sulfuric Acid Plant Supervisor. I, Mk Wellington MD have personally reviewed and interpreted this examination/study. > Interpreting Provider: Mk Wellington MD on 10/14/2024 4:00 PM Domonique Matthews FINE GRADE OPERATOR-TORCH SHEARER CT ORDERABLE S * (ABNORMAL) URINALYSIS W/MICROSCOPIC NO CULTURE (10/14/2024 1:50 PM ROLL PICKER) Color UA Yellow Straw, Yellow 10/14/2024 2:17 PM ROLL PICKER [facility] Clarity UA Clear Clear 10/14/2024 2:17 PM [facility] Specific [place] UA 1.011 1.005 - 1.030 10/14/2024 2:17 PM [facility] pH UA 6.0 5.0 - 8.0 pH 10/14/2024 2:17 PM [facility] Protein UA Negative Negative 10/14/2024 2:17 PM [facility] Glucose UA Negative Negative 10/14/2024 2:17 PM [facility] Ketone UA Negative Negative 10/14/2024 2:17 PM [facility] Bilirubin UA Negative Negative 10/14/2024 2:17 PM [facility] Blood UA Negative Negative 10/14/2024 2:17 PM [facility] Nitrite UA Negative Negative 10/14/2024 2:17 PM [facility] Leukocyte Esterase Trace(A) Negative 10/14/2024 2:17 PM [facility] Urobilinogen UA Negative Negative mg/dL 10/14/2024 2:17 PM [facility] RBC UA 3-5 None Seen, 0-2, 3-5 /HPF 10/14/2024 2:17 PM [facility] WBC UA 0-5 None Seen, 0-5 /HPF 10/14/2024 2:17 PM [facility] Squamous Epithelial Cells UA None Seen None Seen, 0-2, 3-5 /HPF 10/14/2024 2:17 PM [facility] Urine URINE SPECIMEN OBTAINED BY CLEAN CATCH PROCEDURE / Unknown Collection / Unknown 10/14/2024 1:50 PM ROLL PICKER 10/14/2024 1:59 PM ROLL PICKER Narrative [facility] - 10/14/2024 2:17 PM ROLL PICKER Emre Moore MD LAB - URINALYSIS ORD ERABLES [address] [address], [facility] [phone] * LA NDL EMG GDN CONJUNCT CHEMODNRVTJ, LA CHEMODENERV 1 EXTREM 5/> MUS (10/14/2024 12:18 PM ROLL PICKER) Narrative Sukh Michaud MD - 10/14/2024 12:18 PM ROLL PICKER Sukh Michaud MD 10/14/2024 12:19 PM See procedure note for documentation. Sukh Michaud MD PROCEDURE/MINOR SURG ICAL ORDERABLES * (ABNORMAL) BASIC METABOLIC PANEL (CALCIUM TOTAL) (10/24/2023 8:00 AM ROLL PICKER) Glucose 135(H) 70 - 99 mg/dL [facility] [...] [facility] INSURANCE BILL Comment:FASTING 10/24/2023 8:00 AM ROLL PICKER 10/24/2023 Narrative [facility] INSURANCE BILL - 10/25/2023 3:08 AM ROLL PICKER A courtesy copy of this report has been sent to [phone] Resulting Agency Comment Lab Testing performed at[facility] [address] [facility] [phone] Janessa THORNTON LAB - CHEMISTRY [place] [facility] INSURANCE BILL [address] [place] [address] * HEPATITIS C AB SCREEN RFLX NAAT QUANT (07/22/2023 7:10 AM ROLL PICKER) Hepatitis C Antibody Non-react jonelle Non-reac tive 07/22/2023 8:31 AM ROLL PICKER [facility] Comment:Hepatitis C Antibody screen indicates no serologic evidence of past or current infection with Hepatitis C Virus. Patients with unexplained liver disease who are immunocompromised or suspected of having acute Hepatitis C infection may benefit from Nucleic Acid Test (BARRY) for Hepatitis C Viral RNA to confirm Hepatitis C status. Blood BLOOD SPECIMEN / Unknown Lab Venipuncture / Unknown 07/22/2023 7:10 AM ROLL PICKER 07/22/2023 7:51 AM ROLL PICKER Landry Rivera MD LAB - CHEMISTRY [place] [address] [address], [place] [phone] * HIV-1 HIV-2 ANTIBODY + HIV P24 AG PANEL (07/22/2023 7:10 AM ROLL PICKER) HIV Antigen/Antibod y 1 & 2 Non-reacti ve Non-react jonelle 07/22/2023 8:31 AM ROLL PICKER [facility] Comment:No Laboratory eviden ce of HIV infection. Blood BLOOD SPECIMEN / Unknown Lab Venipuncture / Unknown 07/22/2023 7:10 AM ROLL PICKER 07/22/2023 7:51 AM ROLL PICKER Landry Rivera MD LAB - CHEMISTRY [place] Performing Organization Address City/[facility]/ZIP Co de Phone Number [address] [address], [place] [phone] from Last 3 Months or Most Recently Relevant to Health Maintenance Advance Directives * Full Code (Latest Code Status on File) Date Activated Date Inactivated Comments 10/26/2023 1:01 PM 10/26/2023 4:45 PM * Full Code Date Activated Date Inactivated Comments 07/19/2023 2:36 PM 07/24/2023 8:44 PM Care Teams Dominatrix Relationship Specialty Start Date End Date Erika Kimble PA [address] [place] [address] PCP - General Physician Piecer 11/26/23
--- OUTSIDE RECORDS SUMMARY | 2024-10-15 05:16 | XMS_ITS | Clinical Summary ---
Author Organization [facility] Address [address] [place] [address] Care Team Providers Care Director Mobile Name Role Phone Erika Kimble Primary Care Pr ovider Source Comments [facility],non-owned Affiliates and Associated Physician Practices is amultiple site organization consisting of ambulatory clinics and hospital sitesin [place], [place], [place] and [place]. This disclosure is being madepursuant to the Care Everywhere program and may not contain all information available regarding this patient. Last updated 18.[facility] Allergies No known active allergies Medications * [...] Reasons: Muscle Spasticity 5 mL 3 10/14/2024 5 Active carvedilol (Coreg) 12.5 MG tablet Take [...] Resolved Date Cardiomyopathy, idiopathic 10/26/2023 0 04/01/2024 Encounters Date Type Department Care Team Description 10/14/2024 10:07 PM [facility] - 10/14/2024 10:08 PM [facility] Emergency [facility] [address] [place] [address] Fall, initial encounter Discharge Disposition: Left Against Medical Advice/Discontinued Care 10/14/2024 9:00 AM [facility] Procedure visit [facility] - Neurology [address] [facility] [place] [address] Sukh Michaud MD Muscle spasticity 10/01/2024 Refill [facility] - Cardiology [address] [facility], [facility] [address] [place] [address] Janessa Rivera PA Refill Request from Last 3 Months Family History Medical History Relation Name Comments CAD (Coronary Artery Disease) Father Diabetes Father Cancer Mother Relation Name Status Comments Father Mother Social History Tobacco Use Types Packs/Day Years [...] Recorded Patient Health Questionnaire-2 Score 1 07/22/2023 [facility] - Occupational Stress [...] place to sleep or slept in a fci (including now)? No 07/20/2023 Sex and Gender Information Value Date Recorded Sex Assigned at Not on file Gender Identity Not on file Sexual Orientation Not on file Last Filed Vital Signs Vital Sign Reading Time Taken Comments Blood Pressure 179/77 10/14/2024 3:08 PM [facility] Pulse 69 10/14/2024 3:08 PM [facility] Temperature 36.8 C (98.2 F) 10/14/2024 11:39 AM [facility] Respiratory Rate 18 10/14/2024 3:08 PM [facility] Oxygen Saturation 98% 10/14/2024 3:08 PM [facility] Inhaled Oxygen Concentration - - Weight 128.4 kg (283 lb 1.1 oz) 025 11:39 AM [facility] Height 190.5 cm (6' 3 ) 10/14/2024 11:3 9 AM [facility] Body Mass Index 35.38 10/14/2024 11:39 AM [facility] Plan of Treatment Upcoming Encounters Date Type Department Care Team (Late st Contact Info) Description 11/18/2024 3:30 PM CDT Office Visit [facility] - Cardiology [address], [address] [place] [address] Isidro Bellamy MD [address] [facility] [place] [address] 01/13/2025 9:00 AM CDT Procedure visit [facility] - Neurology [address] [facility], [place] [address] Sukh Michaud MD [address] [facility] [address] [place] [address] 04/14/2025 9:00 AM CDT Procedure visit [facility] - Neurology [address] [facility], [place] [address] Sukh Michaud MD [address] [facility] [address] [place] [address] Health Maintenance Due Date Last Done Comments COLOGUARD (AGES 45-75) - COLON CA SCREENING 1969 COLON MONITORING 1969 COLONOSCOPY - COLON CA SCREENING 1969 CT COLONOGRAPHY - COLON CA SCREENING 1969 Colorectal Cancer Screening 1969 FIT - COLON CA SCREENING 1969 FLEX SIG - COLON CA SCREENING 1969 DTAP/TDAP/TD VACCINES (1 - Tdap) 1988 HEPATITIS B VACCINE (1 of 3 - 19+ 3-dose series) 1988 PNEUMOCOCCAL VACCINE 50+ (1 of 2 - PCV) 1988 ZOSTER VACCINE (1 of 2) 2019 COVID-19 VACCINE ( - season) 2024 09/14/2021, 11/20/2020, 10/23/2020 DEPRESSION SCREENING 09/03/2024 07/19/2023 SCREENING FOR DIABETES 10/24/2026 , 08/15/2023, 07/24/2023, Additional history exists HEPATITIS C SCREENING Completed 07/22/2023 HIV SCREENING Completed 07/22/2023 INFLUENZA VACCINE Completed 07/04/2024, , 08/10/2020, Additional history exists HIB VACCINE Aged Out No longer eligi ble based on patient's age to complete this topic HPV VACCINE Aged Out No longer eligi ble based on patient's age to complete this topic MENINGOCOCCAL (Group B) VACCINE Aged Out No longer eligible based on patient's age to complete this topic MENINGOCOCCAL VACCINE Aged Out No dante akua eligible based on patient's age to complete this topic Procedures Procedure Name Priority Date/Time Associated Diagnosis Comments CT LUMBAR SPINE WO CONTRAST STAT 10/14/2024 2:28 PM [facility] Fall, initial encounter CT THORACIC SPINE WO CONTRAST STAT 10/14/2024 2:28 PM [facility] Fall, initial encounter CT CERVICAL SPINE WO CONTRAST STAT 10/14/2024 2:28 PM [facility] Fall, initial encounter URINALYSIS W/MICROSCOPIC NO CULTURE STAT 10/14/2024 1:50 PM [facility] DE CHEMODENERV 1 EXTREM 5/> MUS Routine 10/14/2024 12:18 PM [facility] Muscle spasticity DE NDL EMG GDN CONJUNCT CHEMODNRVTJ Routine 10/14/2024 12:18 PM [facility] Muscle spasticity BASIC METABOLIC PANEL (CALCIUM TOTAL) 10/24/2023 8:00 AM [facility] HEPATITIS C AB SCREEN RFLX NAAT QUANT Routine 07/22/2023 7:10 AM [facility] HIV-1 HIV-2 ANTIBODY + HIV P24 AG PANEL Routine 07/22/2023 7:10 AM [facility] from Last 3 Months or Most Recently Relevant to Health Maintenance Results * CT Lumbar Spine Wo Contrast (10/14/2024 2:28 PM [facility]) Anatomical Region Laterality Modality Spine Computed Tomogra phy 10/14/2024 3:12 PM [facility] Impressions 10/14/2024 4:00 PM [facility] IMPRESSION: Motion degraded study, worst at the mid cervical spine. 1.No CT evidence of acute fracture in the cervical, thoracic, or lumbar spine. 2.Severe cervical spinal canal stenosis, worst at C5-6. 3.Moderate lumbar spinal canal stenosis. > Dictated by Tomi Cheney D.O. - Diagnostic Clinical Research Technician. I, Mk Wellington MD have personally reviewed and interpreted this examination/study. > Interpreting Provider: Mk Wellington MD on 10/14/2024 4:00 PM Narrative 10/14/2024 4:00 PM [facility] PROCEDURE: CT CERVICAL SPINE WO CONTRAST, CT THORACIC SPINE WO CONTRAST, CT LUMBAR SPINE WO CONTRAST, DATE/TIME OF EXAM: 10/14/2024 2:37 PM, LOCATION [facility] INDICATION: W19.XXXA: Fall, initial encounter EXAMINATION: 1.CT of the cervical spine without contrast 2.CT of the thoracic spine without contrast 3.CT of the lumbar spine without contrast ADDITIONAL CLINICAL INFORMATION: Ordering Provider Reason For Exam: r/o worsening stenosis, fx, misalignment (accession [id number]), r/o fx, stenosis, misalignment (accession [id number]), r/o fx, misalignment, stenosis, ddd, other (accession [id number]) Technologist Note: Additional: TECHNIQUE: CT of the [...] DATE/TIME OF EXAM: 10/14/2024 2:37 PM, LOCATION [facility] INDICATION: W19.XXXA: Fall, initial encounter EXAMINATION: 1.CT of the cervical spine without contrast 2.CT of the thoracic spine without contrast 3.CT of the lumbar spine without contrast ADDITIONAL CLINICAL INFORMATION: Ordering Provider Reason For Exam: r/o worsening stenosis, fx, misalignment (accession [id number]), r/o fx, stenosis, misalignment (accession [id number]), r/o fx, misalignment, stenosis, ddd, other (accession [id number]) Technologist Note: Additional: TECHNIQUE: CT of the [...] Dictated by Tomi Cheney D.O. - Diagnostic Clinical Research Technician. Mk French MD have personally reviewed and interpreted this examination/study. > Interpreting Provider: Mk Wellington MD on 10/14/2024 4:00 PM Domonique Matthews PHOTOGRAPHY AND PRINTS CURATOR-PRODUCTION PLANNING MANAGER CT ORDERABLE S * CT Thoracic Spine Wo Contrast (10/14/2024 2:28 PM [facility]) Anatomical Region Laterality Modality Spine Computed Tomogra phy 10/14/2024 3:12 PM [facility] Impressions 10/14/2024 4:00 PM [facility] IMPRESSION: Motion degraded study, worst at the mid cervical spine. 1.No CT evidence of acute fracture in the cervical, thoracic, or lumbar spine. 2.Severe cervical spinal canal stenosis, worst at C5-6. 3.Moderate lumbar spinal canal stenosis. > Dictated by Tomi Cheney D.O. - Diagnostic Clinical Research Technician. Mk [place] MD have personally reviewed and interpreted this examination/study. > Interpreting Provider: Mk Wellington MD on 10/14/2024 4:00 PM Narrative 10/14/2024 4:00 PM [facility] PROCEDURE: CT CERVICAL SPINE WO CONTRAST, CT THORACIC SPINE WO CONTRAST, CT LUMBAR SPINE WO CONTRAST, DATE/TIME OF EXAM: 10/14/2024 2:37 PM, LOCATION [facility] INDICATION: W19.XXXA: Fall, initial encounter EXAMINATION: 1.CT of the cervical spine without contrast 2.CT of the thoracic spine without contrast 3.CT of the lumbar spine without contrast ADDITIONAL CLINICAL INFORMATION: Ordering Provider Reason For Exam: r/o worsening stenosis, fx, misalignment (accession [id number]), r/o fx, stenosis, misalignment (accession [id number]), r/o fx, misalignment, stenosis, ddd, other (accession [id number]) Technologist Note: Additional: TECHNIQUE: CT of the [...] DATE/TIME OF EXAM: 10/14/2024 2:37 PM, LOCATION [facility] INDICATION: W19.XXXA: Fall, initial encounter EXAMINATION: 1.CT of the cervical spine without contrast 2.CT of the thoracic spine without contrast 3.CT of the lumbar spine without contrast ADDITIONAL CLINICAL INFORMATION: Ordering Provider Reason For Exam: r/o worsening stenosis, fx, misalignment (accession [id number]), r/o fx, stenosis, misalignment (accession [id number]), r/o fx, misalignment, stenosis, ddd, other (accession [id number]) Technologist Note: Additional: TECHNIQUE: CT of the [...] Dictated by Tomi Cheney D.O. - Diagnostic Clinical Research Technician. Mk [place] MD have personally reviewed and interpreted this examination/study. > Interpreting Provider: Mk Wellington MD on 10/14/2024 4:00 PM Domonique Matthews PHOTOGRAPHY AND PRINTS CURATOR-PRODUCTION PLANNING MANAGER CT ORDERABLE S * CT Cervical Spine Wo Contrast (10/14/2024 2:28 PM [facility]) Anatomical Region Laterality Modality Spine Computed Tomogra phy 10/14/2024 3:12 PM [facility] Impressions 10/14/2024 4:00 PM [facility] IMPRESSION: Motion degraded study, worst at the mid cervical spine. 1.No CT evidence of acute fracture in the cervical, thoracic, or lumbar spine. 2.Severe cervical spinal canal stenosis, worst at C5-6. 3.Moderate lumbar spinal canal stenosis. > Dictated by Tomi Cheney D.O. - Diagnostic Clinical Research Technician. Mk [place] MD have personally reviewed and interpreted this examination/study. > Interpreting Provider: Mk Wellington MD on 10/14/2024 4:00 PM Narrative 10/14/2024 4:00 PM [facility] PROCEDURE: CT CERVICAL SPINE WO CONTRAST, CT THORACIC SPINE WO CONTRAST, CT LUMBAR SPINE WO CONTRAST, DATE/TIME OF EXAM: 10/14/2024 2:37 PM, LOCATION [facility] INDICATION: W19.XXXA: Fall, initial encounter EXAMINATION: 1.CT of the cervical spine without contrast 2.CT of the thoracic spine without contrast 3.CT of the lumbar spine without contrast ADDITIONAL CLINICAL INFORMATION: Ordering Provider Reason For Exam: r/o worsening stenosis, fx, misalignment (accession [id number]), r/o fx, stenosis, misalignment (accession [id number]), r/o fx, misalignment, stenosis, ddd, other (accession [id number]) Technologist Note: Additional: TECHNIQUE: CT of the [...] DATE/TIME OF EXAM: 10/14/2024 2:37 PM, LOCATION [facility] INDICATION: W19.XXXA: Fall, initial encounter EXAMINATION: 1.CT of the cervical spine without contrast 2.CT of the thoracic spine without contrast 3.CT of the lumbar spine without contrast ADDITIONAL CLINICAL INFORMATION: Ordering Provider Reason For Exam: r/o worsening stenosis, fx, misalignment (accession [id number]), r/o fx, stenosis, misalignment (accession [id number]), r/o fx, misalignment, stenosis, ddd, other (accession [id number]) Technologist Note: Additional: TECHNIQUE: CT of the [...] Dictated by Tomi Cheney D.O. - Diagnostic Clinical Research Technician. I, Mk Wellington MD have personally reviewed and interpreted this examination/study. > Interpreting Provider: Mk Wellington MD on 10/14/2024 4:00 PM Domonique Matthews PHOTOGRAPHY AND PRINTS CURATOR-PRODUCTION PLANNING MANAGER CT ORDERABLE S * (ABNORMAL) URINALYSIS W/MICROSCOPIC NO CULTURE (10/14/2024 1:50 PM [facility]) Color UA Yellow Straw, Yellow 10/14/2024 2:17 PM [facility] Clarity UA Clear Clear 10/14/2024 2:17 PM [facility] Specific Emerson UA 1.011 1.005 - 1.030 10/14/2024 2:17 PM [facility] pH UA 6.0 5.0 - 8.0 pH 10/14/2024 2:17 PM [facility] Protein UA Negative Negative 10/14/2024 2:17 PM [facility] Glucose UA Negative Negative 10/14/2024 2:17 PM [facility] Ketone UA Negative Negative 10/14/2024 2:17 PM [facility] Bilirubin UA Negative Negative 10/14/2024 2:17 PM [facility] Blood UA Negative Negative 10/14/2024 2:17 PM [facility] Nitrite UA Negative Negative 10/14/2024 2:17 PM [facility] Leukocyte Esterase Trace(A) Negative 10/14/2024 2:17 PM [facility] Urobilinogen UA Negative Negative mg/dL 10/14/2024 2:17 PM [facility] RBC UA 3-5 None Seen, 0-2, 3-5 /HPF 10/14/2024 2:17 PM [facility] WBC UA 0-5 None Seen, 0-5 /HPF 10/14/2024 2:17 PM [facility] Squamous Epithelial Cells UA None Seen None Seen, 0-2, 3-5 /HPF 10/14/2024 2:17 PM [facility] Urine URINE SPECIMEN OBTAINED BY CLEAN CATCH PROCEDURE / Unknown Collection / Unknown 10/14/2024 1:50 PM [facility] 10/14/2024 1:59 PM [facility] Narrative [facility] - 10/14/2024 2:17 PM [facility] Emre Moore MD LAB - URINALYSIS ORD ERABLES [facility] [address] [place] [address], [facility] [phone] * DE NDL EMG GDN CONJUNCT CHEMODNRVTJ, DE CHEMODENERV 1 EXTREM 5/> MUS (10/14/2024 12:18 PM [facility]) Narrative Sukh Michaud MD - 10/14/2024 12:18 PM [facility] Sukh Michaud MD 10/14/2024 12:19 PM See procedure note for documentation. Sukh Michaud MD PROCEDURE/MINOR SURG ICAL ORDERABLES * (ABNORMAL) BASIC METABOLIC PANEL (CALCIUM TOTAL) (10/24/2023 8:00 AM [facility]) Glucose 135(H) 70 - 99 mg/dL [facility] [...] [facility] INSURANCE BILL Comment:FASTING 10/24/2023 8:00 AM [facility] 10/24/2023 Narrative [facility] INSURANCE BILL - 10/25/2023 3:08 AM [facility] A courtesy copy of this report has been sent to [phone] Resulting Agency Comment Lab Testing performed at: [facility] [address] [facility] [id number] Janessa THORNTON LAB - CHEMISTRY [place] [facility] INSURANCE BILL [address] [place] [address] * HEPATITIS C AB SCREEN RFLX NAAT QUANT (07/22/2023 7:10 AM [facility]) Hepatitis C Antibody Non-react jonelle Non-reac tive 07/22/2023 8:31 AM [facility] Comment:Hepatitis C Antibody screen indicates [...] Lab Venipuncture / Unknown 07/22/2023 7:10 AM [facility] 07/22/2023 7:51 AM [facility] Landry Rivera MD LAB - CHEMISTRY [place] [facility] [address] [address], [facility] [phone] * HIV-1 HIV-2 ANTIBODY + HIV P24 AG PANEL (07/22/2023 7:10 AM [facility]) HIV Antigen/Antibod y 1 & 2 Non-reacti ve Non-react jonelle 07/22/2023 8:31 AM [facility] Comment:No Laboratory eviden ce of HIV infection. Blood BLOOD SPECIMEN / Unknown Lab Venipuncture / Unknown 07/22/2023 7:10 AM [facility] 07/22/2023 7:51 AM [facility] Landry Rivera MD LAB - CHEMISTRY [place] [place] Organization Address City/State/ZIP Co de Phone Number [place] [id number] [place] [address], [facility] [phone] from Last 3 Months or Most Recently Relevant to Health Maintenance Advance Directives * Full Code (Latest Code Status on File) Date Activated Date Inactivated Comments 10/26/2023 1:01 PM 10/26/2023 4:45 PM * Full Code Date Activated Date Inactivated Comments 07/19/2023 2:36 PM 07/24/2023 8:44 PM Care Teams Director Mobile Relationship Specialty Start Date End Date Erika Kimble PA [address] [place] [address] PCP - General Physician Fire Extinguisher Installer 11/26/23
--- OUTSIDE RECORDS SUMMARY | 2024-10-15 05:16 | XMS_ITS | Encounter Summary ---
Author Organization [facility] Address [address] [place] [address] Care Team Providers Care Income Tax Investigator Name Role Phone Erika Kimble Primary Care Pr ovider Reason for Visit * Reason Comments Fall [facility]. Pt was seen because he was receiving botox injections. It was mentioned that he also fell and the provider wanted him to be seen. Pt has staff with him. Encounter Details Date Type Department Care Team (Late st Contact Info) Description 10/14/2024 10:07 PM SHANKER OUT - 10/14/2024 10:08 PM [facility] Emergency [facility] [address] [place] [id number] Fall, initial encounter Discharge Disposition: Left Against Medical Advice/Discontinued Care Social History Tobacco Use Types Packs/Day Years Used Date Smoking Tobacco: Light Smoker Cigarettes Smokeless Tobacco: Never Alcohol Use Standard Drinks/Week Comments Not Currently [...] Recorded Patient Health Questionnaire-2 Score 1 07/22/2023 [facility] Range of Occupat ional Health - Occupational Stress [...] place to sleep or slept in a senior care (including now)? No 07/20/2023 Sex and Gender Information Value Date Recorded Sex Assigned at Not on file Gender Identity Not on file Sexual Orientation Not on file documented as of this encounter Last Filed Vital Signs Vital Sign Reading Time Taken Comments Blood Pressure 179/77 10/14/2024 3:08 PM SHANKER OUT Pulse 69 10/14/2024 3:08 PM SHANKER OUT Temperature 36.8 C (98.2 F) 10/14/2024 11:39 AM SHANKER OUT Respiratory Rate 18 10/14/2024 3:08 PM SHANKER OUT Oxygen Saturation 98% 10/14/2024 3:08 PM SHANKER OUT Inhaled Oxygen Concentration - - Weight 128.4 kg (283 lb 1.1 oz) 025 11:39 AM SHANKER OUT Height 190.5 cm (6' 3 ) 10/14/2024 11:3 9 AM SHANKER OUT Body Mass Index 35.38 10/14/2024 11:39 AM SHANKER OUT documented in this encounter Functional Status Functional Status Response Date of [...] person have difficulty concentrating/remembering/making decisions? No 07/19/2023 documented as of this encounter Medications at Time of Discharge Medication Sig Dispensed Refills Start Date End Date amLODIPine (Norvasc) 10 MG tabletIndications:Prim polly hypertension Take 1 (one) tablet by mouth once daily 90 tablet 3 10/11/2023 aspirin (Aspirin) 81 MG chew tabletIndications:Cere brovascular accident (CVA) due to other mechanism (HCC) Take 1 (one) tablet by mouth once daily 30 tablet 11 08/15/2023 atorvastatin (Lipitor) 40 MG tabletIndications:Cere brovascular accident (CVA) due to other mechanism (HCC) Take 1 (one) tablet by mouth at bedtime 30 tablet 11 08/15/2023 baclofen (Lioresal) 10 MG tablet Take 0.5 (one-half) tablet by mouth 3 times daily May cause drowsiness. 45 tablet 5 11/07/2023 botulinum toxin type A 100 units/1 ml (Botox) 100 UNIT injectionIndications:M uscle Spasticity Inject 5 mL into muscle Every 90 days for 90 days Reasons: Muscle Spasticity 5 mL 3 10/14/2024 01/12/2025 carvedilol (Coreg) 6.25 MG tablet TAKE 1 TABLET BY MOUTH TWICE DAILY WITH MORNING MEAL AND WITH EVENING MEAL 180 tablet 10/10/2024 clindamycin (Cleocin) 300 MG capsule TAKE 1 CAPSULE BY MOUTH EVERY 6 HOURS FLUoxetine (PROzac) 20 MG capsuleIndications:Cer ebrovascular accident (CVA) due to other mechanism (HCC) Take 1 (one) capsule by mouth once daily 30 capsule 2 09/11/2023 furosemide (Lasix) 20 MG tabletIndications:Prim polly hypertension Take 1 (one) tablet by mouth once daily 90 tablet 3 10/11/2023 metFORMIN (Glucophage) 500 MG tabletIndications:Type 2 diabetes mellitus without complication, without long-term current use of insulin (HCC) Take 1 (one) tablet by mouth 2 times daily with morning and evening meal 60 tablet 2 09/11/2023 spironolactone (Aldactone) 25 MG tabletIndications:Prim polly hypertension Take 1 (one) tablet by mouth once daily 90 tablet 3 10/11/2023 valsartan (Diovan) 40 MG tabletIndications:Prim polly hypertension Take 1 (one) tablet by mouth 2 times daily 180 tablet 3 10/11/2023 documented as of this encounter ED Notes * Yanira Khan - 10/14/2024 9:33 PM CST Pt called x3 no answer. KER OUT * Yanira Khan - 10/14/2024 7:29 PM CST PT CALLED X2 NO ANSWER. KER OUT * Marla Hensley - 10/14/2024 6:24 PM CST Call x1 no answer. KER OUT * Marla Hensley - 10/14/2024 3:06 PM CST Patient continues to wait in att. KER OUT * Domonique Matthews APRN-CNP - 10/14/2024 1:10 PM CST Medical Screening Exam 10/14/2024 1:10 PM Provider contact with the patient Reddy Hawk CC: Fall (Pt coming in from outpatient neurology. Pt was seen because he was receiving botox injections. It was mentioned that he also fell and the provider wanted him to be seen. Pt has staff with him. ) Chief complaint narrative was entered by triage nurse, not by provider Provider in Triage HPI: Reddy Hawk is a 54 year old male PMH as noted below who presents with injuries after a fall this morning. Pt states right leg collapsed underneath him. Crawled back to hischair. Used his left side to get back in it. Hx of CVA Jul 2023, has right side residual. Pt statesfeels this comes from his neck. Sees neurosurgery at [facility]. Saw Dr. Michaud this morning who brought him over here. 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 Pt reporting pain neck, thoracic, lumbar, right hip and right buttock and right knee. No pain in right arm. Took [id number] right after fall at 0400. Pt is on blood thinners-aspirin. Doesn't get relief with tylenol. Pt is due to have surgery by Dr. Sheffield of his spine but hasn't had it done yet. Pt is ready for surgery Limited Chart History: Past Medical History: Diagnosis Date Chronic pain CVA (cerebral vascular accident) (HCC) HTN (hypertension) Past Surgical History: Procedure Laterality Date Back Surgery Cardiac Catherization N/A 10/26/2023 N/A; Left Heart Cath Cardiac Catherization N/A 10/26/2023 N/A; Coronary Angiography Cholecystectomy HAND SURGERY RI CHEMODENERV 1 EXTREM 5/> MUS 01/01/2024 RI CHEMODENERV 1 EXTREM 5/> MUS 04/01/2024 RI CHEMODENERV 1 EXTREM 5/> MUS 07/11/2024 RI CHEMODENERV 1 EXTREM 5/> MUS 10/14/2024 RI NDL EMG GDN CONJUNCT CHEMODNRVTJ 04/01/2024 RI NDL EMG GDN CONJUNCT CHEMODNRVTJ 07/11/2024 RI NDL EMG GDN CONJUNCT CHEMODNRVTJ 10/14/2024 Shoulder Replacement No current facility-administered medications for this encounter. Current Outpatient Medications Medication Sig Dispense Refill amLODIPine (Norvasc) 10 MG tablet Take 1 (one) tablet by mouth once daily 90 tablet 3 aspirin (Aspirin) 81 MG chew tablet Take 1 (one) tablet by mouth once daily 30 tablet 11 atorvastatin (Lipitor) 40 MG tablet Take 1 (one) tablet by mouth at bedtime 30 tablet 11 baclofen (Lioresal) 10 MG tablet Take 0.5 (one-half) tablet by mouth 3 times daily May cause drowsiness. 45 tablet 5 botulinum toxin type A 100 units/1 ml (Botox) 100 UNIT injection Inject 5 mL into muscle Every 90 days for 90 days Reasons: Muscle Spasticity 5 mL 3 carvedilol (Coreg) 6.25 MG tablet TAKE 1 TABLET BY MOUTH TWICE DAILY WITH MORNING MEAL AND WITH EVENING MEAL 180 tablet 0 clindamycin (Cleocin) 300 MG capsule TAKE 1 CAPSULE BY MOUTH EVERY 6 HOURS FLUoxetine (PROzac) 20 MG capsule Take 1 (one) capsule by mouth once daily (Patient not taking: Reported on 07/11/2024) 30 capsule 2 furosemide (Lasix) 20 MG tablet Take 1 (one) tablet by mouth once daily 90 tablet 3 metFORMIN (Glucophage) 500 MG tablet Take 1 (one) tablet by mouth 2 times daily with morning and evening meal 60 tablet 2 spironolactone (Aldactone) 25 MG tablet Take 1 (one) tablet by mouth once daily 90 tablet 3 valsartan (Diovan) 40 MG tablet Take 1 (one) tablet by mouth 2 times daily 180 tablet 3 No Known Allergies PCP: NORBERTO Donald (Above may be pending completion) Review of Systems: Primary System Noted in HPI. All other systems reviewed and are negative. Vital Signs reviewed in Triage BP 152/89 Pulse 73 Temp 98.2 ??F (36.8 ??C) Resp 18 Ht 1.905 m (6' 3 ) Wt 128.4 kg (283 lb 1.1 oz) SpO2 98% Pertinent Physical Findings: Constitutional: vitals as above, groomed, obese, nontoxic but appears uncomfortable Head: Head normocephalic, atraumatic Eyes: conjunctiva clear ENT: no rhinorrhea or epistaxis Resp: respirations even and unlabored CV:no chest wall ttp Abd: soft, no abd ttp Skin: warm, dry,color normal for ethnicity MSK: in wheelchair, No pain with palpation of extremities bilat, No obvious deformities or swelling. Neuro: A&O x 3, speech clear and appropriate, right residual post cva. Psych: Normal affect Complete physical exam is limited due to patient sitting in up right position in chair MDM: I have reviewed all lab and imaging resulted ordered during this visit and available at the time ofthis note. Triage notes and available nursing notes reviewed. Previous medical record reviewed whenavailable. Management options include but not limited to: physical exam, laboratory testing, discussion with other providers. PLAN Diagnostic tests ordered: No orders of the defined types were placed in this encounter. MEDICATIONS FOR CURRENT ENCOUNTER: SCHEDULED MEDICATIONS: [COMPLETED] onabotulinumtoxin A (BOTOX) injection 500 Units, Intramuscular, Once CONTINUOUS MEDICATIONS: No current facility-administered medications for this encounter. PRN MEDICATIONS: No current facility-administered medications for this encounter. Clinical Impression: 1.fall Based on the Medical Screening Exam performed and diagnostic tests at this time, further evaluationis indicated and will be performed. Patient will be transferred to a main ED room when one is available and care will be transferred to ER provider. ELIZABETH Miller KER OUT documented in this encounter Plan of Treatment Upcoming Encounters Date Type Department Care Team (Late st Contact Info) Description 11/18/2024 3:30 PM CDT Office Visit [facility] - Cardiology [address], [facility] [place] [address] [place] [address] Isidro Bellamy MD [address] [facility] CARDI[place]ASCULAR [place] [address] 01/13/2025 9:00 AM CDT Procedure visit [facility] - Neurology [address] [place] [address], [place] [address] Sukh Michaud MD [address] [facility] 1L [place] [phone] 04/14/2025 9:00 AM CDT Procedure visit [facility] - Neurology [address] [place] [address], [place] [address] Sukh Michaud MD [address] [facility] [address]L [place] [phone] documented as of this encounter Procedures Procedure Name Priority Date/Time Associated Diagnosis Comments CT LUMBAR SPINE WO CONTRAST STAT 10/14/2024 2:28 PM SHANKER OUT Fall, initial encounter CT THORACIC SPINE WO CONTRAST STAT 10/14/2024 2:28 PM SHANKER OUT Fall, initial encounter CT CERVICAL SPINE WO CONTRAST STAT 10/14/2024 2:28 PM SHANKER OUT Fall, initial encounter URINALYSIS W/MICROSCOPIC NO CULTURE STAT 10/14/2024 1:50 PM SHANKER OUT documented in this encounter Results * CT Lumbar Spine Wo Contrast (10/14/2024 2:28 PM SHANKER OUT) Anatomical Region Laterality Modality Spine Computed Tomogra phy 10/14/2024 3:12 PM SHANKER OUT Impressions 10/14/2024 4:00 PM SHANKER OUT IMPRESSION: Motion degraded study, worst at the mid cervical spine. 1.No CT evidence of acute fracture in the cervical, thoracic, or lumbar spine. 2.Severe cervical spinal canal stenosis, worst at C5-6. 3.Moderate lumbar spinal canal stenosis. > Dictated by Tomi Cheney D.O. - Diagnostic Room Attendant. I, Mk Wellington MD have personally reviewed and interpreted this examination/study. > Interpreting Provider: Mk Wellington MD on 10/14/2024 4:00 PM Narrative 10/14/2024 4:00 PM SHANKER OUT PROCEDURE: CT CERVICAL SPINE WO CONTRAST, CT THORACIC SPINE WO CONTRAST, CT LUMBAR SPINE WO CONTRAST, DATE/TIME OF EXAM: 10/14/2024 2:37 PM, LOCATION [facility] INDICATION: W19.XXXA: Fall, initial encounter EXAMINATION: 1.CT of the cervical spine without contrast 2.CT of the thoracic spine without contrast 3.CT of the lumbar spine without contrast ADDITIONAL CLINICAL INFORMATION: Ordering Provider Reason For Exam: r/o worsening stenosis, fx, misalignment (accession [id number]), r/o fx, stenosis, misalignment (accession [id number]), r/o fx, misalignment, stenosis, ddd, other (accession [id number]) Technologist Note: Additional: TECHNIQUE: CT of the [...] DATE/TIME OF EXAM: 10/14/2024 2:37 PM, LOCATION [facility] INDICATION: W19.XXXA: Fall, initial encounter EXAMINATION: 1.CT of the cervical spine without contrast 2.CT of the thoracic spine without contrast 3.CT of the lumbar spine without contrast ADDITIONAL CLINICAL INFORMATION: Ordering Provider Reason For Exam: r/o worsening stenosis, fx, misalignment (accession [id number]), r/o fx, stenosis, misalignment (accession [id number]), r/o fx, misalignment, stenosis, ddd, other (accession [id number]) Technologist Note: Additional: TECHNIQUE: CT of the [...] Dictated by Tomi Cheney D.O. - Diagnostic Room Attendant. Mk French MD have personally reviewed and interpreted this examination/study. > Interpreting Provider: Mk Wellington MD on 10/14/2024 4:00 PM Domonique Matthews ELECTRICAL ENGINEERING TECHNOLOGIST-HEAD OPERATOR CT ORDERABLE S * CT Thoracic Spine Wo Contrast (10/14/2024 2:28 PM SHANKER OUT) Anatomical Region Laterality Modality Spine Computed Tomogra phy 10/14/2024 3:12 PM SHANKER OUT Impressions 10/14/2024 4:00 PM SHANKER OUT IMPRESSION: Motion degraded study, worst at the mid cervical spine. 1.No CT evidence of acute fracture in the cervical, thoracic, or lumbar spine. 2.Severe cervical spinal canal stenosis, worst at C5-6. 3.Moderate lumbar spinal canal stenosis. > Dictated by Tomi Cheney D.O. - Diagnostic Room Attendant. Mk French MD have personally reviewed and interpreted this examination/study. > Interpreting Provider: Mk Wellington MD on 10/14/2024 4:00 PM Narrative 10/14/2024 4:00 PM SHANKER OUT PROCEDURE: CT CERVICAL SPINE WO CONTRAST, CT THORACIC SPINE WO CONTRAST, CT LUMBAR SPINE WO CONTRAST, DATE/TIME OF EXAM: 10/14/2024 2:37 PM, LOCATION [facility] INDICATION: W19.XXXA: Fall, initial encounter EXAMINATION: 1.CT of the cervical spine without contrast 2.CT of the thoracic spine without contrast 3.CT of the lumbar spine without contrast ADDITIONAL CLINICAL INFORMATION: Ordering Provider Reason For Exam: r/o worsening stenosis, fx, misalignment (accession [id number]), r/o fx, stenosis, misalignment (accession [id number]), r/o fx, misalignment, stenosis, ddd, other (accession [id number]) Technologist Note: Additional: TECHNIQUE: CT of the [...] DATE/TIME OF EXAM: 10/14/2024 2:37 PM, LOCATION [facility] INDICATION: W19.XXXA: Fall, initial encounter EXAMINATION: 1.CT of the cervical spine without contrast 2.CT of the thoracic spine without contrast 3.CT of the lumbar spine without contrast ADDITIONAL CLINICAL INFORMATION: Ordering Provider Reason For Exam: r/o worsening stenosis, fx, misalignment (accession [id number]), r/o fx, stenosis, misalignment (accession [id number]), r/o fx, misalignment, stenosis, ddd, other (accession [id number]) Technologist Note: Additional: TECHNIQUE: CT of the [...] Dictated by Tomi Cheney D.O. - Diagnostic Room Attendant. Mk French MD have personally reviewed and interpreted this examination/study. > Interpreting Provider: Mk Wellington MD on 10/14/2024 4:00 PM Domoniquejonathan Rendondylan ELECTRICAL ENGINEERING TECHNOLOGIST-HEAD OPERATOR CT ORDERABLE S * CT Cervical Spine Wo Contrast (10/14/2024 2:28 PM SHANKER OUT) Anatomical Region Laterality Modality Spine Computed Tomogra phy 10/14/2024 3:12 PM SHANKER OUT Impressions 10/14/2024 4:00 PM SHANKER OUT IMPRESSION: Motion degraded study, worst at the mid cervical spine. 1.No CT evidence of acute fracture in the cervical, thoracic, or lumbar spine. 2.Severe cervical spinal canal stenosis, worst at C5-6. 3.Moderate lumbar spinal canal stenosis. > Dictated by Tomi Cheney D.O. - Diagnostic Room Attendant. Mk French MD have personally reviewed and interpreted this examination/study. > Interpreting Provider: Mk Wellington MD on 10/14/2024 4:00 PM Narrative 10/14/2024 4:00 PM SHANKER OUT PROCEDURE: CT CERVICAL SPINE WO CONTRAST, CT THORACIC SPINE WO CONTRAST, CT LUMBAR SPINE WO CONTRAST, DATE/TIME OF EXAM: 10/14/2024 2:37 PM, LOCATION [facility] INDICATION: W19.XXXA: Fall, initial encounter EXAMINATION: 1.CT of the cervical spine without contrast 2.CT of the thoracic spine without contrast 3.CT of the lumbar spine without contrast ADDITIONAL CLINICAL INFORMATION: Ordering Provider Reason For Exam: r/o worsening stenosis, fx, misalignment (accession [id number]), r/o fx, stenosis, misalignment (accession [id number]), r/o fx, misalignment, stenosis, ddd, other (accession [id number]) Technologist Note: Additional: TECHNIQUE: CT of the [...] DATE/TIME OF EXAM: 10/14/2024 2:37 PM, LOCATION [facility] INDICATION: W19.XXXA: Fall, initial encounter EXAMINATION: 1.CT of the cervical spine without contrast 2.CT of the thoracic spine without contrast 3.CT of the lumbar spine without contrast ADDITIONAL CLINICAL INFORMATION: Ordering Provider Reason For Exam: r/o worsening stenosis, fx, misalignment (accession [id number]), r/o fx, stenosis, misalignment (accession [id number]), r/o fx, misalignment, stenosis, ddd, other (accession [id number]) Technologist Note: Additional: TECHNIQUE: CT of the [...] Dictated by Tomi Cheney D.O. - Diagnostic Room Attendant. I, Mk Wellington MD have personally reviewed and interpreted this examination/study. > Interpreting Provider: Mk Wellington MD on 10/14/2024 4:00 PM Domonique Matthews ELECTRICAL ENGINEERING TECHNOLOGIST-HEAD OPERATOR CT ORDERABLE S * (ABNORMAL) URINALYSIS W/MICROSCOPIC NO CULTURE (10/14/2024 1:50 PM SHANKER OUT) Color UA Yellow Straw, Yellow 10/14/2024 2:17 PM SHANKER OUT [facility] Clarity UA Clear Clear 10/14/2024 2:17 PM SHANKER OUT [facility] Specific [place] UA 1.011 1.005 - 1.030 10/14/2024 2:17 PM SHANKER OUT [facility] pH UA 6.0 5.0 - 8.0 pH 10/14/2024 2:17 PM [facility] Protein UA Negative Negative 10/14/2024 2:17 PM [facility] Glucose UA Negative Negative 10/14/2024 2:17 PM [facility] Ketone UA Negative Negative 10/14/2024 2:17 PM [facility] Bilirubin UA Negative Negative 10/14/2024 2:17 PM [facility] Blood UA Negative Negative 10/14/2024 2:17 PM [facility] Nitrite UA Negative Negative 10/14/2024 2:17 PM [facility] Leukocyte Esterase Trace(A) Negative 10/14/2024 2:17 PM [facility] Urobilinogen UA Negative Negative mg/dL 10/14/2024 2:17 PM [facility] RBC UA 3-5 None Seen, 0-2, 3-5 /HPF 10/14/2024 2:17 PM [facility] WBC UA 0-5 None Seen, 0-5 /HPF 10/14/2024 2:17 PM [facility] Squamous Epithelial Cells UA None Seen None Seen, 0-2, 3-5 /HPF 10/14/2024 2:17 PM [facility] Urine URINE SPECIMEN OBTAINED BY CLEAN CATCH PROCEDURE / Unknown Collection / Unknown 10/14/2024 1:50 PM SHANKER OUT 10/14/2024 1:59 PM [facility] - 10/14/2024 2:17 PM SHANKER OUT Emre Moore MD LAB - URINALYSIS ORD ERABLES Performing Organization Address City/State/[facility] Co de Phone Number [facility] [address] [place] [phone], [facility] [phone] documented in this encounter Visit Diagnoses Diagnosis Fall, initial encounter documented in this encounter Administered Medications Inactive Administered Medications - up to 3 most recent administrations Medication Order MAR Action Action Date Dose Rate Site acetaminophen (Tylenol) tablet 1,000 mg 1,000 mg, Oral, NOW, 1 dose, On Sun10/14/24 at 1330, Patient preference for lesser PRN pain meds may be honored when the patient requests a less strong medication, a lower dose, or a less intrusive route of administration when the lesser drug, dose and route have been ordered for the patient. This patient request must be documented in the MAR. If both oral and IV options are ordered for the same pain severity, give oral first unless patient cannot tolerate oral intake $ Given 10/14/2024 1:49 PM SHANKER OUT 1,000 mg cyclobenzaprine (Flexeril) tablet 10 mg 10 mg, Oral, NOW, 1 dose, On Tu10/14/24 at 1330 $ Given 10/14/2024 1:49 PM SHANKER OUT 10 mg documented in this encounter Active and Recently Administered Medications Times are shown in SHANKER OUT. Scheduled Medication Order 10/12/2024 10/13/2024 10/14/2024 acetaminophen (Tylenol) tablet 1,000 mg (COMPLETED) 1,000 mg, Oral, NOW, 1 dose, On Sun10/14/24 at 1330, Patient preference for lesser PRN pain meds may be honored when the patient requests a less strong medication, a lower dose, or a less intrusive route of administration when the lesser drug, dose and route have been ordered for the patient. This patient request must be documented in the MAR. If both oral and IV options are ordered for the same pain severity, give oral first unless patient cannot tolerate oral intake 1349 ($ Given - Prov ider: Sachi Womack RN) cyclobenzaprine (Flexeril) tablet 10 mg (COMPLETED) 10 mg, Oral, NOW, 1 dose, On Sun10/14/24 at 1330 1349 ($ Given - Prov ider: Sachi Womack RN) documented in this encounter Care Teams Income Tax Investigator Relationship Specialty Start Date End Date Erika Kimble PA [address] [place] [address] PCP - General Physician Heliarc Welder 11/26/23 documented as of this encounter
--- OUTSIDE RECORDS SUMMARY | 2024-10-15 05:16 | XMS_ITS | Encounter Summary ---
Author Organization [facility] Address [address] [facility] [place] [address] Care Team Providers Care Chestnut Tanner Name Role Phone Erika Kimble Primary Care Pr ovider Reason for Visit * Reason Comments Botox * Procedure (Routine) - Closed Specialty Diagnoses / Procedures Referred By Pieter t Referred To Contact Neurology Diagnoses Other muscle spasm Procedures DE BOTULINUM TOXIN TYPE A PER UNIT DE CHEMODENERV ONE EXTREM 1-4 MUSCLES Sukh Michaud MD [address] [place] [address] [address] [facility] [place] [address] Sukh Michaud MD [address] [place] [address] [address] [place] [address] Referral ID Status Reason Start Date Expiration Date Visits Re quested Visits Authorized [id number] Closed 11/28/2023 11/27/2024 4 4 Encounter Details Date Type Department Care Team (Late st Contact Info) Description 10/14/2024 9:00 AM HUMAN FACTORS SPECIALIST Procedure visit [facility] - Neurology [address] [place] [address], [place] [address] Sukh Michaud MD [address] [place] [address] [address] [place] [address] Muscle spasticity Social History Tobacco Use Types Packs/Day Years [...] Recorded Patient Health Questionnaire-2 Score 1 07/22/2023 [facility] - [...] place to sleep or slept in a half-way (including now)? No 07/20/2023 Sex and Gender Information Value Date Recorded Sex Assigned at Not on file Gender Identity Not on file Sexual Orientation Not on file documented as of this encounter Last Filed Vital Signs Vital Sign Reading Time Taken Comments Blood Pressure 139/86 10/14/2024 10:43 AM HUMAN FACTORS SPECIALIST Pulse 76 10/14/2024 10:43 AM HUMAN FACTORS SPECIALIST Temperature - - Respiratory Rate - - Oxygen Saturation 99% 10/14/2024 10:43 AM HUMAN FACTORS SPECIALIST Inhaled Oxygen Concentration - - Weight 128.4 kg (283 lb) 10/14/2024 10:43 AM HUMAN FACTORS SPECIALIST Height - - Body Mass Index 35.37 01/01/2024 9:49 AM CDT documented in this encounter Functional Status Functional [...] No 07/19/2023 documented as of this encounter Progress Notes * Sukh Michaud MD - 10/14/2024 11:08 AM CST Neurology Note Date of Encounter: 10/14/24 Chief Complaint: Botox Eval HPI: Reddy Hawk is a 54 year old right handed male with a history of HTN and 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 In July he had dense right sided weakness, slurred speech and was found to have a L posterior internal capsule infarct for which he received TNK. He had stroke workup and then was discharged to rehab still with dense right sided weakness. When he discharged from rehab he states his dysarthria and right leg strength had improved significantly however his right arm was still weak and becoming stiffer and stuck. He has continued PT/OT for his right arm however this is becoming difficult as his right arm is getting stiffer and becoming more painful when therapists extend his arm. He is using a cane for walking and denies recent falls, he has some stiffness in his leg however he has most full ROM in his leg and can move all his joints without pain. He was last seen in clinic on 07/11/2024 and had the injection of Botox 500 units. He said that within a few days he had benefit especially in being able to raise the right arm above the shoulder and open at the elbow. He has had more improvement in the stiffness at the wrist and the fingers. He hasworked with PT and OT and they have also recommended that he get more injections in his forearm to loosen up his wrist and fingers. They also recommended injection into the right calf muscles to reduce the flexion contracture at the ankle. He had no adverse effects from the last injection. He is back here today for the next injection of 500 U. He had a fall today and says that he has severe pain along the spine and plans to go to the ED after the Botox injection to be evaluated. ROS: General - Denies changes in weight or appetite ENT - Denies dental or swallowing difficulties Cardiac - Denies chest pain or palpitations Pulmonary - Denies shortness of breath, cough, or sputum production Gastrointestinal - Denies abdominal pain or changes in bowel habits Genitourinary - Denies changes in bladder habits Endocrine - Denies heat or cold intolerance Musculoskeletal - Denies myalgias or arthralgias Hematological - Denies history of malignancy or blood abnormalities Neurological - See HPI Allergies: No Known Allergies Current Outpatient Medications Medication Sig amLODIPine (Norvasc) 10 MG tablet Take 1 (one) tablet by mouth once daily aspirin (Aspirin) 81 MG chew tablet Take 1 (one) tablet by mouth once daily atorvastatin (Lipitor) 40 MG tablet Take 1 (one) tablet by mouth at bedtime baclofen (Lioresal) 10 MG tablet Take 0.5 (one-half) tablet by mouth 3 times daily May cause drowsiness. botulinum toxin type A 100 units/1 ml (Botox) 100 UNIT injection Inject 5 mL into muscle Every 90 days for 90 days Reasons: Muscle Spasticity carvedilol (Coreg) 6.25 MG tablet TAKE 1 TABLET BY MOUTH TWICE DAILY WITH MORNING MEAL AND WITH EVENING MEAL clindamycin (Cleocin) 300 MG capsule TAKE 1 CAPSULE BY MOUTH EVERY 6 HOURS FLUoxetine (PROzac) 20 MG capsule Take 1 (one) capsule by mouth once daily (Patient not taking: Reported on 07/11/2024) furosemide (Lasix) 20 MG tablet Take 1 (one) tablet by mouth once daily metFORMIN (Glucophage) 500 MG tablet Take 1 (one) tablet by mouth 2 times daily with morning and evening meal spironolactone (Aldactone) 25 MG tablet Take 1 (one) tablet by mouth once daily valsartan (Diovan) 40 MG tablet Take 1 (one) tablet by mouth 2 times daily No current facility-administered medications for this visit. Past Medical History: Diagnosis Date Chronic pain CVA (cerebral vascular accident) (HCC) HTN (hypertension) Family History Problem Relation Name Age of Onset CAD (Coronary Artery Disease) Father Diabetes Father Cancer Mother Social History Socioeconomic History Marital status: Single Spouse name: Not on file Number of children: Not on file Years of education: Not on file Highest education level: Not on file Occupational History Not on file Tobacco Use Smoking status: Light Smoker Current packs/day: 1.00 Types: Cigarettes Smokeless tobacco: Never Vaping Use Vaping status: Never Used Substance and Sexual Activity Alcohol use: Not Currently Drug use: Not Currently Sexual activity: Not on file Other Topics Concern Not on file Social History Narrative Not on file Social Determinants of Health Financial Resource Strain: Low Risk (07/20/2023) Overall Financial Resource Strain (CARDIA) Difficulty of Paying Living Expenses: Not hard at all Food Insecurity: No Food Insecurity (07/20/2023) Hunger Vital Sign Worried About Running Out of Food in the Last Year: Never true Ran Out of Food in the Last Year: Never true Transportation Needs: No Transportation Needs (07/20/2023) PRAPARE - Transportation Lack of Transportation (Medical): No Lack of Transportation (Non-Medical): No Stress: Stress Concern Present (07/20/2023) [facility] - Occupational Stress Questionnaire Feeling of Stress : Very much Housing Stability: High Risk (07/20/2023) Housing Stability Vital Sign Unable to Pay for Housing in the Last Year: Yes Number of Places Lived in the Last Year: 1 Unstable Housing in the Last Year: No Physical Exam: Vitals: 10/14/24 1043 BP: 139/86 Pulse: 76 SpO2: 99% Weight: 128.4 kg (283 lb) General: Con - NAD, afebrile. In severe pain from the fall and has pain in the right shoulder with passive movement. Heent - NCAT, MMM, anicteric Neck - No JVD, LAD, trachea midline Ext: No c/c/e, 2+ dpp, normal ROM Cortical Function Mental Status Awake, alert, follows commands Orientation Person, place, time, and situation Language Mild dysarthria only noticeable when speaking quickly, comprehension intact, repetition intact Visual Deras Intact bilaterally to confrontation Neglect No visual neglect noted, no tactile neglect noted Cranial Nerves II Pupils 4 mm and bilaterally reactive to light. Fundoscopic exam not performed. VIII Hearing is intact bilaterally to finger rub. III/IV/ Extraocular muscles intact. No diplopia, ptosis, nystagmus or convergence abnormalities noted. IX/X Palate elevated symmetrically without phonation abnormalities noted. V Facial sensation symmetric to light touch and intact bilaterally. Corneal reflex not examined. XIHead turning and shoulder shrug are intact. VII Mild Right UMN palsy XII Tongue is midline with normal movements and no atrophy noted. Motor Function Movement No abnormalities noted Bulk No abnormalities noted Tone Increased tone in right upper extremity Cedrick Scale Right Biceps: 2 Pectoralis Major: 1 Pronator Teres:3 Fexor carpus radialis:2 Flexor carpus ulnaris:2 Flexor digitorum superficialis:2 Gastrocnemius soleus 3 Proximal Upper Distal Upper Proximal Lower Distal Lower Right 4/5 1/5 4+/5 4/5 Left 5/5 5/5 5/5 5/5 Neck flexors - 5/5 Neck extensors - 5/5 Muscle Stretch Reflexes BI TRI BR PAT ACH Right 0 3 3 3 3 Left 2 2 2 2 2 Sensory Large Fiber Sensation Light Touch Symmetrically intact, distally and proximally. Small Fiber Sensation Noxious Stimuli Symmetrically intact, distally and proximally. Temperature Symmetrically intact, distally and proximally. Cerebellar FNF Right Deferred Left Intact Gait Slight circumduction in right leg however no toe walking. Overall good stride length. Assessment: 54 year old male presenting post stroke with right arm spasticity for botox injection. Plan: Continue baclofen 5mg TID for spasticity Has come today for Botox injection. Explained risks and benefits of Botox. The patient expressed understanding and would like to be injected. Diluted in non preserved saline 1 ml per 100 units vial and drawn in Tuberculin syringe with non luer lock and fitted to Botox EMG/injection needle. Under EMG guidance, injected - Right Biceps brachii 150 units Pronator teres 50 units FCR 100 units FCU 3 30 units FDS 2 150 units FPL 2 20 units Total 500 U injected. Tolerated the procedure well. No immediate AE seen. Continue PT and stretching Ordered 500 units for the next visit. Will consider inject 100 units into the right gastrocnemius. RTC 3 months Signed Electronically Sukh Michaud MD, FRCP, Professor of Neurology, Director, Movement Disorders N FACTORS SPECIALIST documented in this encounter Procedure Notes * Sukh Michaud MD - 10/14/2024 12:18 PM CSTAssociated Order(s): PROC INJECTION - BOTOX Procedure(s): DE NDL EMG GDN CONJUNCT CHEMODNRVTJ; DE CHEMODENERV 1 EXTREM 5/> MUS Pre-Procedure Diagnose(s): Muscle spasticity See procedure note for documentation. N FACTORS SPECIALIST documented in this encounter Plan of Treatment Upcoming Encounters Date Type Department Care Team (Late st Contact Info) Description 11/18/2024 3:30 PM CDT Office Visit [facility] - Cardiology [address] [facility] [address] [place] [address] Isidro Bellamy MD [address] [facility] [place] [address] 01/13/2025 9:00 AM CDT Procedure visit [facility] - Neurology [address] [place] [address], [place] [address] Sukh Michaud MD [address] [facility] [address] [place] [address] 04/14/2025 9:00 AM CDT Procedure visit [facility] - Neurology [address] [place] [address] Sukh Michaud MD [address] [facility] [address] [place] [address] documented as of this encounter Procedures Procedure Name Priority Date/Time Associated Diagnosis Comments DE CHEMODENERV 1 EXTREM 5/> MUS Routine 10/14/2024 12:18 PM HUMAN FACTORS SPECIALIST Muscle spasticity DE NDL EMG GDN CONJUNCT CHEMODNRVTJ Routine 10/14/2024 12:18 PM HUMAN FACTORS SPECIALIST Muscle spasticity documented in this encounter Results * DE NDL EMG GDN CONJUNCT CHEMODNRVTJ, DE CHEMODENERV 1 EXTREM 5/> MUS (10/14/2024 12:18 PM HUMAN FACTORS SPECIALIST) Narrative Sukh Michaud MD - 10/14/2024 12:18 PM HUMAN FACTORS SPECIALIST Sukh Michaud MD 10/14/2024 12:19 PM See procedure note for documentation. Sukh Michaud MD PROCEDURE/MINOR SURG ICAL ORDERABLES documented in this encounter Visit Diagnoses Diagnosis Muscle spasticity- Primary Spasm of muscle documented in this encounter Administered Medications Inactive Administered Medications - up to 3 most recent administrations Medication Order MAR Action Action Date Dose Rate Site onabotulinumtoxin A (BOTOX) injection 500 Units 500 Units, Intramuscular, ONCE, 1 dose, On Sun10/14/24 at 1245 $ Given 10/14/2024 12:20 PM HUMAN FACTORS SPECIALIST 500 Units Right Arm documented in this encounter Care Teams Chestnut Tanner Relationship Specialty Start Date End Date Erika Kimble PA [address] [place] [address] PCP - General Physician Poultry Debeaker 11/26/23 documented as of this encounter
--- OUTSIDE RECORDS SUMMARY | 2024-10-15 05:16 | XMS_ITS | Encounter Summary ---
Author Organization [facility] Address [address] [place] [address] Care Team Providers Care Project Builder Name Role Phone Erika Kimble Primary Care Pr ovider Reason for Visit * Reason Comments Refill Request Encounter Details Date Type Department Care Team (Late st Contact Info) Description 10/01/2024 Refill [facility] - Cardiology [address] [facility] [address] [place] [address] Janessa Rivera PA [address] [place] [address] Refill Request Social History Tobacco Use Types Packs/Day Years [...] Recorded Patient Health Questionnaire-2 Score 1 07/22/2023 [facility] - Occupational Stress [...] place to sleep or slept in a long-term (including now)? No 07/20/2023 Sex and Gender Information Value Date Recorded Sex Assigned at Not on file Gender Identity Not on file Sexual Orientation Not on file documented as of this encounter Functional Status Functional Status Response [...] No 07/19/2023 documented as of this encounter Miscellaneous Notes * Telephone Encounter - Janessa Rivera PA - 10/08/2024 1:59 PM CST Needs annual- preferably with an attending since patient has only seen myself in clinic. Can refilluntil he is able to be in clinic though [employer] documented in this encounter Plan of Treatment Upcoming Encounters Date Type Department Care Team (Late st Contact Info) Description 11/18/2024 3:30 PM CDT Office Visit [facility] - Cardiology [address] [place] [address] Isidro Bellamy MD [address] [facility] [place] [address] 01/13/2025 9:00 AM CDT Procedure visit [facility] - Neurology [address] [place] [address], [place] [address] Sukh Michaud MD [address] [facility] [address] [place] [address] 04/14/2025 9:00 AM CDT Procedure visit [facility] - Neurology [facility] [facility], [place] [address] Sukh Michaud MD [address] [facility] [address] [place] [address] documented as of this encounter Visit Diagnoses Not on filedocumented in this encounter Care Teams Project Builder Relationship Specialty Start Date End Date Erika Kimble PA [address] [place] [id number] PCP - General Physician Security Rep 11/26/23 documented as of this encounter
[2024-10-15] MEDS: HYDROmorphone HCL INJ (*CRX) 1 MG/ML SYR IM (05:31)
[2024-10-15 05:43] LABS: Add Urine Microscopic? YES; Appearance Urine Clear (Clear); Bacteria Urine None Seen /hpf; Bilirubin Urine Negative (Negative); Blood Urine Negative (Negative); Color Urine Yellow (Yellow); Glucose Urine UA Negative (Negative); Ketones Urine Negative (Negative); Leukocyte Esterase Ur Trace LEU/UL (Negative); Nitrate Urine Negative (Negative); Non Pathogenic Casts 0-2; Protein Urine Negative (Negative); RBC Urine 0-2 /hpf (0-2); Specific Grav Ur 1.015 (1.001-1.035); Squamous Epithelial Cell Urine None Seen /hpf (Few)
[2024-10-15] MEDS: diazePAM (*CRX) 5 MG TABLET PO (06:24)
[2024-10-15] MEDS: predniSONE 20 MG TABLET 40 MG PO (06:30)
== END 2024-10-15 07:15 | disposition home or self-care (01) ==
PROVIDERS: Emergency Provider Student in an Organized Health Care Education/Training Program; PCP Physician Assistant
DX: M54.41 Lumbago with sciatica, right side (principal); R82.81 Pyuria; I69.951 Hemiplegia and hemiparesis following unspecified cerebrovascular disease affecting right dominant side; Z87.891 Personal history of nicotine dependence; Z90.49 Acquired absence of other specified parts of digestive tract
CPT/HCPCS: 72131; 81001; 87086; 96372; 99284; A9270; J1171; J7512